=== PATIENT | female | born 1945 | race Caucasian/White ===

== ENCOUNTER 2018-09-16 08:00 | Outpatient (CLI) | payer MEDICARE, OTHER ==
--- NOTE | 2018-09-16 10:56 | MRI ---
BRAIN MRI WITHOUT CONTRAST: Date: 09-16-18 Comparison: None. History: Altered mental status, confusion, and memory loss. Technique: Multiplanar, multisequence MR imaging of the brain is obtained without contrast. FINDINGS: The diffusion weighted imaging demonstrates no evidence for acute infarction and the gradient echo im aging demonstrates no evidence for intracranial hemorrhage. There is a complex intraaxial mass lesion on the right. This lesion is markedly heterogeneous. It dem onstrates a complex lobulated T2 hyperintense component which measures 3.9 x 3.2 cm with internal poly ear septations. There is vasogenic edema adjacent to this posterior component involving the temporal/ occipital region abutting the lateral aspect of the atrium of the right lateral ventricle. There is a lobulated isointense component anteriorly measuring at least 3.8 x 3.9 cm. Thus, this complex lesion centered in the frontotemporal region on the right measures at least 7.3 cm in AP dimension and 4.6 cm in transverse dimension. There is resultant prominent mass effect. There is midline shift from rig ht to left measuring approximately 8-9 mm at the level of the third ventricle. There is associated waddell bfalcine herniation with mild dilation of the left lateral ventricle and mass effect on the right francis tricle. There is also mass effect on the midbrain with flattening of the cerebral peduncle on the rig ht. The imaged paranasal sinuses/mastoid air cells are well aerated. Arterial flow voids at the axial lev el of the skull base appear grossly unremarkable on the T2 weighted imaging. IMPRESSION: 1. Large complex intraaxial lesion with associated mass effect in the frontotemporal region on the ri ght. Findings are hardly concerning for primary brain neoplasm, such as GBM. Recommend further assess ment with contrast enhanced MRI. Recommend neural surgical consultation as well. Results were called to Dr. Parada at 9:15 a.m. 09-16-18. Code CR. POS: [facility]
== END 2018-09-16 08:01 | disposition home or self-care (01) ==
LOC: BICMRI 08:00
PROVIDERS: ATTEND Family Medicine
DX: R41.82 Altered mental status, unspecified (principal); G93.89 Other specified disorders of brain; R22.0 Localized swelling, mass and lump, head
CPT/HCPCS: 70551

== ENCOUNTER 2018-09-20 11:53 | Outpatient (CLI) | payer MEDICARE, OTHER ==
[~2018-09-20 11:53] MED LIST: Gadobenate Dimeglumine 529 MG/1 ML (20ML VIAL) ONE
--- NOTE | 2018-09-20 14:30 | MRI ---
CONTRAST ENHANCED MRI BRAIN: 09/20/2018 COMPARISON: 09/16/2018 FINDINGS: Contrast enhanced MR images of the brain demonstrate a complex right middle cranial fossa mass. The lesion appears to have a large enhancing component anteriorly. The enhancing component measures 3.9 x 3.4 x 4.2 cm. The lesion appears to be dural-based and appears to originate in the right middle cr anial fossa dura, extending posteriorly, into the right middle cranial fossa, with a cystic component posteriorly, extending into the right temporal lobe. The adjacent areas of T2 signal abnormality ex tend into the right temporal lobe white matter. The mass extends anteriorly through the squamosal po rtion of the right temporal bone, abutting but not extending into the right automotive painter helper space. The differential diagnosis for this lesion includes dural mass, such as a meningioma, versus possibly dural metastases. IMPRESSION: Findings concerning for a dural-based intracranial enhancing mass. POS: VANDANA
== END 2018-09-20 11:54 | disposition home or self-care (01) ==
LOC: BICMRI 11:53 → EDSTATUS 12:45
PROVIDERS: ATTEND Neurological Surgery
DX: D49.6 Neoplasm of unspecified behavior of brain (principal)
CPT/HCPCS: 70552; A9577

== ENCOUNTER 2018-09-26 08:16 | Inpatient (IN) | payer MEDICARE ==
[2018-09-26] MEDS ORDERED: Bacitracin Zinc Ointment 30 gm TUBE ONE (10:44)
[2018-09-26 11:09] LABS: #Eosinphils 0.2 thou/uL (0.0-0.7); #Lymphocytes 1.3 thou/uL (1.20-3.40); #Monocytes 0.6 thou/uL (0.11-0.59); %Basophils 0.4 % (0.0-1.0); %Eosinophils 2.8 % (0.0-10.0); %Lymphocytes 17.8 % (21.0-51.0); %Monocytes 8.1 % (0.0-10.0); %Neutrophils 70.9 % (42.0-75.0); Hemoglobin 14.5 g/dL (12.0-16.0); Mean Corpuscular HGB CONC 33.2 g/dL (32.0-36.0); Mean Corpuscular Hemoglobin 32.7 pg (27.0-31.0); Mean Corpuscular Volume 98.5 fL (78.0-98.0); Mean Platelet Volume 7.6 fL (7.4-10.4); Platelet Count 174 thou/uL (130-400); RBC Distribution Width 12.1 % (11.5-14.5); Red Blood Cell (RBC) Count 4.42 mill/uL (4.20-5.40); White Blood Cell (WBC) Count 7.1 thou/uL (4.8-10.8)
[2018-09-26] MEDS ORDERED: Fentanyl 250 MCG/5 ML VIAL ONE (11:16)
[2018-09-26 11:23] LABS: Anion Gap 13 mmol/L (10-20); BUN (Urea Nitrogen) 18 mg/dL (9.8-20.1); Calc. Creatinine Clearance 61 mL/min (70-130); Calcium 10.9 mg/dL (7.8-10.44); Carbon Dioxide 28 mmol/L (23-31); Chloride 106 mmol/L (98-107); Estimated GFR-MDRD 66; Glucose 94 mg/dL (83-110); Potassium 4.4 mmol/L (3.5-5.1); Sodium 143 mmol/L (136-145)
[2018-09-26] MEDS ORDERED: Mannitol 12.5 GM/50 ML ONE (12:01)
[2018-09-26] MEDS ORDERED: Fentanyl 100 MCG/2 ML VIAL ONE ×2 (13:36→15:50)
[2018-09-26] MEDS ORDERED: hydrALAZINE 20 MG/ML VIAL ONE (14:24)
[2018-09-26] MEDS ORDERED: Nitroglycerin 50 MG/250 ML BOT 250 ML ONE (14:28)
[2018-09-26] MEDS ORDERED: Promethazine HCl 25 MG/ML VIAL SLOW IVP PRN (14:53)
[2018-09-26] MEDS ORDERED: Ondansetron HCl/PF 4 MG/2 ML Vial IVP PRN (14:53)
[2018-09-26] MEDS ORDERED: Promethazine HCl 25 MG/ML VIAL IM PRN ×2 (14:53→15:00)
[2018-09-26] MEDS ORDERED: Docusate 100 MG CAP PO PRN (15:00)
[2018-09-26] MEDS ORDERED: HYDROcodone/Acetaminophen 10/325 mg Tablet PO PRN ×2 (15:00)
[2018-09-26] MEDS ORDERED: Ondansetron PF 4 MG/2 ML Vial SLOW IVP PRN (15:00)
[2018-09-26] MEDS ORDERED: Morphine 4 MG/ML VIAL SLOW IVP PRN (15:00)
[2018-09-26] MEDS ORDERED: diphenhydrAMINE 50 MG CAP PO PRN (15:00)
[2018-09-26] MEDS ORDERED: Promethazine 25 MG TAB PO PRN (15:00)
[2018-09-26] MEDS ORDERED: Acetaminophen 650 MG Suppository PR PRN (15:00)
[2018-09-26] MEDS ORDERED: diphenhydrAMINE 50 MG/ML VIAL IVP PRN (15:00)
[2018-09-26] MEDS ORDERED: Mag-Al 1200 mg/1200 mg/30 ML UDCUP PO PRN (15:00)
[2018-09-26] MEDS ORDERED: Promethazine HCl 25 MG SUPP PR PRN (15:00)
[2018-09-26] MEDS ORDERED: ePHEDrine 50 MG/ML VIAL ONE (15:02)
[2018-09-26] MEDS ORDERED: Dexamethasone 20 MG/5 ML VIAL ONE (15:02)
[2018-09-26] MEDS ORDERED: PROPOFOL 200 MG/20 ML VIAL ONE (15:02)
[2018-09-26] MEDS ORDERED: Ondansetron PF 4 MG/2 ML Vial ONE (15:02)
[2018-09-26] MEDS ORDERED: Rocuronium Bromide 10 MG/ML (10ML VIAL) ONE (15:02)
[2018-09-26] MEDS ORDERED: Lidocaine 1% PF 5 ML VIAL ONE (15:02)
[2018-09-26] MEDS ORDERED: Dexamethasone 4 mg/ml Vial ONE (17:08)
--- NOTE | 2018-09-26 17:13 | CT ---
NONCONTRAST CT HEAD: Date: 09-26-18 History: Post craniotomy. No left sided movement. Comparison: MRI brain 09-20-18, 09-16-18. FINDINGS: Findings related to right sided craniotomy are noted with skin clips seen in the scalp soft tissues w ith scalp soft tissue swelling and subcutaneous emphysema related to post-surgical changes. There is evidence of pneumocephalus and gas and small amount of fluid seen within a subdural collection beneat h the craniotomy defect in the right anterior frontal region and in the middle cranial fossa. There i s a small amount of increased density seen in the right frontotemporal lobe likely related to interva l post-surgical change. Areas of vasogenic edema involving the right temporal lobe and extending to t he right parietal lobe are again present. However, there is a low density area seen within the right anterior frontal lobe which is beneath the craniotomy defect which was not seen on prior exam. Area o f infarction is a possibility. There is mass effect in the right cerebral hemisphere with sulcal effacement present. There is shift of the midline structures to the left measuring approximately 9-10 mm. There is mild effacement of th e right lateral ventricle compared to the left. Mercado-white differentiation on the left is maintained with evidence of chronic small vessel ischemic c hanges also seen on prior MRI exam. IMPRESSION: 1. Acute infarction involving the right anterior frontal lobe. 2. Post-surgical changes related to excision of the enhancing solid and cystic mass within the right frontotemporal region with overlying craniotomy defect. 3. Pneumocephalus with fluid beneath the craniotomy defect in a subdural location related to the post -operative change. 4. Stable vasogenic edema involving the right temporal and parietal occipital region similar to prior MRI exam. 5. Residual tumor is difficult to evaluate on this nonenhanced CT scan exam; although, there is a low density area seen within the posterior right temporal lobe which may be related to a small residual component of the cystic portion of the mass. 6. Mass effect right cerebral hemisphere with evidence of sulcal effacement and mass effect on the ri ght lateral ventricle. There is shift of the midline structures to the left measuring 9-10 mm. 7. Small amount of increased density in the subdural location in the post-operative bed likely attrib utable to a tiny amount of hemorrhage related to recent post-surgical change. 8. Finding of acute infarction discussed with Govind, nurse in ICU on 09/26/18 at 1750 hours. POS: VANDANA
[2018-09-26] MEDS: hydrALAZINE 20 MG/ML VIAL SLOW IVP PRN (19:08)
[2018-09-26] MEDS: Dexamethasone 4 mg/ml Vial SLOW IVP SCH ×2 (19:15→23:45)
[2018-09-26] MEDS: Sodium Chloride 0.9% 1,000 ML IV SCH (19:16)
--- NOTE | 2018-09-26 20:13 | OP ---
DATE OF PROCEDURE: 09/26/2018 ORACLE ADF DEVELOPER: Rey. PROCEDURES PERFORMED: Right frontotemporal craniotomy, resection of meningioma. DESCRIPTION OF PROCEDURE: The patient was brought to the operating room and intubated. She was positioned supine. The head was turned to left exposing the right frontotemporal region. The head was fixed in the Deonte medical director/head team physician. A standard curvilinear right frontotemporal incision was made in question-wilfrid fashion and the scalp reflected anteriorly. A standard craniotomy was performed and the dura reflected anteriorly. It was obvious that the dura was quite infiltrated by tumor, hypervascular and thickened in the temporal region. We immediately identified the tumor, sent for frozen section, which was felt to be benign meningioma. The tumor had a good plane from the surrounding brain, and we sequentially dissected the tumor from the brain. In one region next to middle cerebral artery, there was some close approximation of the tumor with some modest adherence. Therefore, we left a very small piece of tumor attached to the middle cerebral artery and removed the remainder of tumor. There was likely also tumor infiltrating the dura of the lateral sphenoid wing, although gross tumor in this region was removed. After complete resection with those exceptions was achieved, the brain was extensively irrigated and hemostasis was secured. The brain was lined with Surgicel. The dura was reapproximated with DuraGen artificial dura. The skull was replaced with titanium micro plates and screws, and the scalp was closed in anatomic layers. Job ID: [id number]
[2018-09-26] MEDS: CEFAZOLIN 2 GM in Premix Bag 1 BAG IVPB SCH (21:28)
[2018-09-26] MEDS: Famotidine/PF 20 mg/2ml Vial SLOW IVP SCH (21:28)
[2018-09-26] MEDS: Morphine 4 MG/ML VIAL SLOW IVP PRN (21:45)
[2018-09-26] MEDS: niCARdipine HCl 25 MG in Sodium Chloride 0.9% 250 ML 240 ML IVPB SCH (23:45)
[2018-09-27] MEDS: niCARdipine HCl 25 MG in Sodium Chloride 0.9% 250 ML 240 ML IVPB SCH (04:07)
[2018-09-27] MEDS: CEFAZOLIN 2 GM in Premix Bag 1 BAG IVPB SCH (05:27)
[2018-09-27] MEDS: Dexamethasone 4 mg/ml Vial SLOW IVP SCH ×3 (05:27→17:25)
[2018-09-27] MEDS: Sodium Chloride 0.9% 1,000 ML IV SCH ×2 (05:28→17:26)
--- NOTE | 2018-09-27 06:10 | CT ---
CT BRAIN WITHOUT CONTRAST: INDICATIONS: History of craniotomy. COMPARISON: Prior exam dated 09/26/2018 and MRI brain dated 09/20/2018. FINDINGS: There are evolutionary changes involving the infarct of the anterior-inferior right frontal lobe. Mu ch more prominent vasogenic edema is seen within the region of infarct. There is a similar appearing evolutionary change involving the infarct in the anterior right temporal lobe. There is some increasing hyperdensity seen within the tumor resection bed of the anterior right tempo ral lobe and right sylvian fissure, some of which may reflect increasing layered subarachnoid hemorrh age within the resection cavity. Some of it may reflect accentuation of hyperdense soft tissue withi n this resection cavity, possibly related to residual tumor. The amount of pneumocephalus overlying the right frontal lobe has diminished. There is slightly more gas seen overlying the anterior left frontal lobe. A small amount of layered subdural hemorrhage ov erlying the right frontal lobe is similar appearing. The midline shift has improved, from right to left, at 7.6 mm, where previously it measured 9.5 mm. Basilar cisterns remain pain. The craniectomy of the right frontal lobe is stable. The mastoid air cells and paranasal sinuses are clear. IMPRESSION: 1. Evolutionary CT changes of acute infarction involving the anterior right frontal lobe, as well as the anterior aspect of the right temporal lobe, surrounding the resection cavity. 2. Slightly increased layered hemorrhage seen within the resection cavity of the right sylvian fissu re. 3. Slight decrease in size and increase in distribution of the pneumocephalus overlying the anterior cranial fossa. 4. Improvement in the right to left midline shift to 7.6 mm, where previously it measured 9.5 mm. 5. The basilar cisterns remain patent. No hydrocephalus is present. 6. Slight increased hyperdense material outlining the resection cavity may reflect evolutionary adrain ges of the resection bed, related to increased density of the underlying soft tissues of the resected tumor, possibly related to residual tumor. 7. Subdural hemorrhage overlying the right frontal convexity is likely stable, when accounting for t he decrease in the extent of the pneumocephalus. POS: FABIANA
[2018-09-27] MEDS ORDERED: Dexamethasone 4 mg/ml Vial SLOW IVP SCH (08:00)
--- NOTE | 2018-09-27 08:47 | PRG ---
DATE OF SERVICE: 09/27/2018 SUBJECTIVE: The patient is a 73-year-old female, status post right-sided craniotomy with tumor resection. Following the surgery, she was transitioned to the ICU, where she has been monitored closely with q.1 neuro checks and systolic blood pressure has been kept below 150. Following the surgery, she did develop left-sided weakness. This was evaluated with repeat noncontrast head CT postoperatively as well as today, which show a right-sided MCA infarct. This morning visiting, she is having some improvement in her left-sided strength per family and nursing. The patient awakens easily to voice. She opens her eyes. Her pupils are equal and reactive. She is noted to have a left-sided facial droop. She is able to move all 4s, but is slightly weak in the left upper and left lower extremity. We will plan to wean her steroids over the next few days, screen her for inpatient rehabilitation. We will go ahead and discontinue her Austin today. We will allow her blood pressure to systolic goal to be less than 160 and continue to advance her diet. Dr. Abad has also met with the family and updated them on recent CT findings. Job ID: [id number]
[2018-09-27] MEDS: Fish Oil 1,000 MG CAP PO SCH (08:58)
[2018-09-27] MEDS: Potassium Chloride 8 MEQ TAB PO SCH (08:58)
[2018-09-27] MEDS: Anastrozole 1 MG TAB PO SCH (08:58)
[2018-09-27] MEDS: Ascorbic Acid 500 mg Chewable Tablet PO SCH (08:58)
[2018-09-27] MEDS: Multivit, Therapeutic 1 TAB PO SCH (08:59)
[2018-09-27] MEDS: Magnesium Oxide 250 MG TAB PO SCH (08:59)
[2018-09-27] MEDS ORDERED: SELENIUM 200 MCG PO SCH (09:00)
[2018-09-27] MEDS: Famotidine/PF 20 mg/2ml Vial SLOW IVP SCH ×2 (09:50→20:18)
[2018-09-27] MEDS: Morphine 4 MG/ML VIAL SLOW IVP PRN (15:49)
--- NOTE | 2018-09-27 15:54 | EKG ---
Test Reason : PREOP Blood Pressure : / mmHG Vent. Rate : 071 BPM Atrial Rate : 071 BPM P-R Int : 112 ms QRS Dur : 120 ms QT Int : 406 ms P-R-T Axes : 053 020 129 degrees QTc Int : 441 ms Normal sinus rhythm Left bundle branch block Abnormal ECG Confirmed by SUSU BRAXTON ([id number]) on 09/27/2018 3:54:22 PM Referred By: JOE Confirmed By:SUSU BRAXTON
--- NOTE | 2018-09-27 18:11 | PDOC.PN ---
- Subjective Encounter Start Date: 09/27/18 Encounter Start Time: 11:40 Pt seen for management of medical comorbidities including hypercalcemia. Denies chest pain, shortness of berath, fevers or chills. - Objective MAR Reviewed: Yes Vital Signs & Weight: Vital Signs (12 hours) Temp Pulse Pulse BP BP Pulse Ox Pulse Ox 09/27/18 15:00 98.6 F 09/27/18 11:00 98.6 F 09/27/18 09:26 74 75 127/61 134/56 L 96 09/27/18 08:00 93 L 09/27/18 07:00 98.4 F Pulse Ox 09/27/18 15:00 09/27/18 11:00 09/27/18 09:26 95 09/27/18 08:00 09/27/18 07:00 Weight Weight 144 lb Most Recent Monitor Data Heart Rate from ECG 76 NIBP 129/59 NIBP BP-Mean 82 Respiration from ECG 19 SpO2 96 I&O: 09/26/18 09/27/18 09/28/18 06:59 06:59 06:59 Intake Total 1108.75 350 Output Total 1405 830 Balance -296.25 -480 Result Diagrams: 09/26/18 10:35 09/26/18 10:35 EKG Reviewed by me: Yes (Tele: NSR) Phys Exam - Physical Examination Constitutional: NAD HEENT: moist MMs Neck: supple Respiratory: clear to auscultation bilateral Cardiovascular: RRR Gastrointestinal: soft Neurological: moves all 4 limbs Psychiatric: normal affect Dx/Plan (1) Hypercalcemia Code(s): E83.52 - HYPERCALCEMIA Status: Chronic Comment: continue Zometa after clarifying when pt takes Zometa (2) H/O malignant neoplasm of breast Code(s): Z85.3 - PERSONAL HISTORY OF MALIGNANT NEOPLASM OF BREAST Status: Chronic Comment: continue anostrazole - Plan PT/OT, speech therapy, out of bed/ambulate * . s/p surgery for meningioma. DVT prphylaxis and pain management per neurosurgery service. Review of Systems - Review of Systems Cardiovascular: negative: chest pain, palpitations, orthopnea, paroxysmal nocturnal dyspnea, edema, light headedness Gastrointestinal: negative: Nausea, Vomiting, Abdominal Pain, Diarrhea, Constipation, Melena, Hematochezia - Medications/Allergies Allergies/Adverse Reactions: Allergies Allergy/AdvReac Type Severity Reaction Status Date / Time No Known Allergies Allergy Verified 09/23/18 14:50 Medications: Current Medications Acetaminophen (Tylenol) 650 mg PO Q4H PRN PRN Reason: Headache/Fever or Mild Pain Acetaminophen (Tylenol) 650 mg CO Q4H PRN PRN Reason: Headache/Fever or Pain1-3 Hydrocodone Bitart/Acetaminophen (Calvert 10/325) 1 tab PO Q4H PRN PRN Reason: Pain 4-6 Hydrocodone Bitart/Acetaminophen (Calvert 10/325) 2 tab PO Q4H PRN PRN Reason: Pain 7-10 Al Hydroxide/Mg Hydroxide (Maalox) 30 ml PO Q6H PRN PRN Reason: Heartburn or Indigestion Anastrozole (Arimidex) [address] [facility] Last Admin: 09/27/18 08:58 Dose: Not Given Ascorbic Acid (Vitamin C) 1,[address] [facility] Last Admin: 09/27/18 08:58 Dose: Not Given Dexamethasone (Decadron) [address] [facility] Last Admin: 09/27/18 17:25 Dose: 4 mg Diphenhydramine HCl (Benadryl) 50 mg PO Q6H PRN PRN Reason: Itching & Insomnia Diphenhydramine HCl (Benadryl) 50 mg IVP Q6H PRN PRN Reason: Itching & Insomnia Docusate Sodium (Colace) 100 mg PO BIDPRN PRN PRN Reason: Constipation Famotidine (Pepcid) 20 [address]OW IVP Q12[address] [facility] Last Admin: 09/27/18 09:50 Dose: 20 mg Fish Oil (Fish Oil) 1,[address] [facility] Last Admin: 09/27/18 08:58 Dose: Not Given Hydralazine HCl (Apresoline) 5 mg SLOW IVP Q15MIN PRN PRN Reason: SBP > 140 Last Admin: 09/26/18 19:08 Dose: 5 mg Sodium Chloride (Normal Saline 0.9%) 1,000 mls @ 75 mls/hr IV .[id number] [facility] Last Admin: 09/27/18 17:26 Dose: 1,000 mls Nicardipine HCl 25 mg/ Sodium (Chloride) 250 mls @ 0 mls/hr IVPB INF CAIO; Protocol Last Admin: 09/27/18 04:07 Dose: 250 mls Labetalol HCl (Labetalol Hcl) 10 mg SLOW IVP Q15MIN PRN PRN Reason: SBP > 140 Last Admin: 09/26/18 22:44 Dose: 10 mg Magnesium Oxide (Magnesium Oxide) [address] [facility] Last Admin: 09/27/18 08:59 Dose: Not Given Morphine Sulfate (Morphine) 4 mg SLOW IVP Q1H PRN PRN Reason: SEVERE BREAKTHROUGH PAIN Last Admin: 09/27/18 17:31 Dose: 4 mg Morphine Sulfate (Morphine) 2 mg SLOW IVP Q1H PRN PRN Reason: FOR MOD BREAKTHROUGH PAIN Last Admin: 09/27/18 15:49 Dose: 2 mg Multivitamins (Theragran) [address] [facility] Last Admin: 09/27/18 08:59 Dose: Not Given Ondansetron HCl (Zofran) 4 mg SLOW IVP Q8H PRN PRN Reason: Nausea/Vomiting Last Admin: 09/26/18 21:28 Dose: 4 mg Potassium Chloride (Slow-K 8 Meq) 8 meq PO QAM-WM [facility] Last Admin: 09/27/18 08:58 Dose: Not Given Promethazine HCl (Phenergan) 12.5 mg IM Q4H PRN PRN Reason: Nausea Promethazine HCl (Phenergan) 12.5 mg PO Q4H PRN PRN Reason: Nausea Promethazine HCl (Phenergan Suppository) 12.5 mg CO Q4H PRN PRN Reason: Nausea
--- NOTE | 2018-09-27 23:44 | CON ---
DATE OF CONSULTATION: 09/27/2018 HISTORY OF PRESENT ILLNESS: Ms. Banks is a 73-year-old female, who underwent a craniotomy for a brain tumor. Pathology is pending, but the family has been told the tumor was benign. I was consulted because of the patient's presence in the Critical Care Unit. PAST MEDICAL HISTORY: Remarkable for 1. Breast implant in the past according to old records. 2. History of breast biopsy, 98. 3. History of tonsillectomy. 4. History of asthma that resolved after 1982. 5. History of chronic intermittent sinus problems and bronchitis. 6. History of a laparoscopic cholecystectomy in the past. FAMILY HISTORY: Positive for father with complications of broken hip. He had heart disease and COPD. Mother at 65 with COPD and heart failure. She lost a sister at 56 with breast cancer. Grandmother had gallbladder problems. 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 Does not smoke. Does not drink. REVIEW OF SYSTEMS: 10 point review of systems completed, not accurately obtainable. PHYSICAL EXAMINATION: VITAL SIGNS: Heart rates in the 70s, blood pressure 136/60, respiratory rates in the 20s, oximetry is 96% on room air. HEENT: Head is bandaged. She is dysarthric. She is not moving her left side. HEENT: Pupils are equal. NECK: Without lymphadenopathy. LUNGS: Clear. HEART: Regular rhythm. S1 and S2 are normal. I do not hear murmur. ABDOMEN: Soft and nontender. EXTREMITIES: Without clubbing, cyanosis, or edema. She is not moving her left side as much as the right when I was in the room. IMPRESSION: 1. Status post resection of a brain tumor. 2. Perioperative cerebrovascular accident. 3. History of breast cancer. 4. Majority of her infarction appears to be in her anterior right frontal lobe in the anterior aspect of the right temporal lobe surrounding the area of resection with hemorrhage in the resection cavity. Midline shift on today's CT had improved. Status post craniotomy with a perioperative stroke, clinically stable at this time. I met with family and answered their questions. She is protecting her airway and has no hemodynamic issues at this time. This is a 70 minute consult, with greater than 50% of time spent on unit coordinating care. Job ID: [id number] [facility]
[2018-09-28] MEDS: Dexamethasone 4 mg/ml Vial SLOW IVP SCH ×3 (02:15→21:43)
--- NOTE | 2018-09-28 07:56 | CT ---
PRELIMINARY REPORT/[facility]/EMERGENTY AFTER-HOURS PROCEDURE CT Head Without Contrast EXAM DATE/TIME: 09/28/2018 1:35 AM CLINICAL HISTORY: 73 years old, female; Signs and symptoms; Other: Neuro change; Prior surgery; Surgery date: Postopera tive (0-2 days); Surgery type: Crainiotomy; Patient HX: Patient is more confused and harder to [place] TECHNIQUE: Axial computed tomography images of the head/brain without contrast. COMPARISON: CT Brain WO Con 09/27/2018 4:23 AM FINDINGS: Brain: As before, large area of low attenuation in the right middle cerebral artery distribution. Aga in, there are scattered areas of hemorrhage in this region, not significantly changed. Continued prom inent mass effect, with about 8-9 mm of [id number] midline shift. No definite new hemorrhage in the interval. No other definite acute infarct by CT. MRI could be more sensitive/specific for detection, as clinica lly directed. Ventricles: Ventricle size is not significantly changed. Bones/joints: No definite acute skull fracture. Postsurgical changes of recent right craniotomy again noted. Sinuses: Included paranasal sinuses are essentially clear. Mastoid air cells: No significant acute finding. IMPRESSION: 1. Essentially stable areas of low attenuation and scattered hemorrhage in the right middle cerebral artery distribution. 2. Continued prominent mass effect, with about 8-9 mm of [id number] midline shift. 3. Overall, no significant interval change in the above appearance. 4. No definite new hemorrhage in the interval. 5. No other definite acute infarct by CT, see above. Thank you for allowing us to participate in the care of your patient. Dictated and Authenticated by: Sukhi Villeda MD 09/28/2018 2:42 AM Central Time ([place] & [place]) FINAL REPORT EMERGENCY AFTER HOURS CT OF THE BRAIN WITHOUT CONTRAST: Date: 09/28/18 COMPARISON: 09/27/18. FINDINGS/IMPRESSION: I agree with the findings and impression given in the preliminary report per [facility] physician. Stable s cattered areas of edema and hemorrhage in the right MCA distribution.
--- NOTE | 2018-09-28 08:39 | PRG ---
DATE OF SERVICE: 09/28/2018 SUBJECTIVE: The patient is postoperative day #2, status post right-sided craniotomy for right-sided temporal tumor resection. Following the surgery, she was transitioned to the ICU. She was noted to have left-sided weakness and repeat CT was found to have right-sided MCA infarct. Her Austin catheter was removed yesterday and she has been transitioned off the Cardene drip. Her blood pressure has been well controlled with systolic blood pressure goal of less than 160. She was evaluated by Speech Therapy who recommended a feeder and adjusted texture of her diet. She was also evaluated by PT and OT and will require inpatient rehabilitation at discharge. Case Management is assisting with this process. Overnight, the patient developed some increased confusion, which appeared to wax and wane. New CT was ordered, which showed evolving right MCA infarct, but no significant change. The patient awakens easily to voice. She has slurred speech and left sided facial droop. Facial twitching noted intermittently. She follows commands and has good strength onthe right side. She has seen spontaneously moving left, but has significant left-sided neglect. Will check am CBC and BMP. 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 Will start on Keppra and consult neurology. We will transition the patient to the floor. She will continue to need PT, OT, and Speech Therapy recommendations. She require inpatient rehabilitation and Case Management to continue to assist in discharge planning. Job ID: [id number] MTDD
[2018-09-28 09:17] LABS: Hemoglobin 12.5 g/dL (12.0-16.0); Mean Corpuscular HGB CONC 32.6 g/dL (32.0-36.0); Mean Corpuscular Hemoglobin 32.3 pg (27.0-31.0); Mean Corpuscular Volume 99.3 fL (78.0-98.0); Mean Platelet Volume 7.7 fL (7.4-10.4); Platelet Count 173 thou/uL (130-400); RBC Distribution Width 12.3 % (11.5-14.5); Red Blood Cell (RBC) Count 3.85 mill/uL (4.20-5.40); White Blood Cell (WBC) Count 23.1 thou/uL (4.8-10.8)
[2018-09-28] MEDS: Sodium Chloride 0.9% 1,000 ML IV SCH (09:19)
[2018-09-28] MEDS: Magnesium Oxide 250 MG TAB PO SCH (09:20)
[2018-09-28] MEDS: Famotidine/PF 20 mg/2ml Vial SLOW IVP SCH ×2 (09:20→20:10)
[2018-09-28] MEDS: Potassium Chloride 8 MEQ TAB PO SCH (09:20)
[2018-09-28] MEDS: Fish Oil 1,000 MG CAP PO SCH (09:20)
[2018-09-28] MEDS: Ascorbic Acid 500 mg Chewable Tablet PO SCH (09:21)
[2018-09-28] MEDS: Multivit, Therapeutic 1 TAB PO SCH (09:21)
[2018-09-28 09:28] LABS: Anion Gap 12 mmol/L (10-20); BUN (Urea Nitrogen) 20 mg/dL (9.8-20.1); Calc. Creatinine Clearance 72 mL/min (70-130); Carbon Dioxide 25 mmol/L (23-31); Chloride 113 mmol/L (98-107); Estimated GFR-MDRD 79; Glucose 165 mg/dL (83-110); Potassium 3.6 mmol/L (3.5-5.1); Sodium 146 mmol/L (136-145)
[2018-09-28] MEDS: Anastrozole 1 MG TAB PO SCH (09:28)
[2018-09-28 09:55] LABS: Band 7 % (5-11); Lymphocytes 5 % (21-51); MDiff Complete? YES; Monocytes 4 % (0-10); Neutrophil 83 % (42-75); RBC Morphology Normal; Reactive Lymphocytes 1 % (0-10)
[2018-09-28] MEDS ORDERED: Sodium Chloride 0.45% 500 ML IV SCH (10:15)
[2018-09-28] MEDS: hydrALAZINE 20 MG/ML VIAL SLOW IVP PRN (10:27)
--- NOTE | 2018-09-28 15:15 | PQF ---
ALESHIA ZUNIGA JONATHAN A MD [id number] CLINICAL DOCUMENTATION IMPROVEMENT CLARIFICATION FORM: ICD-10 Updated PLEASE DO AN ADDENDUM TO THE PROGRESS NOTE WITH ANY DOCUMENTATION UPDATES OR ADDITIONS AND CARRY THROUGH TO DC SUMMARY. THANK YOU. DATE: 09/28/2018 ATTN: DR. DIAZ Please exercise your independent, professional judgment in responding to the clarification form. Clinical indicators are provided on the bottom of this form for your review Please check appropriate box(s): [ ] Cerebral edema / Vasogenic edema [ ] Compression of brain Due to: [ ] Intracranial tumor [ ] Intracranial hematoma [ ] Acute cerebral infarction [ ] Traumatic brain injury [ ] Obstructive hydrocephalus [ ] Other diagnosis [ ] Unable to determine In addition, please specify: Present on Admission (POA): [ ] Yes [ ] No [ ] Unable to determine For continuity of documentation, please document condition throughout progress notes and discharge summary. Thank You. CLINICAL INDICATORS - SIGNS / SYMPTOMS / LABS 3/4 CT findings: Stable vasogenic edema involving the right temporal and parietal occipital region similar to prior MRI exam. Mass effect right cerebral hemisphere with evidence of sulcal effacement and mass effect on the right lateral ventricle. there is shift of the midline structures to the left measuring 9-10 mm. RISK FACTORS Diagnosis of Meningioma Craniotomy TREATMENTS Systolic BP kept below 150 [facility] / MRIs Thank you, Sanjuanita (This form is maintained as a part of the permanent medical record) 2014 [employer] All Rights Reserved Sanjuanita Underwood RN, CDIS [email or web address] [phone] [facility]
[2018-09-28] MEDS ORDERED: Lorazepam 2 MG/ML VIAL SLOW IVP PRN (17:10)
[2018-09-28] MEDS ORDERED: levETIRAcetam In NaCl (Iso-Os) 1,500 MG in Premix Bag 1 BAG IVPB SCH (17:15)
--- NOTE | 2018-09-28 17:48 | PDOC.PN ---
- Subjective Encounter Start Date: 09/28/18 Encounter Start Time: 10:40 Pt seen for followup re; hypercalcemia. c/o thirst. No chest pain. - Objective Vital Signs & Weight: Vital Signs (12 hours) Temp Pulse Pulse BP BP Pulse Ox Pulse Ox 09/28/18 16:00 98.6 F 09/28/18 12:00 98.5 F 09/28/18 11:00 98.2 F 09/28/18 09:10 88 99 155/72 H 157/72 H 93 L 09/28/18 08:00 98.7 F 93 L Pulse Ox 09/28/18 16:00 09/28/18 12:00 09/28/18 11:00 09/28/18 09:10 93 L 09/28/18 08:00 Weight Weight 144 lb Most Recent Monitor Data Heart Rate from ECG 94 NIBP 163/76 NIBP BP-Mean 105 Respiration from ECG 20 SpO2 94 I&O: 09/27/18 09/28/18 09/29/18 06:59 06:59 06:59 Intake Total 1108.75 2036 500 Output Total 1405 1320 425 Balance -296.25 716 75 Result Diagrams: 09/28/18 08:57 09/28/18 08:57 Phys Exam - Physical Examination Constitutional: NAD HEENT: moist MMs Neck: supple Respiratory: clear to auscultation bilateral Cardiovascular: RRR Gastrointestinal: soft Neurological: moves all 4 limbs LUE weakness Psychiatric: normal affect Dx/Plan (1) Hypercalcemia Code(s): E83.52 - HYPERCALCEMIA Status: Chronic Comment: calcium level normal today (2) H/O malignant neoplasm of breast Code(s): Z85.3 - PERSONAL HISTORY OF MALIGNANT NEOPLASM OF BREAST Status: Chronic Comment: on anostrazole - Plan plan discussed w/ family, PT/OT, speech therapy, out of bed/ambulate * . Review of Systems - Review of Systems Cardiovascular: negative: chest pain, palpitations, orthopnea, paroxysmal nocturnal dyspnea, edema, light headedness - Medications/Allergies Allergies/Adverse Reactions: Allergies Allergy/AdvReac Type Severity Reaction Status Date / Time No Known Allergies Allergy Verified 09/23/18 14:50 Medications: Current Medications Acetaminophen (Tylenol) 650 mg PO Q4H PRN PRN Reason: Headache/Fever or Mild Pain Acetaminophen (Tylenol) 650 mg DC Q4H PRN PRN Reason: Headache/Fever or Pain1-3 Last Admin: 09/28/18 14:04 Dose: 650 mg Hydrocodone Bitart/Acetaminophen ([place] 10/325) 1 tab PO Q4H PRN PRN Reason: Pain 4-6 Hydrocodone Bitart/Acetaminophen ([place] 10/325) 2 tab PO Q4H PRN PRN Reason: Pain 7-10 Al Hydroxide/Mg Hydroxide (Maalox) 30 ml PO Q6H PRN PRN Reason: Heartburn or Indigestion Anastrozole (Arimidex) 1 mg PO QAM [facility] Last Admin: 09/28/18 09:28 Dose: 1 mg Ascorbic Acid (Vitamin C) 1,000 mg PO DAILY [facility] Last Admin: 09/28/18 09:21 Dose: 1,000 mg Dexamethasone (Decadron) 2 mg SLOW IVP Q8HR [facility] Stop: 09/29/18 14:01 Last Admin: 09/28/18 15:59 Dose: 2 mg Diphenhydramine HCl (Benadryl) 50 mg PO Q6H PRN PRN Reason: Itching & Insomnia Diphenhydramine HCl (Benadryl) 50 mg IVP Q6H PRN PRN Reason: Itching & Insomnia Docusate Sodium (Colace) 100 mg PO BIDPRN PRN PRN Reason: Constipation Famotidine (Pepcid) 20 mg SLOW IVP Q12HR [facility] Last Admin: 09/28/18 09:20 Dose: 20 mg Fish Oil (Fish Oil) 1,000 mg PO DAILY [facility] Last Admin: 09/28/18 09:20 Dose: Not Given Hydralazine HCl (Apresoline) 5 mg SLOW IVP Q15MIN PRN PRN Reason: SBP > 140 Last Admin: 09/28/18 10:27 Dose: 5 mg Sodium Chloride (Normal Saline 0.9%) 1,000 mls @ 75 mls/hr IV .[id number] [facility] Last Admin: 09/28/18 09:19 Dose: 1,000 mls Levetiracetam 500 mg/ Device 100 mls @ 200 mls/hr IVPB BID [facility] Last Admin: 09/28/18 09:19 Dose: 100 mls Levetiracetam 1,500 mg/ Device 100 mls @ 200 mls/hr IVPB 1715 [facility] Stop: 09/28/18 18:15 Labetalol HCl (Labetalol Hcl) 10 mg SLOW IVP Q15MIN PRN PRN Reason: SBP > 140 Last Admin: 09/26/18 22:44 Dose: 10 mg Lorazepam (Ativan) 1 mg SLOW IVP Q4H PRN PRN Reason: BREAKTHROUGH SEIZURE Magnesium Oxide (Magnesium Oxide) 250 mg PO DAILY [facility] Last Admin: 09/28/18 09:20 Dose: 250 mg Morphine Sulfate (Morphine) 4 mg SLOW IVP Q1H PRN PRN Reason: SEVERE BREAKTHROUGH PAIN Last Admin: 09/27/18 17:31 Dose: 4 mg Morphine Sulfate (Morphine) 2 mg SLOW IVP Q1H PRN PRN Reason: FOR MOD BREAKTHROUGH PAIN Last Admin: 09/27/18 15:49 Dose: 2 mg Multivitamins (Theragran) 1 tab PO DAILY [facility] Last Admin: 09/28/18 09:21 Dose: 1 tab Ondansetron HCl (Zofran) 4 mg SLOW IVP Q8H PRN PRN Reason: Nausea/Vomiting Last Admin: 09/26/18 21:28 Dose: 4 mg Potassium Chloride (Slow-K 8 Meq) 8 meq PO QAM[facility] Last Admin: 09/28/18 09:20 Dose: 8 meq Promethazine HCl (Phenergan) 12.5 mg IM Q4H PRN PRN Reason: Nausea Promethazine HCl (Phenergan) 12.5 mg PO Q4H PRN PRN Reason: Nausea Promethazine HCl (Phenergan Suppository) 12.5 mg DC Q4H PRN PRN Reason: Nausea Sodium Chloride (Flush - Normal Saline) 10 ml IVF Q12HR [facility] Sodium Chloride (Flush - Normal Saline) 10 ml IVF PRN PRN PRN Reason: Saline Flush
--- NOTE | 2018-09-28 18:29 | CON ---
DATE OF CONSULTATION: Ms. 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 She had a right inferior division MCA infarct postoperatively. She is currently arousable, says her name and is intermittently oriented to place. She has dysarthria and significant left facial droop. 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 Her head CT yesterday repeated this morning is stable. We will continue to work on advancing her diet, although, her level of alertness has impaired her oral intake. We will check labs to ensure no hyponatremia and wean her gradually off Decadron. She has had some witnessed facial twitching that I believe represents focal motor seizures. We will start Keppra. If we cannot control her facial twitching with Keppra, we may need a Neurology consult for further antiepileptics. Discussed the situation at length with her sons. Her was recently hospitalized for his cardiac condition and has a catheterization plan for later today and I went down to his room to visit with him as well. Job ID: [id number]
--- NOTE | 2018-09-28 20:51 | PRG ---
DATE OF SERVICE: 09/28/2018 SUBJECTIVE: Christiana Banks has been having focal motor seizures basically continuously since early this morning. I saw her on the lunch hour. She still had facial twitching. Lungs are clear. Heart, regular rhythm. Abdomen is soft. Vital signs are stable. She was started on Decadron and Keppra today. She is tentatively scheduled, transfer out of the Critical Care Unit, but I am not sure if this is in her best interest given the ongoing focal motor seizure activity. I met with family and answered all their questions. LABORATORY DATA: White count 23.1, hemoglobin 12.5, platelets 173. Sodium 146, potassium 3.6, chloride 113, bicarb 25, BUN 20, creatinine 0.7. 1. Pathology is still pending, status post resection of brain mass in her right frontal region. 2. Frontotemporal thrombotic event on the right with ongoing focal motor seizure activity. PLAN: Continue supportive care. She will probably need a Dobhoff tube as she is not swallowing today as well as she was yesterday. I will defer this to the neurosurgeons. Job ID: [id number] MTDD
[2018-09-29] MEDS: hydrALAZINE 20 MG/ML VIAL SLOW IVP PRN ×3 (00:08→07:21)
[2018-09-29] MEDS: Sodium Chloride 0.9% 1,000 ML IV SCH ×2 (00:11→15:23)
[2018-09-29] MEDS: Dexamethasone 4 mg/ml Vial SLOW IVP SCH ×2 (05:23→09:05)
[2018-09-29] MEDS: Morphine 4 MG/ML VIAL SLOW IVP PRN (05:50)
[2018-09-29] MEDS: Famotidine/PF 20 mg/2ml Vial SLOW IVP SCH ×2 (07:22→20:16)
[2018-09-29] MEDS: Fish Oil 1,000 MG CAP PO SCH (07:29)
[2018-09-29] MEDS: Potassium Chloride 8 MEQ TAB PO SCH (07:29)
[2018-09-29] MEDS: Anastrozole 1 MG TAB PO SCH (07:29)
[2018-09-29] MEDS: Ascorbic Acid 500 mg Chewable Tablet PO SCH (07:29)
[2018-09-29] MEDS: Multivit, Therapeutic 1 TAB PO SCH (07:30)
[2018-09-29] MEDS: Magnesium Oxide 250 MG TAB PO SCH (07:30)
--- NOTE | 2018-09-29 08:57 | PRG ---
DATE OF SERVICE: 09/29/2018 CHART NOTE The patient is a 73-year-old female, status post right-sided craniotomy with right sphenoid wing tumor resection, postoperative day #3. Unfortunately, the patient suffered inferior branch right MCA infarct following the surgery. She overnight has continued to have focal facial seizures, which are persistent. Neurology Team was consulted, which have increased her Keppra dose as well as ordered p.r.n. Ativan. The patient appears more drowsy this morning and has had less over all p.o. intake. The pressure continues to be well controlled and she has not required Cardene drip. Yesterday, her lab work did reveal hypernatremia at 146 and the patient was treated with 500 mL half-normal saline bolus. Her a.m. labs are still pending. This morning on my exam, the patient will tell me her name. She is not oriented to place or time. She will open her eyes just slightly. She is following commands on the right and seen moving the left side spontaneously. She has good right-sided strength. Her speech is very slurred and she has persistent left-sided facial droop with facial twitching throughout that is noted as well. With regard to the persistent focal facial seizures, we will continue to defer to Neurology for management of these. At this time, the patient should remain in the ICU until better control of these seizures. The patient has had decreased p.o. intake and will require replacement of her Dobhoff tube. If this does not improve, she may ultimately require a PEG, but we will continue to monitor at this time. Case Management is also assisting with ultimate need for inpatient rehabilitation. Job ID: [id number]
--- NOTE | 2018-09-29 09:12 | PRG ---
DATE OF SERVICE: 09/29/2018 SUBJECTIVE: Christiana Banks still having focal motor seizures. She is less alert today. She is protecting her airway adequately at this time. OBJECTIVE: VITAL SIGNS: She is afebrile. Blood pressure 164/80, heart rate 96, respiratory rates in the 20s. INTAKE AND OUTPUT: Positive 1600. She took nothing orally yesterday. LUNGS: Clear. HEART: Regular rhythm. ABDOMEN: Soft without guarding. EXTREMITIES: Without asymmetry or significant edema. She has no new labs. Since she remains in the critical care unit, we will continue doing daily lab, and I will probably do daily chest x-rays at least for a few days. We will continue to follow. I met with the son and answered all of his questions. Perhaps, a second seizure drug should be added. Critical care time, 30 minutes. Job ID: [id number]
[2018-09-29 09:17] LABS: Hemoglobin 13.5 g/dL (12.0-16.0); Mean Corpuscular HGB CONC 32.8 g/dL (32.0-36.0); Mean Corpuscular Volume 97.7 fL (78.0-98.0); Mean Platelet Volume 7.8 fL (7.4-10.4); Platelet Count 194 thou/uL (130-400); RBC Distribution Width 12.5 % (11.5-14.5)
[2018-09-29 09:26] LABS: Anion Gap 13 mmol/L (10-20); BUN (Urea Nitrogen) 19 mg/dL (9.8-20.1); Calc. Creatinine Clearance 82 mL/min (70-130); Calcium 8.8 mg/dL (7.8-10.44); Carbon Dioxide 19 mmol/L (23-31); Chloride 115 mmol/L (98-107); Estimated GFR-MDRD Greater than 90; Glucose 134 mg/dL (83-110); Sodium 143 mmol/L (136-145)
[2018-09-29 09:38] LABS: Band 5 % (5-11); Lymphocytes 5 % (21-51); MDiff Complete? YES; Monocytes 8 % (0-10); Neutrophil 82 % (42-75)
--- NOTE | 2018-09-29 10:31 | EEG ---
Referring Physician: Rod LOUISE EEG # [id number] TEST TYPE: ROUTINE PORTABLE INPATIENT REPORT: AN EEG USING THE INTERNATIONAL TEN-TWENTY SYSTEM OF ELECTRODE PLACEMENT WAS PERFORMED. The best waking background is a low amplitude 8 hertz Alpha frequency. There is frequent runs of right hemispheric slowing. There are also episodic phase- reversing transients which occur in clusters and then abruptly discontinue. These occur in the same region. Photic stimulation was unremarkable. IMPRESSION: THERE IS FOCAL SLOWING AND EPILEPTIFORM ACTIVITY SEEN IN THE RIGHT CENTRAL HEMISPHERE. THIS WOULD APPEAR CONSISTENT WITH HER FOCAL SEIZURE ACTIVITY. Pharmacy Operations Specialist: VILLA Contact Worker Lithography: EEG.MSDominique [place]
--- NOTE | 2018-09-29 14:05 | RAD ---
KUB: Indication: Dobbhoff tube placement. FINDINGS: Dobbhoff feeding tube tip is seen within the region of the gastric fundus. Bowel bas pattern is nonob structed. There are surgical clips in the right upper quadrant. Lung bases are clear. IMPRESSION: Dobbhoff tube feeding tip as above. POS: [facility]
--- NOTE | 2018-09-29 14:48 | CT ---
CT BRAIN WITHOUT CONTRAST: HISTORY: Neurologic changes. COMPARISON: CT brain 09/28/2018. FINDINGS: Craniectomy changes are similar. The intraparenchymal hemorrhage is similar. Right frontoparietal a nd temporal hypodensity has become more hypodense. There is a midline shift, binny-[id number], approxim ately 1 cm, similar. No new left-sided abnormality is appreciated. IMPRESSION: Similar examination of the brain. Findings concerning for a superimposed right middle cerebral arter y territory infarction. POS: [facility]
--- NOTE | 2018-09-29 15:34 | PDOC.PN ---
- Subjective Encounter Start Date: 09/29/18 Encounter Start Time: 10:20 Pt seen for followup re: facial twitching. Sleepy, not answering questions, unable to complete ROS. - Objective MAR Reviewed: Yes Vital Signs & Weight: Vital Signs (12 hours) Temp Pulse Pulse Pulse BP BP BP 09/29/18 12:00 97.7 F 09/29/18 09:25 90 74 157/82 H 149/71 H 09/29/18 08:00 98.4 F 09/29/18 07:21 106 H 183/96 H 09/29/18 04:06 92 166/84 H 09/29/18 04:00 97.7 F Pulse Ox Pulse Ox Pulse Ox 09/29/18 12:00 09/29/18 09:25 93 L 95 09/29/18 08:00 93 L 09/29/18 07:21 09/29/18 04:06 09/29/18 04:00 Weight Weight 144 lb Most Recent Monitor Data Heart Rate from ECG 74 NIBP 121/69 NIBP BP-Mean 86 Respiration from ECG 18 SpO2 96 I&O: 09/28/18 09/29/18 09/30/18 06:59 06:59 06:59 Intake Total 2036 2425 0 Output Total 1320 825 450 Balance 716 1600 -450 Result Diagrams: 09/29/18 08:45 09/29/18 08:45 EKG Reviewed by me: Yes (Tele: NSR) Phys Exam - Physical Examination HEENT: moist MMs twitching of left corner of mouth Neck: supple Respiratory: clear to auscultation bilateral Cardiovascular: RRR Gastrointestinal: soft LUE weakness Deviation from normal: Unable to assess Dx/Plan (1) Facial twitching Code(s): G51.4 - FACIAL MYOKYMIA Status: Acute Comment: continue fosphenytoin and keppra (2) H/O malignant neoplasm of breast Code(s): Z85.3 - PERSONAL HISTORY OF MALIGNANT NEOPLASM OF BREAST Status: Chronic Comment: continue anostrazole (3) Hypercalcemia Code(s): E83.52 - HYPERCALCEMIA Status: Resolved - Plan * . Review of Systems - Medications/Allergies Allergies/Adverse Reactions: Allergies Allergy/AdvReac Type Severity Reaction Status Date / Time No Known Allergies Allergy Verified 09/23/18 14:50 Medications: Current Medications Acetaminophen (Tylenol) 650 mg PO Q4H PRN PRN Reason: Headache/Fever or Mild Pain Acetaminophen (Tylenol) 650 mg TN Q4H PRN PRN Reason: Headache/Fever or Pain1-3 Last Admin: 09/28/18 14:04 Dose: 650 mg Hydrocodone Bitart/Acetaminophen ([place] 10/325) 1 tab PO Q4H PRN PRN Reason: Pain 4-6 Hydrocodone Bitart/Acetaminophen ([place] 10/325) 2 tab PO Q4H PRN PRN Reason: Pain 7-10 Al Hydroxide/Mg Hydroxide (Maalox) 30 ml PO Q6H PRN PRN Reason: Heartburn or Indigestion Anastrozole (Arimidex) 1 mg PO QAM [facility] Last Admin: 09/29/18 07:29 Dose: Not Given Ascorbic Acid (Vitamin C) 1,000 mg PO DAILY [facility] Last Admin: 09/29/18 07:29 Dose: Not Given Dexamethasone (Decadron) 2 mg SLOW IVP DAILY [facility] Stop: 09/30/18 09:01 Last Admin: 09/29/18 09:05 Dose: 2 mg Diphenhydramine HCl (Benadryl) 50 mg PO Q6H PRN PRN Reason: Itching & Insomnia Diphenhydramine HCl (Benadryl) 50 mg IVP Q6H PRN PRN Reason: Itching & Insomnia Docusate Sodium (Colace) 100 mg PO BIDPRN PRN PRN Reason: Constipation Famotidine (Pepcid) 20 mg SLOW IVP Q12HR [facility] Last Admin: 09/29/18 07:22 Dose: 20 mg Fish Oil (Fish Oil) 1,000 mg PO DAILY [facility] Last Admin: 09/29/18 07:29 Dose: Not Given Hydralazine HCl (Apresoline) 5 mg SLOW IVP Q15MIN PRN PRN Reason: SBP > 140 Last Admin: 09/29/18 07:21 Dose: 5 mg Sodium Chloride (Normal Saline 0.9%) 1,000 mls @ 75 mls/hr IV .[id number] [facility] Last Admin: 09/29/18 15:23 Dose: 1,000 mls Levetiracetam 500 mg/ Device 100 mls @ 200 mls/hr IVPB BID [facility] Last Admin: 09/29/18 07:22 Dose: 100 mls Fosphenytoin Sodium 300 mg/Miscellaneous Medication 1 each/ Sodium Chloride 106 mls @ 212 mls/hr IVPB Q24HR [facility] Labetalol HCl (Labetalol Hcl) 10 mg SLOW IVP Q15MIN PRN PRN Reason: SBP > 140 Last Admin: 09/26/18 22:44 Dose: 10 mg Lorazepam (Ativan) 1 mg SLOW IVP Q4H PRN PRN Reason: BREAKTHROUGH SEIZURE Last Admin: 09/28/18 21:46 Dose: 1 mg Magnesium Oxide (Magnesium Oxide) 250 mg PO DAILY [facility] Last Admin: 09/29/18 07:30 Dose: Not Given Morphine Sulfate (Morphine) 4 mg SLOW IVP Q1H PRN PRN Reason: SEVERE BREAKTHROUGH PAIN Last Admin: 09/27/18 17:31 Dose: 4 mg Morphine Sulfate (Morphine) 2 mg SLOW IVP Q1H PRN PRN Reason: FOR MOD BREAKTHROUGH PAIN Last Admin: 09/29/18 05:50 Dose: 2 mg Multivitamins (Theragran) 1 tab PO DAILY [facility] Last Admin: 09/29/18 07:30 Dose: Not Given Ondansetron HCl (Zofran) 4 mg SLOW IVP Q8H PRN PRN Reason: Nausea/Vomiting Last Admin: 09/26/18 21:28 Dose: 4 mg Potassium Chloride (Slow-K 8 Meq) 8 meq PO QAM-[facility] Last Admin: 09/29/18 07:29 Dose: Not Given Promethazine HCl (Phenergan) 12.5 mg IM Q4H PRN PRN Reason: Nausea Promethazine HCl (Phenergan) 12.5 mg PO Q4H PRN PRN Reason: Nausea Promethazine HCl (Phenergan Suppository) 12.5 mg TN Q4H PRN PRN Reason: Nausea Sodium Chloride (Flush - Normal Saline) 10 ml IVF Q12HR [facility] Last Admin: 09/29/18 07:30 Dose: Not Given Sodium Chloride (Flush - Normal Saline) 10 ml IVF PRN PRN PRN Reason: Saline Flush
--- NOTE | 2018-09-29 18:06 | CON ---
DATE OF CONSULTATION: 09/29/2018 CONSULTING PHYSICIAN: Dr. Abad. IMPRESSION: 1. Focal status epilepticus. 2. Recent meningioma resection from the right hemisphere resulting in some secondary cerebral edema. PLAN: 1. Continue Dilantin and Keppra at this point. 2. Blood levels. 3. Versed 2 mg IV now. HISTORY OF PRESENT ILLNESS: Ms. Banks is a 73-year-old woman, who was brought in for surgical management of a large right hemispheric meningioma that was resected a few days ago. Intraoperatively, it was noted that the meningioma had some impact on the internal carotid artery, which necessitated leaving some of the tissue behind. Postoperatively, her scan showed continued evidence of cerebral edema and midline shift. She is on Decadron protocol, which is being weaned. She developed focal twitching in the left side of the face. EEG revealed focal periodic discharges in the right central head region. The remaining cerebral activity was relatively good. She has become a bit more lethargic compared to initial postoperative time. Nurses noted some limited mobility of the left arm, which they thought was a bit worse today. She continued to have the facial twitching throughout the day, albeit the family thought that it was a little bit less intense. PAST MEDICAL HISTORY: Otherwise negative. ALLERGIES: NONE REPORTED. SOCIAL HISTORY: No tobacco or drug use. FAMILY HISTORY: Noncontributory. REVIEW OF SYSTEMS: Not obtainable due to the patient's current state. PHYSICAL EXAMINATION: VITAL SIGNS: Blood pressure 144/65, pulse 70, respirations 21, saturations 96% on nasal cannula. HEENT: Pupils are equal and reactive. Conjunctivae are clear. She has right gaze preference. NECK: Supple. EXTREMITIES: No cyanosis or edema. NEUROLOGIC: She keeps her eyes closed, but was responsive to commands. She would open her eyes to command, but did so briefly. There was fairly constant, irregular left facial twitching involving the corner of the mouth. 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 Gait is not testable. No lower extremity movement abnormalities were noted. LABORATORY DATA: EKG shows sinus rhythm. 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 Hopefully, the edema will subside with a bit of time. We will see if there is any leeway to make adjustments in her current doses of medication. Dr. Stevenson will be covering for me this weekend to manage her care. Job ID: [id number]
[2018-09-30] MEDS: hydrALAZINE 20 MG/ML VIAL SLOW IVP PRN ×4 (05:31→23:16)
[2018-09-30] MEDS: Sodium Chloride 0.9% 1,000 ML IV SCH ×3 (05:37→21:11)
[2018-09-30 05:48] LABS: Band 4 % (5-11); Lymphocytes 13 % (21-51); MDiff Complete? YES; Mean Corpuscular HGB CONC 31.2 g/dL (32.0-36.0); Mean Corpuscular Hemoglobin 31.4 pg (27.0-31.0); Mean Platelet Volume 8.2 fL (7.4-10.4); Monocytes 5 % (0-10); Neutrophil 78 % (42-75); Platelet Count 203 thou/uL (130-400); Platelet Morphology Comment Appears Adequate; RBC Distribution Width 12.6 % (11.5-14.5); Red Blood Cell (RBC) Count 4.15 mill/uL (4.20-5.40); White Blood Cell (WBC) Count 16.3 thou/uL (4.8-10.8)
[2018-09-30 06:09] LABS: Anion Gap 12 mmol/L (10-20); BUN (Urea Nitrogen) 25 mg/dL (9.8-20.1); Calc. Creatinine Clearance 82 mL/min (70-130); Calcium 8.8 mg/dL (7.8-10.44); Carbon Dioxide 21 mmol/L (23-31); Chloride 116 mmol/L (98-107); Estimated GFR-MDRD Greater than 90; Glucose 119 mg/dL (83-110); Potassium 3.7 mmol/L (3.5-5.1); Sodium 145 mmol/L (136-145)
[2018-09-30] MEDS: Multivit, Therapeutic 1 TAB PO SCH (08:19)
[2018-09-30] MEDS: Fish Oil 1,000 MG CAP PO SCH (08:19)
[2018-09-30] MEDS: Dexamethasone 4 mg/ml Vial SLOW IVP SCH (08:19)
[2018-09-30] MEDS: Famotidine/PF 20 mg/2ml Vial SLOW IVP SCH ×2 (08:19→21:13)
[2018-09-30] MEDS: Ascorbic Acid 500 mg Chewable Tablet PO SCH (08:19)
[2018-09-30] MEDS: Potassium Chloride 8 MEQ TAB PO SCH (08:20)
--- NOTE | 2018-09-30 08:20 | RAD ---
AP VIEW CHEST: HISTORY: Dobbhoff tube placement. FINDINGS: AP view chest was obtained on 09/30/2018. A view chest demonstrates a Dobbhoff tube in place, distal tip not visualized. Moderate pulmonary va scular congestion is seen. No evidence of effusion seen. No other acute intrathoracic abnormality i s seen. IMPRESSION: Pulmonary vascular congestion. POS: [facility]
[2018-09-30] MEDS: Anastrozole 1 MG TAB PO SCH (08:21)
[2018-09-30] MEDS: Magnesium Oxide 250 MG TAB PO SCH (08:22)
[2018-09-30 08:30] LABS: Actual Bicarbonate (HCO3a) 24.5 mEq/L (22-28); Base Excess (BEa) 2.6 mEq/L (-2.0 to +3.0); Calcium, Ionized 1.19 mmol/L (1.12-1.30); Carboxyhemoglobin (COHb) 1.3 gm% (0.0-3.0); Hemoglobin (Hb) 13.6 g/dL (12.0-16.0); O2 Tension (PaO2) 69.1 mmHg (> 70.0); Potassium - ABG Lab 3.43 mmol/L (3.70-5.30); Puncture Site RRA; pH, Arterial 7.53 (7.35-7.45)
[2018-09-30] MEDS: levETIRAcetam In NaCl (Iso-Os) 1,500 MG in Premix Bag 1 BAG IVPB SCH ×2 (09:08→21:13)
[2018-09-30] MEDS: ADMIXTURE FEE IVPB SCH (09:12)
[2018-09-30] MEDS: SODIUM CHLORIDE IVPB SCH (09:12)
[2018-09-30] MEDS: FOSPHENYTOIN SODIUM IVPB SCH (09:12)
--- NOTE | 2018-09-30 10:14 | PRG ---
DATE OF SERVICE: 09/30/2018 SUBJECTIVE: Christiana Banks each day is little less arousable. She is mildly hypertensive 175/78, heart rate in the 90s, respiratory rates in the 20s. She is adequately protecting her airway at this time. OBJECTIVE: LUNGS: Clear. HEART: Regular rhythm. ABDOMEN: Soft. No guarding. EXTREMITIES: Without asymmetry. LABORATORY DATA: White count 16.3, hemoglobin 13, platelets 203. Sodium 145, potassium 3.7, chloride 116, bicarb 21, BUN 25, creatinine 0.6. IMPRESSION: 1. Status post resection of a meningioma. 2. Swallowing dysfunction with a Dobbhoff in place. 3. Perioperative right middle cerebral artery thrombotic cerebrovascular accident. 4. Focal motor status epilepticus. Her declining mental status has been blamed on her anti seizure medications, but also could be related to that combined with her thrombotic CVA and her recent brain surgery. She may end up with needing intubation and airway protection. At this point in time, blood gas shows 7.53 pH, CO2 of 30, and PO2 of 69 on room air. We will continue to follow in the Critical Care Unit. CRITICAL CARE TIME: 30 minutes. Job ID: [id number]
--- NOTE | 2018-09-30 19:06 | PDOC.PN ---
- Subjective Encounter Start Date: 09/30/18 Encounter Start Time: 19:04 (late entry) Subjective: seen and examined.sitting up in neuro chair -: minimally responsive.doesnot follow commands or opens eyes - Objective MAR Reviewed: Yes Vital Signs & Weight: Vital Signs (12 hours) Temp Pulse BP Pulse Ox 09/30/18 17:00 98.3 F 09/30/18 16:11 93 175/78 H 09/30/18 12:00 98.1 F 09/30/18 08:05 93 175/78 H 09/30/18 08:00 98.3 F 95 Weight Admit Weight 144 lb Weight 144 lb Most Recent Monitor Data Heart Rate from ECG 84 NIBP 150/86 NIBP BP-Mean 107 Respiration from ECG 19 SpO2 96 I&O: 09/29/18 09/30/18 10/01/18 06:59 06:59 06:59 Intake Total 2425 1446 1431 Output Total 825 1345 1050 Balance 1600 101 381 Result Diagrams: 09/30/18 04:32 09/30/18 04:32 Phys Exam - Physical Examination Constitutional: NAD (up,delirious looking) post -op left cranium.eyelids swollon Neck: no JVD Respiratory: no wheezing, no rales coarse Cardiovascular: RRR, no significant murmur Gastrointestinal: soft, no distention Musculoskeletal: no edema difficult to assess d/t delirium Dx/Plan (1) focal status epilepticus Status: Acute (2) Acute CVA (cerebrovascular accident) Code(s): I63.9 - CEREBRAL INFARCTION, UNSPECIFIED Status: Acute (3) S/P resection of meningioma Code(s): Z98.890 - OTHER SPECIFIED POSTPROCEDURAL STATES; Z86.018 - PERSONAL HISTORY OF OTHER BENIGN NEOPLASM Status: Acute (4) H/O malignant neoplasm of breast Code(s): Z85.3 - PERSONAL HISTORY OF MALIGNANT NEOPLASM OF BREAST Status: Chronic Comment: continue anostrazole - Plan DVT proph w/SCDs cont antiepileptics.high risk for aspiration & complication d/t CVA -: post op care per Primary team -: Neuro on board. -: am labs. meds as below.reviewed * . Review of Systems - Review of Systems Constitutional: fever Other: can not be obtained due to encephalopathy - Medications/Allergies Allergies/Adverse Reactions: Allergies Allergy/AdvReac Type Severity Reaction Status Date / Time No Known Allergies Allergy Verified 09/23/18 14:50 Medications: Current Medications Acetaminophen (Tylenol) 650 mg PO Q4H PRN PRN Reason: Headache/Fever or Mild Pain Acetaminophen (Tylenol) 650 mg ND Q4H PRN PRN Reason: Headache/Fever or Pain1-3 Last Admin: 09/28/18 14:04 Dose: 650 mg Hydrocodone Bitart/Acetaminophen ([place] 10/325) 1 tab PO Q4H PRN PRN Reason: Pain 4-6 Hydrocodone Bitart/Acetaminophen ([place] 10/325) 2 tab PO Q4H PRN PRN Reason: Pain 7-10 Al Hydroxide/Mg Hydroxide (Maalox) 30 ml PO Q6H PRN PRN Reason: Heartburn or Indigestion Anastrozole (Arimidex) 1 mg PO QAM [facility] Last Admin: 09/30/18 08:21 Dose: 1 mg Ascorbic Acid (Vitamin C) 1,000 mg PO DAILY [facility] Last Admin: 09/30/18 08:19 Dose: 1,000 mg Diphenhydramine HCl (Benadryl) 50 mg PO Q6H PRN PRN Reason: Itching & Insomnia Diphenhydramine HCl (Benadryl) 50 mg IVP Q6H PRN PRN Reason: Itching & Insomnia Docusate Sodium (Colace) 100 mg PO BIDPRN PRN PRN Reason: Constipation Famotidine (Pepcid) 20 mg SLOW IVP Q12HR [facility] Last Admin: 09/30/18 08:19 Dose: 20 mg Fish Oil (Fish Oil) 1,000 mg PO DAILY [facility] Last Admin: 09/30/18 08:19 Dose: 1,000 mg Hydralazine HCl (Apresoline) 5 mg SLOW IVP Q15MIN PRN PRN Reason: SBP > 140 Last Admin: 09/30/18 16:11 Dose: 5 mg Sodium Chloride (Normal Saline 0.9%) 1,000 mls @ 75 mls/hr IV .[id number] [facility] Last Admin: 09/30/18 08:22 Dose: 1,000 mls Fosphenytoin Sodium 300 mg/Miscellaneous Medication 1 each/ Sodium Chloride 106 mls @ 212 mls/hr IVPB Q24HR [facility] Last Admin: 09/30/18 09:12 Dose: 106 mls Levetiracetam 1,500 mg/ Device 100 mls @ 200 mls/hr IVPB BID [facility] Last Admin: 09/30/18 09:08 Dose: 100 mls Labetalol HCl (Labetalol Hcl) 10 mg SLOW IVP Q15MIN PRN PRN Reason: SBP > 140 Last Admin: 09/26/18 22:44 Dose: 10 mg Lorazepam (Ativan) 1 mg SLOW IVP Q4H PRN PRN Reason: BREAKTHROUGH SEIZURE Last Admin: 09/28/18 21:46 Dose: 1 mg Magnesium Oxide (Magnesium Oxide) 250 mg PO DAILY [facility] Last Admin: 09/30/18 08:22 Dose: 250 mg Morphine Sulfate (Morphine) 4 mg SLOW IVP Q1H PRN PRN Reason: SEVERE BREAKTHROUGH PAIN Last Admin: 09/27/18 17:31 Dose: 4 mg Morphine Sulfate (Morphine) 2 mg SLOW IVP Q1H PRN PRN Reason: FOR MOD BREAKTHROUGH PAIN Last Admin: 09/29/18 05:50 Dose: 2 mg Multivitamins (Theragran) 1 tab PO DAILY [facility] Last Admin: 09/30/18 08:19 Dose: 1 tab Ondansetron HCl (Zofran) 4 mg SLOW IVP Q8H PRN PRN Reason: Nausea/Vomiting Last Admin: 09/26/18 21:28 Dose: 4 mg Potassium Chloride (Slow-K 8 Meq) 8 meq PO QAM-WM [facility] Last Admin: 09/30/18 08:20 Dose: 8 meq Promethazine HCl (Phenergan) 12.5 mg IM Q4H PRN PRN Reason: Nausea Promethazine HCl (Phenergan) 12.5 mg PO Q4H PRN PRN Reason: Nausea Promethazine HCl (Phenergan Suppository) 12.5 mg ND Q4H PRN PRN Reason: Nausea Sodium Chloride (Flush - Normal Saline) 10 ml IVF Q12HR [facility] Last Admin: 09/30/18 08:21 Dose: 10 ml Sodium Chloride (Flush - Normal Saline) 10 ml IVF PRN PRN PRN Reason: Saline Flush
[2018-10-01] MEDS: hydrALAZINE 20 MG/ML VIAL SLOW IVP PRN ×6 (02:40→16:15)
[2018-10-01 06:12] LABS: Anion Gap 12 mmol/L (10-20); BUN (Urea Nitrogen) 15 mg/dL (9.8-20.1); Calc. Creatinine Clearance 92 mL/min (70-130); Calcium 9.1 mg/dL (7.8-10.44); Carbon Dioxide 21 mmol/L (23-31); Chloride 111 mmol/L (98-107); Estimated GFR-MDRD Greater than 90; Glucose 141 mg/dL (83-110); Potassium 3.5 mmol/L (3.5-5.1); Sodium 140 mmol/L (136-145)
[2018-10-01 06:19] LABS: Band 1 % (5-11); Lymphocytes 10 % (21-51); MDiff Complete? YES; Mean Corpuscular HGB CONC 32.1 g/dL (32.0-36.0); Mean Corpuscular Volume 99.8 fL (78.0-98.0); Mean Platelet Volume 7.8 fL (7.4-10.4); Monocytes 7 % (0-10); Neutrophil 82 % (42-75); Platelet Count 192 thou/uL (130-400); Platelet Morphology Comment Appears Adequate; RBC Distribution Width 12.5 % (11.5-14.5); RBC Morphology Normal; Red Blood Cell (RBC) Count 4.04 mill/uL (4.20-5.40); White Blood Cell (WBC) Count 12.6 thou/uL (4.8-10.8)
[2018-10-01] MEDS ORDERED: HumaLOG 300 UNITS/3 ML VIAL SC PRN (06:47)
[2018-10-01] MEDS: Ascorbic Acid 500 mg Chewable Tablet PO SCH (07:55)
[2018-10-01] MEDS: Multivit, Therapeutic 1 TAB PO SCH (07:55)
[2018-10-01] MEDS: Fish Oil 1,000 MG CAP PO SCH (07:56)
[2018-10-01] MEDS: Anastrozole 1 MG TAB PO SCH (07:56)
[2018-10-01] MEDS: Potassium Chloride 8 MEQ TAB PO SCH (07:56)
[2018-10-01] MEDS: Magnesium Oxide 250 MG TAB PO SCH (07:56)
[2018-10-01] MEDS: Famotidine/PF 20 mg/2ml Vial SLOW IVP SCH ×2 (07:57→21:55)
[2018-10-01] MEDS: levETIRAcetam In NaCl (Iso-Os) 1,500 MG in Premix Bag 1 BAG IVPB SCH ×2 (08:05→21:54)
--- NOTE | 2018-10-01 08:36 | PRG ---
DATE OF SERVICE: 10/01/2018 Ms. 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 She also suffered postoperative MCA branch infarct, which has left her somewhat less responsive at this time with left-sided weakness. I am seeing her this morning at bedside. She does arouse, attempts to open her eyes, is unable to do so. She still has the nasogastric tube in to wall suction. She has been receiving nutrition via this tube. She does follow command very well in all 4 extremities and has great strength in the right upper and right lower extremities. She gives me full range of motion when I asked to do so on the left upper and left lower extremity. She is able to sleep and she is able to plantar flex the ankle and slightly bend the knee, but there is considerable weakness when compared to the right side. Grading these, I would say 5/5 in the right upper and right lower extremity and then 4-/5 in the left upper and left lower extremity. Scalp wound scalp is well approximated. There is no drainage or areas of dehiscence. There is no erythema. She denies any additional complaints at this time. She is communicative with her son at bedside as well. Plan will be to continue to follow along to see how she is improving. seems to have subsided since yesterday afternoon ever since the Keppra was adjusted by Dr. Paez. Neurosurgery will continue to evaluate her progress and anticipate disposition to inpatient rehab when appropriate. Job ID: [id number]
[2018-10-01] MEDS: SODIUM CHLORIDE IVPB SCH (08:42)
[2018-10-01] MEDS: ADMIXTURE FEE IVPB SCH (08:42)
[2018-10-01] MEDS: FOSPHENYTOIN SODIUM IVPB SCH (08:42)
--- NOTE | 2018-10-01 10:07 | PRG ---
DATE OF SERVICE: 10/01/2018 SUBJECTIVE: This morning, the patient opens her eyes, slight verbal communication. OBJECTIVE: VITAL SIGNS: Pulse is 91, blood pressure 140/84, saturations 98% on room air, respiratory rate 20. CHEST: Bilateral rhonchi anteriorly. CARDIAC: Normal S1 and S2. No gallops. ABDOMEN: Soft without any masses. LABORATORY DATA: White count 13,000, hemoglobin and hematocrit of 13 and 40, platelet count is normal. Lytes are normal. DIAGNOSTIC DATA: X-ray shows a right-sided infiltrate. IMPRESSION: 1. Status post craniotomy. 2. Difficulty handling secretions. 3. Right lower lobe pneumonia. 4. Start the EzPAP. Otherwise, continue supportive care, nutrition, PT. We will follow. Job ID: [id number]
--- NOTE | 2018-10-01 10:14 | RAD ---
RADIOGRAPH CHEST 1 VIEW: Date: 10/01/2018. Time: 4:01 a.m. HISTORY: A 73-year-old female with respiratory distress. COMPARISON: 09/30/2018, 4:54 a.m. FINDINGS: Dobbhoff feeding tube is again noted. No cardiomegaly. The left lung was diffusely mildly hazy on t he prior study. Perhaps that was due to patient rotation to the right. Now, with the patient positi oning more optimal, the left lung appears to be clear. No cardiomegaly. Mild, ill-defined pulmonary densities at the right lower lung zone remain. No pneumothorax. IMPRESSION: 1. Mild infiltrate-like density at the right lower lung zone. 2. No congestive heart failure. 3. Dobbhoff feeding tube. YANET [] POS: [facility]
--- NOTE | 2018-10-01 11:05 | PRG ---
DATE OF SERVICE: 10/01/2018 Ms. Banks is 5 days status post craniotomy with tumor resection. She did sustain an MCA level stroke on the right side. Today, she is in the ICU, somnolent. She does awaken to voice and does answer my questions. She did have agitation last night. She does move the left arm. She moves the right arm to me to command. She has not had any focal seizures for approximately [address] Benoit believes she may be developing pneumonia, and we will consider restarting the antibiotics as warranted. For now, we will keep her in the ICU. Job ID: [id number]
[2018-10-01] MEDS: Sodium Chloride 0.9% 1,000 ML IV SCH (14:05)
--- NOTE | 2018-10-01 14:37 | PDOC.PN ---
- Subjective Encounter Start Date: 10/01/18 Encounter Start Time: 10:00 Pt seen for followup re: seizure. Pt keeping eyes closed but nodding or shaking head to answer questions. Denies pain. Denies nausea or vomiting. Denies fevers or chills. - Objective MAR Reviewed: Yes Vital Signs & Weight: Vital Signs (12 hours) Temp Pulse Resp BP Pulse Ox 10/01/18 12:27 91 10/01/18 12:17 91 19 10/01/18 12:00 98.9 F 10/01/18 08:03 99 178/80 H 10/01/18 08:00 98.7 F 92 L 10/01/18 02:40 99 178/80 H Weight Admit Weight 144 lb Weight 144 lb Most Recent Monitor Data Heart Rate from ECG 82 NIBP 154/73 NIBP BP-Mean 100 Respiration from ECG 18 SpO2 96 I&O: 09/30/18 10/01/18 10/02/18 06:59 06:59 07:59 Intake Total 1446 2768 120 Output Total 1345 1900 300 Balance 101 868 -180 Result Diagrams: 10/01/18 05:01 10/01/18 05:01 Additional Labs: Accuchecks 10/01/18 12:04 POC Glucose 156 H EKG Reviewed by me: Yes (Tele: NSR) Phys Exam - Physical Examination Constitutional: NAD HEENT: moist MMs Neck: supple Respiratory: clear to auscultation bilateral Cardiovascular: RRR Gastrointestinal: soft Neurological: moves all 4 limbs Deviation from normal: Unable to assess Dx/Plan (1) Seizures Code(s): R56.9 - UNSPECIFIED CONVULSIONS Status: Acute Comment: on fosphenytoin and keppra (2) H/O malignant neoplasm of breast Code(s): Z85.3 - PERSONAL HISTORY OF MALIGNANT NEOPLASM OF BREAST Status: Chronic Comment: on anostrazole - Plan * . Review of Systems - Medications/Allergies Allergies/Adverse Reactions: Allergies Allergy/AdvReac Type Severity Reaction Status Date / Time No Known Allergies Allergy Verified 09/23/18 14:50 Medications: Current Medications Acetaminophen (Tylenol) 650 mg PO Q4H PRN PRN Reason: Headache/Fever or Mild Pain Acetaminophen (Tylenol) 650 mg [place] Q4H PRN PRN Reason: Headache/Fever or Pain1-3 Last Admin: 09/28/18 14:04 Dose: 650 mg Hydrocodone Bitart/Acetaminophen ([place] 10/325) 1 tab PO Q4H PRN PRN Reason: Pain 4-6 Hydrocodone Bitart/Acetaminophen ([place] 10/325) 2 tab PO Q4H PRN PRN Reason: Pain 7-10 Al Hydroxide/Mg Hydroxide (Maalox) 30 ml PO Q6H PRN PRN Reason: Heartburn or Indigestion Albuterol/Ipratropium (Duoneb) 3 ml EZPAP BID-RT [facility] Last Admin: 10/01/18 12:17 Dose: 3 ml Anastrozole (Arimidex) 1 mg PO QAM [facility] Last Admin: 10/01/18 07:56 Dose: 1 mg Ascorbic Acid (Vitamin C) 1,000 mg PO DAILY [facility] Last Admin: 10/01/18 07:55 Dose: 1,000 mg Diphenhydramine HCl (Benadryl) 50 mg PO Q6H PRN PRN Reason: Itching & Insomnia Diphenhydramine HCl (Benadryl) 50 mg IVP Q6H PRN PRN Reason: Itching & Insomnia Docusate Sodium (Colace) 100 mg PO BIDPRN PRN PRN Reason: Constipation Famotidine (Pepcid) 20 mg SLOW IVP Q12HR [facility] Last Admin: 10/01/18 07:57 Dose: 20 mg Fish Oil (Fish Oil) 1,000 mg PO DAILY [facility] Last Admin: 10/01/18 07:56 Dose: 1,000 mg Hydralazine HCl (Apresoline) 5 mg SLOW IVP Q15MIN PRN PRN Reason: SBP > 140 Last Admin: 10/01/18 12:27 Dose: 5 mg Sodium Chloride (Normal Saline 0.9%) 1,000 mls @ 75 mls/hr IV .[id number] [facility] Last Admin: 10/01/18 14:05 Dose: 1,000 mls Fosphenytoin Sodium 300 mg/Miscellaneous Medication 1 each/ Sodium Chloride 106 mls @ 212 mls/hr IVPB Q24HR [facility] Last Admin: 10/01/18 08:42 Dose: 106 mls Levetiracetam 1,500 mg/ Device 100 mls @ 200 mls/hr IVPB BID [facility] Last Admin: 10/01/18 08:05 Dose: 100 mls Insulin Human Lispro (Humalog) 0 units SC .MILD SLIDING SCALE PRN PRN Reason: Mild Correctional Scale Labetalol HCl (Labetalol Hcl) 10 mg SLOW IVP Q15MIN PRN PRN Reason: SBP > 140 Last Admin: 09/26/18 22:44 Dose: 10 mg Lorazepam (Ativan) 1 mg SLOW IVP Q4H PRN PRN Reason: BREAKTHROUGH SEIZURE Last Admin: 09/28/18 21:46 Dose: 1 mg Magnesium Oxide (Magnesium Oxide) 250 mg PO DAILY [facility] Last Admin: 10/01/18 07:56 Dose: 250 mg Morphine Sulfate (Morphine) 4 mg SLOW IVP Q1H PRN PRN Reason: SEVERE BREAKTHROUGH PAIN Last Admin: 09/27/18 17:31 Dose: 4 mg Morphine Sulfate (Morphine) 2 mg SLOW IVP Q1H PRN PRN Reason: FOR MOD BREAKTHROUGH PAIN Last Admin: 09/29/18 05:50 Dose: 2 mg Multivitamins (Theragran) 1 tab PO DAILY [facility] Last Admin: 10/01/18 07:55 Dose: 1 tab Ondansetron HCl (Zofran) 4 mg SLOW IVP Q8H PRN PRN Reason: Nausea/Vomiting Last Admin: 09/26/18 21:28 Dose: 4 mg Potassium Chloride (Slow-K 8 Meq) 8 meq PO QAM-WM [facility] Last Admin: 10/01/18 07:56 Dose: 8 meq Promethazine HCl (Phenergan) 12.5 mg IM Q4H PRN PRN Reason: Nausea Promethazine HCl (Phenergan) 12.5 mg PO Q4H PRN PRN Reason: Nausea Promethazine HCl (Phenergan Suppository) 12.5 mg DE Q4H PRN PRN Reason: Nausea Sodium Chloride (Flush - Normal Saline) 10 ml IVF Q12HR [facility] Last Admin: 10/01/18 07:57 Dose: 10 ml Sodium Chloride (Flush - Normal Saline) 10 ml IVF PRN PRN PRN Reason: Saline Flush
[2018-10-02] MEDS: Sodium Chloride 0.9% 1,000 ML IV SCH ×2 (04:34→20:14)
[2018-10-02 05:35] LABS: Band 5 % (5-11); Eosinophils 4 % (0-10); Hemoglobin 12.4 g/dL (12.0-16.0); Lymphocytes 21 % (21-51); MDiff Complete? YES; Mean Corpuscular HGB CONC 30.2 g/dL (32.0-36.0); Mean Corpuscular Hemoglobin 29.8 pg (27.0-31.0); Mean Platelet Volume 7.7 fL (7.4-10.4); Metamyelocyte 1 % (0-0); Monocytes 6 % (0-10); Neutrophil 62 % (42-75); Platelet Count 198 thou/uL (130-400); Platelet Morphology Comment Appears Adequate; RBC Distribution Width 12.5 % (11.5-14.5); RBC Morphology Normal; Reactive Lymphocytes 1 % (0-10); Red Blood Cell (RBC) Count 4.14 mill/uL (4.20-5.40); White Blood Cell (WBC) Count 7.9 thou/uL (4.8-10.8)
[2018-10-02 05:52] LABS: Anion Gap 12 mmol/L (10-20); BUN (Urea Nitrogen) 15 mg/dL (9.8-20.1); Calc. Creatinine Clearance 88 mL/min (70-130); Calcium 8.9 mg/dL (7.8-10.44); Carbon Dioxide 24 mmol/L (23-31); Chloride 110 mmol/L (98-107); Estimated GFR-MDRD Greater than 90; Glucose 130 mg/dL (83-110); Potassium 3.8 mmol/L (3.5-5.1); Sodium 142 mmol/L (136-145)
--- NOTE | 2018-10-02 07:44 | PRG ---
DATE OF SERVICE: Ms. Banks this morning is a little more interactive. She moves quite a bit and adjusted herself in the bed. Apparently yesterday, she was very talkative and she still does not open her eyes for me this morning, but did open her eyes for the nursing staff a couple times yesterday afternoon. She spent roughly 4 hours in the yesterday which again signals continued progress. I will discuss with Dr. Garcia the possibility of moving the patient to floor. We will also check and see if the son's request via speech therapy will be by to perform a 2nd swallow study to see if they might be able to remove the Dobbhoff tube this is the source of discomfort for the patient. Otherwise, we will continue to follow. Job ID: [id number]
[2018-10-02] MEDS: Famotidine/PF 20 mg/2ml Vial SLOW IVP SCH ×2 (08:44→20:13)
[2018-10-02] MEDS: Fish Oil 1,000 MG CAP PO SCH (08:44)
[2018-10-02] MEDS: Ascorbic Acid 500 mg Chewable Tablet PO SCH (08:44)
[2018-10-02] MEDS: Multivit, Therapeutic 1 TAB PO SCH (08:44)
[2018-10-02] MEDS: Potassium Chloride 8 MEQ TAB PO SCH (08:44)
[2018-10-02] MEDS: levETIRAcetam In NaCl (Iso-Os) 1,500 MG in Premix Bag 1 BAG IVPB SCH ×2 (08:45→20:14)
[2018-10-02] MEDS: Magnesium Oxide 250 MG TAB PO SCH (08:45)
[2018-10-02] MEDS: Anastrozole 1 MG TAB PO SCH (08:52)
[2018-10-02] MEDS: ADMIXTURE FEE IVPB SCH (08:53)
[2018-10-02] MEDS: FOSPHENYTOIN SODIUM IVPB SCH (08:53)
[2018-10-02] MEDS: SODIUM CHLORIDE IVPB SCH (08:53)
--- NOTE | 2018-10-02 09:37 | RAD ---
SINGLE VIEW OF THE CHEST: COMPARISON: 10/01/2018. HISTORY: Ventilated patient with respiratory failure. FINDINGS: A single view of the chest shows a normal-size cardiomediastinal silhouette. A Dobbhoff tube is visu alized. There is no evidence of consolidation, mass, or pleural effusion. Increased interstitial ma rkings are present. IMPRESSION: No evidence of acute cardiopulmonary disease. POS: [facility]
--- NOTE | 2018-10-02 10:34 | PRG ---
DATE OF SERVICE: 10/02/2018 SUBJECTIVE: This morning, she looks better, less short of breath, less cough. OBJECTIVE: VITAL SIGNS: Blood pressure 152/76, pulse 79, respiratory rate 18, temperature 98. CHEST: Minimal rhonchi. CARDIAC: Normal S1, S2. No gallops or masses. LABORATORY DATA: Lytes are normal. White count 7000. IMPRESSION: Status post craniotomy, cerebrovascular accident, pneumonia, weakness. PLAN: Continue EzPAP, neb treatment, supportive care, PT. Avoid antibiotics until she notes any fever. We will follow. Job ID: [id number]
--- NOTE | 2018-10-02 14:11 | PDOC.PN ---
- Subjective Encounter Start Date: 10/02/18 Encounter Start Time: 11:00 Pt seen for followup re: seizure. No recurrence. feels better. - Objective Vital Signs & Weight: Vital Signs (12 hours) Temp Pulse Resp Pulse Ox 10/02/18 12:00 98 F 10/02/18 08:15 68 16 10/02/18 07:18 93 L 10/02/18 04:00 98.5 F Weight Admit Weight 144 lb Weight 143 lb 15.39 oz Most Recent Monitor Data Heart Rate from ECG 78 NIBP 174/70 NIBP BP-Mean 104 Respiration from ECG 17 SpO2 96 I&O: 10/01/18 10/02/18 10/03/18 05:59 06:59 06:59 Intake Total 60 Output Total 600 Balance -540 Result Diagrams: 10/02/18 04:47 10/02/18 04:47 Additional Labs: Accuchecks 10/02/18 10/01/18 10/01/18 04:37 22:28 18:14 POC Glucose 120 H 121 H 122 H Phys Exam - Physical Examination Constitutional: NAD HEENT: moist MMs Neck: supple Respiratory: clear to auscultation bilateral Cardiovascular: RRR Gastrointestinal: soft LUE weakness Psychiatric: normal affect Dx/Plan (1) Seizures Code(s): R56.9 - UNSPECIFIED CONVULSIONS Status: Acute Comment: on fosphenytoin and keppra, no recurrence (2) H/O malignant neoplasm of breast Code(s): Z85.3 - PERSONAL HISTORY OF MALIGNANT NEOPLASM OF BREAST Status: Chronic Comment: continue anostrazole - Plan * . Review of Systems - Review of Systems Cardiovascular: negative: chest pain, palpitations, orthopnea, paroxysmal nocturnal dyspnea, edema, light headedness Gastrointestinal: negative: Nausea, Vomiting, Abdominal Pain, Diarrhea, Constipation, Melena, Hematochezia Neurological: negative: Seizures - Medications/Allergies Allergies/Adverse Reactions: Allergies Allergy/AdvReac Type Severity Reaction Status Date / Time No Known Allergies Allergy Verified 09/23/18 14:50 Medications: Current Medications Acetaminophen (Tylenol) 650 mg PO Q4H PRN PRN Reason: Headache/Fever or Mild Pain Acetaminophen (Tylenol) 650 mg [place] Q4H PRN PRN Reason: Headache/Fever or Pain1-3 Last Admin: 09/28/18 14:04 Dose: 650 mg Hydrocodone Bitart/Acetaminophen ([place] 10/325) 1 tab PO Q4H PRN PRN Reason: Pain 4-6 Hydrocodone Bitart/Acetaminophen ([place] 10/325) 2 tab PO Q4H PRN PRN Reason: Pain 7-10 Al Hydroxide/Mg Hydroxide (Maalox) 30 ml PO Q6H PRN PRN Reason: Heartburn or Indigestion Albuterol/Ipratropium (Duoneb) 3 ml EZPAP BID-RT [facility] Last Admin: 10/02/18 08:15 Dose: 3 ml Anastrozole (Arimidex) 1 mg PO QAM [facility] Last Admin: 10/02/18 08:52 Dose: 1 mg Ascorbic Acid (Vitamin C) 1,000 mg PO DAILY [facility] Last Admin: 10/02/18 08:44 Dose: 1,000 mg Diphenhydramine HCl (Benadryl) 50 mg PO Q6H PRN PRN Reason: Itching & Insomnia Diphenhydramine HCl (Benadryl) 50 mg IVP Q6H PRN PRN Reason: Itching & Insomnia Docusate Sodium (Colace) 100 mg PO BIDPRN PRN PRN Reason: Constipation Famotidine (Pepcid) 20 mg SLOW IVP Q12HR [facility] Last Admin: 10/02/18 08:44 Dose: 20 mg Fish Oil (Fish Oil) 1,000 mg PO DAILY [facility] Last Admin: 10/02/18 08:44 Dose: 1,000 mg Hydralazine HCl (Apresoline) 5 mg SLOW IVP Q15MIN PRN PRN Reason: SBP > 140 Last Admin: 10/01/18 16:15 Dose: 5 mg Sodium Chloride (Normal Saline 0.9%) 1,000 mls @ 75 mls/hr IV .[id number] [facility] Last Admin: 10/02/18 04:34 Dose: 1,000 mls Fosphenytoin Sodium 300 mg/Miscellaneous Medication 1 each/ Sodium Chloride 106 mls @ 212 mls/hr IVPB Q24HR [facility] Last Admin: 10/02/18 08:53 Dose: 106 mls Levetiracetam 1,500 mg/ Device 100 mls @ 200 mls/hr IVPB BID [facility] Last Admin: 10/02/18 08:45 Dose: 100 mls Insulin Human Lispro (Humalog) 0 units SC .MILD SLIDING SCALE PRN PRN Reason: Mild Correctional Scale Labetalol HCl (Labetalol Hcl) 10 mg SLOW IVP Q15MIN PRN PRN Reason: SBP > 140 Last Admin: 10/01/18 22:19 Dose: 10 mg Lorazepam (Ativan) 1 mg SLOW IVP Q4H PRN PRN Reason: BREAKTHROUGH SEIZURE Last Admin: 09/28/18 21:46 Dose: 1 mg Magnesium Oxide (Magnesium Oxide) 250 mg PO DAILY [facility] Last Admin: 10/02/18 08:45 Dose: 250 mg Morphine Sulfate (Morphine) 4 mg SLOW IVP Q1H PRN PRN Reason: SEVERE BREAKTHROUGH PAIN Last Admin: 09/27/18 17:31 Dose: 4 mg Morphine Sulfate (Morphine) 2 mg SLOW IVP Q1H PRN PRN Reason: FOR MOD BREAKTHROUGH PAIN Last Admin: 09/29/18 05:50 Dose: 2 mg Multivitamins (Theragran) 1 tab PO DAILY [facility] Last Admin: 10/02/18 08:44 Dose: 1 tab Ondansetron HCl (Zofran) 4 mg SLOW IVP Q8H PRN PRN Reason: Nausea/Vomiting Last Admin: 09/26/18 21:28 Dose: 4 mg Potassium Chloride (Slow-K 8 Meq) 8 meq PO QAM[facility] Last Admin: 10/02/18 08:44 Dose: 8 meq Promethazine HCl (Phenergan) 12.5 mg IM Q4H PRN PRN Reason: Nausea Promethazine HCl (Phenergan) 12.5 mg PO Q4H PRN PRN Reason: Nausea Promethazine HCl (Phenergan Suppository) 12.5 mg [place] Q4H PRN PRN Reason: Nausea Sodium Chloride (Flush - Normal Saline) 10 ml IVF Q12HR [facility] Last Admin: 10/02/18 08:48 Dose: 10 ml Sodium Chloride (Flush - Normal Saline) 10 ml IVF PRN PRN PRN Reason: Saline Flush
[2018-10-02] MEDS: hydrALAZINE 20 MG/ML VIAL SLOW IVP PRN (21:32)
[2018-10-03] MEDS: hydrALAZINE 20 MG/ML VIAL SLOW IVP PRN ×3 (04:02→19:13)
[2018-10-03 06:19] LABS: Anion Gap 12 mmol/L (10-20); BUN (Urea Nitrogen) 12 mg/dL (9.8-20.1); Calc. Creatinine Clearance 88 mL/min (70-130); Calcium 9.6 mg/dL (7.8-10.44); Carbon Dioxide 24 mmol/L (23-31); Chloride 108 mmol/L (98-107); Estimated GFR-MDRD Greater than 90; Glucose 126 mg/dL (83-110); Potassium 3.8 mmol/L (3.5-5.1); Sodium 140 mmol/L (136-145)
[2018-10-03 07:35] LABS: Hemoglobin 13.6 g/dL (12.0-16.0); Mean Corpuscular HGB CONC 32.8 g/dL (32.0-36.0); Mean Corpuscular Hemoglobin 31.5 pg (27.0-31.0); Mean Platelet Volume 7.3 fL (7.4-10.4); Platelet Count 221 thou/uL (130-400); RBC Distribution Width 12.5 % (11.5-14.5); Red Blood Cell (RBC) Count 4.33 mill/uL (4.20-5.40); White Blood Cell (WBC) Count 8.8 thou/uL (4.8-10.8)
[2018-10-03 08:28] LABS: Eosinophils 3 % (0-10); Lymphocytes 16 % (21-51); MDiff Complete? YES; Monocytes 3 % (0-10); Neutrophil 77 % (42-75); RBC Morphology Normal; Reactive Lymphocytes 1 % (0-10)
[2018-10-03] MEDS: SODIUM CHLORIDE IVPB SCH (08:47)
[2018-10-03] MEDS: FOSPHENYTOIN SODIUM IVPB SCH (08:47)
[2018-10-03] MEDS: Potassium Chloride 8 MEQ TAB PO SCH (08:47)
[2018-10-03] MEDS: ADMIXTURE FEE IVPB SCH (08:47)
[2018-10-03] MEDS: levETIRAcetam In NaCl (Iso-Os) 1,500 MG in Premix Bag 1 BAG IVPB SCH ×2 (08:47→20:37)
[2018-10-03] MEDS: Magnesium Oxide 250 MG TAB PO SCH (08:48)
--- NOTE | 2018-10-03 08:48 | PRG ---
DATE OF SERVICE: 10/03/2018 Ms. Banks this morning is awake, eyes are opened and interactive. She is somewhat confused ; however, she is able to appropriately answer me about where she is and who she is. Pupils are equal, round, and reactive to light. The cranial incision is still well approximated. Plan, hopefully today is for Speech Therapy to come back and perform a swallow study again to see if we can potentially remove the Dobbhoff tube and we will proceed from there. Otherwise, the patient is doing well. Job ID: [id number]
[2018-10-03] MEDS: Fish Oil 1,000 MG CAP PO SCH (08:53)
[2018-10-03] MEDS: Anastrozole 1 MG TAB PO SCH (08:53)
[2018-10-03] MEDS: Ascorbic Acid 500 mg Chewable Tablet PO SCH (08:54)
[2018-10-03] MEDS: Multivit, Therapeutic 1 TAB PO SCH (08:57)
[2018-10-03] MEDS: Famotidine/PF 20 mg/2ml Vial SLOW IVP SCH ×2 (08:57→20:24)
--- NOTE | 2018-10-03 10:52 | PDOC.PN ---
- Subjective Encounter Start Date: 10/03/18 Encounter Start Time: 12:00 Subjective: Patient denies pain. Very sleepy. Was only able to swallow intermittently -: with Speech therapy earlier so not able to get off tube feeds yet. - Objective MAR Reviewed: Yes Vital Signs & Weight: Vital Signs (12 hours) Temp Pulse Resp BP Pulse Ox 10/03/18 07:35 97 10/03/18 07:00 97.9 F 10/03/18 06:53 92 20 99 10/03/18 05:31 84 173/70 H 10/03/18 04:02 84 183/73 H 10/03/18 03:00 97.6 F 10/02/18 23:00 98 F Weight Admit Weight 144 lb Weight 144 lb 9.972 oz Most Recent Monitor Data Heart Rate from ECG 75 NIBP 158/71 NIBP BP-Mean 100 Respiration from ECG 25 SpO2 93 I&O: 10/02/18 10/03/18 10/04/18 06:59 06:59 06:59 Intake Total 2403 60 Output Total 1100 Balance 1303 60 Result Diagrams: 10/03/18 07:15 10/03/18 04:43 Additional Labs: Accuchecks 10/03/18 10/02/18 00:24 18:15 POC Glucose 120 H 125 H Phys Exam - Physical Examination Constitutional: NAD HEENT: moist MMs Respiratory: no wheezing, no rales, no rhonchi Cardiovascular: RRR Gastrointestinal: soft, positive bowel sounds Musculoskeletal: no edema Deviation from normal: sleepy, arousable Deviation from normal: incision to scalp healing well Dx/Plan (1) S/P resection of meningioma Code(s): Z98.890 - OTHER SPECIFIED POSTPROCEDURAL STATES; Z86.018 - PERSONAL HISTORY OF OTHER BENIGN NEOPLASM Status: Acute (2) Seizures Code(s): R56.9 - UNSPECIFIED CONVULSIONS Status: Acute Comment: on fosphenytoin and keppra, no recurrence (3) H/O malignant neoplasm of breast Code(s): Z85.3 - PERSONAL HISTORY OF MALIGNANT NEOPLASM OF BREAST Status: Chronic Comment: continue anostrazole (4) Hypercalcemia Code(s): E83.52 - HYPERCALCEMIA Status: Resolved - Plan cont current plan of care, PT/OT can go to the floor if ok with neurosurgery and pulmonology * . - Discharge Day Encounter end time: 12:10
[2018-10-03] MEDS: Sodium Chloride 0.9% 1,000 ML IV SCH (14:16)
--- NOTE | 2018-10-03 16:51 | PRG ---
DATE OF SERVICE: 10/03/2018 SUBJECTIVE: Ms. Banks answers questions quickly. She moves her left side quickly to command both upper and lower extremities, although she is a little weaker on the left in my opinion. OBJECTIVE: VITAL SIGNS: Heart rate 80, blood pressure 141/69, respiratory rate 17. Her incision is without erythema. LUNGS: Clear. HEART: Regular rhythm. ABDOMEN: Soft. LABORATORY DATA: White count 8.8, hemoglobin 13.6, platelets 221. Sodium 140, potassium 3.8, chloride 108, bicarb 24, BUN 12, creatinine 0.59. I think it would be appropriate to re-evaluate her swallowing. IMPRESSION: 1. Status post craniotomy for meningioma followed by thrombotic cerebrovascular accident. She has improved significantly. 2. Status epilepticus, now has resolved with two drugs. These are all focal motor seizures. 3. Encephalopathy associated with her status that has dramatically improved. We will continue to follow the other physicians caring for. She is probably stable to move out of the Critical Care Unit. Job ID: [id number]
--- NOTE | 2018-10-03 22:57 | RAD ---
AP PORTABLE ABDOMINAL RADIOGRAPH: Date: 10-03-18 History: Dobbhoff feeding tube placement. Comparison: 09-29-18 FINDINGS: Dobbhoff feeding tube has been advanced with the tip overlying the expected location of the gastric a ntrum or pylorus of the stomach. Surgical clips overlie the right upper quadrant. Bowel gas pattern i s nonspecific. No other interval change. IMPRESSION: Dobbhoff feeding tube noted in place with the tip overlying the expected location of the distal porti on of the stomach. POS: VANDANA
[2018-10-04 05:56] LABS: Eosinophils 2 % (0-10); Hemoglobin 13.8 g/dL (12.0-16.0); Lymphocytes 18 % (21-51); MDiff Complete? YES; Mean Corpuscular HGB CONC 33.3 g/dL (32.0-36.0); Mean Corpuscular Hemoglobin 32.1 pg (27.0-31.0); Mean Corpuscular Volume 96.5 fL (78.0-98.0); Mean Platelet Volume 7.3 fL (7.4-10.4); Monocytes 3 % (0-10); Neutrophil 77 % (42-75); Platelet Count 241 thou/uL (130-400); Platelet Morphology Comment Appears Adequate; RBC Distribution Width 12.4 % (11.5-14.5); Red Blood Cell (RBC) Count 4.29 mill/uL (4.20-5.40); White Blood Cell (WBC) Count 7.8 thou/uL (4.8-10.8)
[2018-10-04 06:06] LABS: Anion Gap 9 mmol/L (10-20); BUN (Urea Nitrogen) 12 mg/dL (9.8-20.1); Calc. Creatinine Clearance 80 mL/min (70-130); Calcium 9.6 mg/dL (7.8-10.44); Carbon Dioxide 27 mmol/L (23-31); Chloride 107 mmol/L (98-107); Estimated GFR-MDRD 89; Glucose 150 mg/dL (83-110); Potassium 3.9 mmol/L (3.5-5.1); Sodium 139 mmol/L (136-145)
[2018-10-04] MEDS: Anastrozole 1 MG TAB PO SCH (09:07)
[2018-10-04] MEDS: Multivit, Therapeutic 1 TAB PO SCH (09:08)
[2018-10-04] MEDS: Ascorbic Acid 500 mg Chewable Tablet PO SCH (09:08)
[2018-10-04] MEDS: Famotidine/PF 20 mg/2ml Vial SLOW IVP SCH ×2 (09:09→20:12)
[2018-10-04] MEDS: Potassium Chloride 8 MEQ TAB PO SCH (09:09)
[2018-10-04] MEDS: Fish Oil 1,000 MG CAP PO SCH (09:09)
[2018-10-04] MEDS: levETIRAcetam In NaCl (Iso-Os) 1,500 MG in Premix Bag 1 BAG IVPB SCH ×2 (09:10→20:12)
[2018-10-04] MEDS: Magnesium Oxide 250 MG TAB PO SCH (09:10)
--- NOTE | 2018-10-04 09:32 | PDOC.PN ---
- Subjective Encounter Start Date: 10/04/18 Encounter Start Time: 12:40 Subjective: Patient more awake today. ST has cleared to eat lunch. - Objective MAR Reviewed: Yes Vital Signs & Weight: Vital Signs (12 hours) Temp Pulse Resp Pulse Ox 10/04/18 07:52 83 19 97 10/04/18 07:13 98.6 F 10/04/18 03:50 98.9 F 10/04/18 00:00 98.9 F Weight Admit Weight 144 lb Weight 144 lb 6.444 oz Most Recent Monitor Data Heart Rate from ECG 80 NIBP 142/73 NIBP BP-Mean 96 Respiration from ECG 17 SpO2 97 I&O: 10/03/18 10/04/18 10/05/18 06:59 06:59 06:59 Intake Total 2403 2319 30 Output Total 1100 1800 Balance 1303 519 30 Result Diagrams: 10/04/18 05:16 10/04/18 05:16 Additional Labs: Accuchecks 10/03/18 12:35 POC Glucose 137 H Phys Exam - Physical Examination Constitutional: NAD HEENT: moist MMs dobhoff tube in place, patient's right hand restrained as constantly trying to pull out Respiratory: no wheezing, no rales, no rhonchi Cardiovascular: RRR, no significant murmur Musculoskeletal: no edema weak on the left but able to move some Psychiatric: normal affect Dx/Plan (1) S/P resection of meningioma Code(s): Z98.890 - OTHER SPECIFIED POSTPROCEDURAL STATES; Z86.018 - PERSONAL HISTORY OF OTHER BENIGN NEOPLASM Status: Acute (2) Seizures Code(s): R56.9 - UNSPECIFIED CONVULSIONS Status: Acute Comment: on fosphenytoin and keppra, no recurrence (3) H/O malignant neoplasm of breast Code(s): Z85.3 - PERSONAL HISTORY OF MALIGNANT NEOPLASM OF BREAST Status: Chronic Comment: continue anostrazole (4) Hypercalcemia Code(s): E83.52 - HYPERCALCEMIA Status: Resolved - Plan cont current plan of care, PT/OT, speech therapy can pull dobhoff tube if able to eat lunch well -: placement when ok with Neurosurg * . - Discharge Day Encounter end time: 12:50
[2018-10-04] MEDS: ADMIXTURE FEE IVPB SCH (09:50)
[2018-10-04] MEDS: FOSPHENYTOIN SODIUM IVPB SCH (09:50)
[2018-10-04] MEDS: SODIUM CHLORIDE IVPB SCH (09:50)
--- NOTE | 2018-10-04 17:15 | PRG ---
DATE OF SERVICE: 10/04/2018 SUBJECTIVE: Ms. Banks is sitting up in a neuro chair. She is leaning to the left. She is still weak on her left side. OBJECTIVE: VITAL SIGNS: She is afebrile. She is on room air. Blood pressure is 134/69, heart rate 88, oximetry is 94% on room air. LUNGS: Clear. HEART: Regular rhythm. ABDOMEN: Soft. LABORATORY DATA: White count 7.8, hemoglobin 13.8, and platelets 241. Electrolytes were unremarkable. 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 Placement is the next step for her. She still has a Dobbhoff tube in place. She is probably someone that really needs a PEG as I doubt she will get adequate nutrition by mouth and none of the skilled unit or long-term acute care facilities will take a patient with a Dobbhoff tube. Job ID: [id number] MTDD
[2018-10-05 04:24] LABS: Anion Gap 11 mmol/L (10-20); BUN (Urea Nitrogen) 12 mg/dL (9.8-20.1); Calc. Creatinine Clearance 81 mL/min (70-130); Calcium 9.5 mg/dL (7.8-10.44); Carbon Dioxide 26 mmol/L (23-31); Chloride 107 mmol/L (98-107); Estimated GFR-MDRD Greater than 90; Glucose 102 mg/dL (83-110); Potassium 3.9 mmol/L (3.5-5.1); Sodium 140 mmol/L (136-145)
[2018-10-05 04:39] LABS: Hemoglobin 13.8 g/dL (12.0-16.0); Lymphocytes 16 % (21-51); MDiff Complete? YES; Mean Corpuscular Hemoglobin 31.7 pg (27.0-31.0); Mean Corpuscular Volume 95.8 fL (78.0-98.0); Mean Platelet Volume 7.4 fL (7.4-10.4); Monocytes 9 % (0-10); Neutrophil 75 % (42-75); Platelet Count 200 thou/uL (130-400); Platelet Morphology Comment Appears Adequate; RBC Distribution Width 12.3 % (11.5-14.5); RBC Morphology Normal; Red Blood Cell (RBC) Count 4.37 mill/uL (4.20-5.40); White Blood Cell (WBC) Count 6.9 thou/uL (4.8-10.8)
[2018-10-05] MEDS: Acetaminophen 325 MG TAB PO PRN (09:46)
[2018-10-05] MEDS: Potassium Chloride 8 MEQ TAB PO SCH (09:46)
[2018-10-05] MEDS: Magnesium Oxide 250 MG TAB PO SCH (09:47)
[2018-10-05] MEDS: Multivit, Therapeutic 1 TAB PO SCH (09:47)
[2018-10-05] MEDS: Anastrozole 1 MG TAB PO SCH (09:47)
[2018-10-05] MEDS: Famotidine/PF 20 mg/2ml Vial SLOW IVP SCH ×2 (09:47→21:35)
[2018-10-05] MEDS: Fish Oil 1,000 MG CAP PO SCH (09:47)
[2018-10-05] MEDS: SODIUM CHLORIDE IVPB SCH (09:48)
[2018-10-05] MEDS: ADMIXTURE FEE IVPB SCH (09:48)
[2018-10-05] MEDS: levETIRAcetam In NaCl (Iso-Os) 1,500 MG in Premix Bag 1 BAG IVPB SCH (09:48)
[2018-10-05] MEDS: FOSPHENYTOIN SODIUM IVPB SCH (09:48)
--- NOTE | 2018-10-05 09:52 | PDOC.PN ---
- Subjective Encounter Start Date: 10/05/18 Encounter Start Time: 12:10 Subjective: Patient was able to eat some lunch. Switching to puree due to pocketing -: of food in left mouth. Dobhoff tube out. - Objective MAR Reviewed: Yes Vital Signs & Weight: Vital Signs (12 hours) Temp Pulse Resp BP Pulse Ox 10/05/18 08:00 98 10/05/18 07:18 98.4 F 10/05/18 06:35 73 16 100 10/05/18 04:48 74 167/72 H 10/05/18 04:06 97.9 F 10/05/18 04:03 74 167/72 H Weight Admit Weight 144 lb Weight 142 lb 10.225 oz Most Recent Monitor Data Heart Rate from ECG 71 NIBP 162/86 NIBP BP-Mean 111 Respiration from ECG 12 SpO2 97 I&O: 10/04/18 10/05/18 10/06/18 06:59 06:59 06:59 Intake Total 2319 960 Output Total 1800 550 Balance 519 410 Result Diagrams: 10/05/18 03:58 10/05/18 03:58 Phys Exam - Physical Examination Constitutional: NAD HEENT: moist MMs Respiratory: no wheezing, no rales, no rhonchi Cardiovascular: RRR Gastrointestinal: soft, non-tender, positive bowel sounds weak on left side of body Psychiatric: normal affect Dx/Plan (1) S/P resection of meningioma Code(s): Z98.890 - OTHER SPECIFIED POSTPROCEDURAL STATES; Z86.018 - PERSONAL HISTORY OF OTHER BENIGN NEOPLASM Status: Acute (2) Seizures Code(s): R56.9 - UNSPECIFIED CONVULSIONS Status: Acute Comment: on fosphenytoin and keppra, no recurrence (3) H/O malignant neoplasm of breast Code(s): Z85.3 - PERSONAL HISTORY OF MALIGNANT NEOPLASM OF BREAST Status: Chronic Comment: continue anostrazole (4) Hypercalcemia Code(s): E83.52 - HYPERCALCEMIA Status: Resolved - Plan cont current plan of care arrange rehab/snf * . - Discharge Day Encounter end time: 12:20
[2018-10-05 13:54] VITALS: BMI 23.0
--- NOTE | 2018-10-05 17:50 | PRG ---
DATE OF SERVICE: 10/05/2018 SUBJECTIVE: Christiana Banks remains stable. She is very quick to interact. She still favors her right side. OBJECTIVE: VITAL SIGNS: Blood pressure 126/60, heart rate 72, respiratory rate 14, and oximetry is 95 on room air. LUNGS: Clear. HEART: Regular rhythm. ABDOMEN: Soft. IMPRESSION AND PLAN: Status post thrombotic cerebrovascular accident after resection of a meningioma, clinically stable. Her Dobbhoff tube is out and seems to be tolerating her nutrition reasonably well. We will continue to follow with family, answered all their questions. Job ID: [id number]
[2018-10-05] MEDS: levETIRAcetam 500 MG TAB PO SCH (21:34)
[2018-10-06 06:36] LABS: Hemoglobin 13.2 g/dL (12.0-16.0); Mean Corpuscular HGB CONC 33.8 g/dL (32.0-36.0); Mean Corpuscular Hemoglobin 32.7 pg (27.0-31.0); Mean Corpuscular Volume 96.7 fL (78.0-98.0); Mean Platelet Volume 6.9 fL (7.4-10.4); Platelet Count 236 thou/uL (130-400); RBC Distribution Width 12.4 % (11.5-14.5); Red Blood Cell (RBC) Count 4.06 mill/uL (4.20-5.40); White Blood Cell (WBC) Count 7.5 thou/uL (4.8-10.8)
[2018-10-06 06:37] LABS: Band 3 % (5-11); Eosinophils 3 % (0-10); Lymphocytes 12 % (21-51); MDiff Complete? YES; Monocytes 9 % (0-10); Neutrophil 73 % (42-75); Platelet Morphology Comment Appears Adequate
[2018-10-06 06:41] LABS: Anion Gap 13 mmol/L (10-20); BUN (Urea Nitrogen) 13 mg/dL (9.8-20.1); Calc. Creatinine Clearance 82 mL/min (70-130); Calcium 9.5 mg/dL (7.8-10.44); Carbon Dioxide 26 mmol/L (23-31); Chloride 105 mmol/L (98-107); Estimated GFR-MDRD Greater than 90; Glucose 116 mg/dL (83-110); Potassium 3.7 mmol/L (3.5-5.1); Sodium 140 mmol/L (136-145)
[2018-10-06] MEDS: Multivit, Therapeutic 1 TAB PO SCH (09:26)
[2018-10-06] MEDS: Magnesium Oxide 250 MG TAB PO SCH (09:26)
[2018-10-06] MEDS: levETIRAcetam 500 MG TAB PO SCH ×2 (09:26→20:36)
[2018-10-06] MEDS: Anastrozole 1 MG TAB PO SCH (09:27)
[2018-10-06] MEDS: Fish Oil 1,000 MG CAP PO SCH (09:27)
[2018-10-06] MEDS: Ascorbic Acid 500 mg Chewable Tablet PO SCH (09:28)
[2018-10-06] MEDS: Potassium Chloride 8 MEQ TAB PO SCH (09:28)
[2018-10-06] MEDS: Famotidine/PF 20 mg/2ml Vial SLOW IVP SCH ×2 (09:28→20:36)
--- NOTE | 2018-10-06 09:49 | PDOC.PN ---
- Subjective Encounter Start Date: 10/06/18 Encounter Start Time: 11:30 Subjective: Patient eating well. Taking oral meds. No complaints. - Objective MAR Reviewed: Yes Vital Signs & Weight: Vital Signs (12 hours) Temp 10/06/18 07:16 98.6 F 10/06/18 04:00 99.7 F H 10/05/18 23:50 98.9 F Weight Admit Weight 144 lb Weight 145 lb 8.081 oz Most Recent Monitor Data Heart Rate from ECG 83 NIBP 167/77 NIBP BP-Mean 107 Respiration from ECG 18 SpO2 95 I&O: 10/05/18 10/06/18 10/07/18 06:59 06:59 06:59 Intake Total 960 440 Output Total 550 900 Balance 410 -460 Result Diagrams: 10/06/18 05:43 10/06/18 05:43 Phys Exam - Physical Examination Constitutional: NAD HEENT: moist MMs Respiratory: no wheezing, no rales, no rhonchi Cardiovascular: RRR Gastrointestinal: soft, non-tender, positive bowel sounds Musculoskeletal: no edema left side weakness Psychiatric: normal affect Dx/Plan (1) S/P resection of meningioma Code(s): Z98.890 - OTHER SPECIFIED POSTPROCEDURAL STATES; Z86.018 - PERSONAL HISTORY OF OTHER BENIGN NEOPLASM Status: Acute (2) Seizures Code(s): R56.9 - UNSPECIFIED CONVULSIONS Status: Acute Comment: on fosphenytoin and keppra, no recurrence, transitioned to oral meds (3) H/O malignant neoplasm of breast Code(s): Z85.3 - PERSONAL HISTORY OF MALIGNANT NEOPLASM OF BREAST Status: Chronic Comment: continue anostrazole (4) Hypercalcemia Code(s): E83.52 - HYPERCALCEMIA Status: Resolved - Plan cont current plan of care, PT/OT stable on oral intake, can go to rehab from our standpoint at any time * . - Discharge Day Encounter end time: 11:40
--- NOTE | 2018-10-06 13:20 | PRG ---
DATE OF SERVICE: 10/06/2018 Ms. Banks is on the 10th day of her hospital stay. She is in the IMCU this morning and actually looks really overall well least as well as I have seen her this whole time and during this admission. She is awake and alert. Answers my questions appropriately. Moves all 4 extremities. Seems to have improved strength in the left upper and left lower extremity. Plan at this point is getting her over to inpatient rehab. We will continue to follow up with Case Management. Job ID: [id number]
--- NOTE | 2018-10-06 13:27 | PRG ---
DATE OF SERVICE: 10/06/2018 SUBJECTIVE: Christiana Banks is feeding herself. She looks good. OBJECTIVE: GENERAL: She is in no distress. VITAL SIGNS: Temperature is 100.4, oximetry is 97, heart rate 77, respiratory rate 17. LUNGS: Clear. HEART: Regular rhythm. ABDOMEN: Soft. IMPRESSION: Low-grade temperature elevation? secondary to atelectasis. I will Doppler her legs today since she has been in bed for prolonged period of time. If her temperature gets higher, may need to culture and repeat a chest radiograph. Job ID: [id number] MTDD
--- NOTE | 2018-10-06 15:35 | ULT ---
ULTRASOUND WITH DOPPLER DUPLEX VENOUS LOWER EXTREMITY BILATERAL 10/06/18 CPT: 78081 ICD-10-PCS: B54D HISTORY: Pain, edema, fever. TECHNIQUE: Color flow Doppler, spectral waveform analysis of pulsed Doppler, and pat-scale imaging with kevon jian and augmentation, were used to evaluate the bilateral common femoral, femoral, popliteal, firearms model maker ior tibial, and superficial femoral, veins; and the proximal portions of the profunda femoral and gre ater saphenous, veins. FINDINGS: There is appropriate compressibility and flow within the imaged deep vein system of the right lower e xtremity. Within the imaged left lower extremity, there is abnormal increased intraluminal echogenicity, dimin ished flow, and reduced compressibility involving the left popliteal and peroneal veins with some pre servation of flow noted. Remaining deep vein structures of the left lower extremity are patent. IMPRESSION: Evidence of DVT within the left popliteal and peroneal veins. Notification of these findings to the patient's nurse, Andrew, was placed at the time of the exam, 14 52 hours, 10/06/18. Code CR POS: VANDANA
[2018-10-07] MEDS: Sodium Chloride 0.9% 1,000 ML IV SCH (04:46)
[2018-10-07 04:59] LABS: Anion Gap 12 mmol/L (10-20); BUN (Urea Nitrogen) 12 mg/dL (9.8-20.1); Calc. Creatinine Clearance 86 mL/min (70-130); Calcium 9.3 mg/dL (7.8-10.44); Carbon Dioxide 24 mmol/L (23-31); Chloride 107 mmol/L (98-107); Estimated GFR-MDRD Greater than 90; Glucose 99 mg/dL (83-110); Potassium 4.1 mmol/L (3.5-5.1); Sodium 139 mmol/L (136-145)
[2018-10-07 05:21] LABS: Band 5 % (5-11); Eosinophils 3 % (0-10); Hemoglobin 12.9 g/dL (12.0-16.0); Lymphocytes 20 % (21-51); MDiff Complete? YES; Mean Corpuscular HGB CONC 32.9 g/dL (32.0-36.0); Mean Corpuscular Volume 97.2 fL (78.0-98.0); Mean Platelet Volume 6.7 fL (7.4-10.4); Monocytes 6 % (0-10); Neutrophil 66 % (42-75); Platelet Count 230 thou/uL (130-400); RBC Distribution Width 12.3 % (11.5-14.5); Red Blood Cell (RBC) Count 4.03 mill/uL (4.20-5.40); White Blood Cell (WBC) Count 8.4 thou/uL (4.8-10.8)
--- NOTE | 2018-10-07 08:56 | CT ---
CT BRAIN: DATE: 10/07/2018. PROVIDED CLINICAL HISTORY: Followup intracranial hemorrhage. FINDINGS: Comparison is made with the examination dated 09/29/2018. Postoperative changes involving the right mi ddle cranial fossa redemonstrated. There is hyperdense material present at the anterior aspect of th e middle cranial fossa, similar to the prior examination that may reflect hemorrhage or tumor. There is extensive vasogenic edema involving the right frontal and temporal lobes. There is approximately 9 mm of [id number] shift of the midline structures, slightly increased with respect to the prior examination. The basilar cisterns appear patent. There is a small amount of persistent pneumocephal us. Patchy increased density within the right frontal region is less conspicuous than on prior and l ikely reflects a small amount of residual hemorrhage. The extracranial soft tissues and osseous stru ctures appear similar. IMPRESSION: Slight interval increase in [id number]-[id number] midline shift with persistent extensive vasogenic edema inv olving the right frontal and right temporal lobes. Persistent areas of hyperdensity involving the ri ght frontal lobe and right middle cranial fossa as above. POS: TPC
[2018-10-07] MEDS: Fish Oil 1,000 MG CAP PO SCH (09:25)
[2018-10-07] MEDS: Potassium Chloride 8 MEQ TAB PO SCH (09:25)
[2018-10-07] MEDS: Famotidine/PF 20 mg/2ml Vial SLOW IVP SCH ×2 (09:25→20:42)
[2018-10-07] MEDS: Anastrozole 1 MG TAB PO SCH (09:25)
[2018-10-07] MEDS: Ascorbic Acid 500 mg Chewable Tablet PO SCH (09:25)
[2018-10-07] MEDS: Multivit, Therapeutic 1 TAB PO SCH (09:25)
[2018-10-07] MEDS: levETIRAcetam 500 MG TAB PO SCH ×2 (09:25→20:42)
[2018-10-07] MEDS: Magnesium Oxide 250 MG TAB PO SCH (09:26)
--- NOTE | 2018-10-07 10:11 | PRG ---
DATE OF SERVICE: 10/07/2018 Ms. Banks continues to have a gradual improvement. Our plan is to move her towards inpatient rehab. A lower extremity DVT was identified yesterday on ultrasound. I performed a head CT today, which shows persistent evidence of infarct, but no new areas of hemorrhage. She does have some midline shift. I spoke with Dr. Young this morning and indicated that I believe the benefits of anticoagulation outweigh the risks at this point. Neurologically, she is resting comfortably in the bed and awakens to voice and follows commands. Once all team members are safe with her discharging to rehab, that can take place. I anticipate that could happen as early as this weekend. Job ID: [id number]
[2018-10-07] MEDS: Enoxaparin Sodium 60 MG/0.6 ML SYRINGE SC SCH ×2 (10:46→20:42)
--- NOTE | 2018-10-07 14:36 | PDOC.PN ---
- Subjective Encounter Start Date: 10/07/18 Encounter Start Time: 12:00 Subjective: awake, moves all extremities -: no sob, responds well to verbal questions - Objective MAR Reviewed: Yes Vital Signs & Weight: Vital Signs (12 hours) Temp Pulse Resp Pulse Ox 10/07/18 10:38 98.2 F 10/07/18 07:54 83 18 100 10/07/18 07:31 96 10/07/18 07:13 97.6 F 10/07/18 04:00 98.9 F Weight Admit Weight 144 lb Weight 143 lb 11.862 oz Most Recent Monitor Data Heart Rate from ECG 87 NIBP 131/64 NIBP BP-Mean 86 Respiration from ECG 17 SpO2 97 I&O: 10/06/18 10/07/18 10/08/18 06:59 06:59 06:59 Intake Total 440 840 Output Total 900 Balance -460 840 Result Diagrams: 10/07/18 04:05 10/07/18 04:05 Phys Exam - Physical Examination HEENT: PERRLA, sclera anicteric Neck: no JVD, supple Respiratory: no wheezing, no rales Cardiovascular: RRR, no significant murmur Gastrointestinal: soft, non-tender, positive bowel sounds Musculoskeletal: no edema, pulses present Neurological: non-focal, moves all 4 limbs Psychiatric: A&O x 3 Dx/Plan (1) DVT (deep venous thrombosis) Code(s): I82.409 - ACUTE EMBOLISM AND THOMBOS UNSP DEEP VN UNSP LOWER EXTREMITY Status: Acute Qualifiers: DVT location: lower extremity Affected thrombotic vein of extremity: popliteal Chronicity: acute Laterality: left Qualified Code(s): I82.432 - Acute embolism and thrombosis of left popliteal vein (2) Physical deconditioning Code(s): R53.81 - OTHER MALAISE Status: Acute (3) S/P resection of meningioma Code(s): Z98.890 - OTHER SPECIFIED POSTPROCEDURAL STATES; Z86.018 - PERSONAL HISTORY OF OTHER BENIGN NEOPLASM Status: Acute (4) Seizures Code(s): R56.9 - UNSPECIFIED CONVULSIONS Status: Acute Comment: on fosphenytoin and keppra, no recurrence, transitioned to oral meds (5) H/O malignant neoplasm of breast Code(s): Z85.3 - PERSONAL HISTORY OF MALIGNANT NEOPLASM OF BREAST Status: Chronic Comment: continue anostrazole - Plan is stable on high dose keppra and phenytoin -: on lovenox full dose if not will need removable filter until she amb -: home meds fish oil, arimidex, nebs prn -: PT to mobilize as tolerated -: encourage po intake * . Review of Systems - Medications/Allergies Allergies/Adverse Reactions: Allergies Allergy/AdvReac Type Severity Reaction Status Date / Time No Known Allergies Allergy Verified 09/23/18 14:50 Medications: Current Medications Acetaminophen (Tylenol) 650 mg PO Q4H PRN PRN Reason: Headache/Fever or Mild Pain Last Admin: 10/05/18 09:46 Dose: 650 mg Acetaminophen (Tylenol) 650 mg OK Q4H PRN PRN Reason: Headache/Fever or Pain1-3 Last Admin: 09/28/18 14:04 Dose: 650 mg Al Hydroxide/Mg Hydroxide (Maalox) 30 ml PO Q6H PRN PRN Reason: Heartburn or Indigestion Albuterol/Ipratropium (Duoneb) 3 ml EZPAP BID-RT [facility] Last Admin: 10/07/18 07:54 Dose: 3 ml Anastrozole (Arimidex) 1 mg PO QAM [facility] Last Admin: 10/07/18 09:25 Dose: 1 mg Ascorbic Acid (Vitamin C) 1,000 mg PO DAILY [facility] Last Admin: 10/07/18 09:25 Dose: 1,000 mg Diphenhydramine HCl (Benadryl) 50 mg PO Q6H PRN PRN Reason: Itching & Insomnia Diphenhydramine HCl (Benadryl) 50 mg IVP Q6H PRN PRN Reason: Itching & Insomnia Last Admin: 10/04/18 22:46 Dose: 50 mg Docusate Sodium (Colace) 100 mg PO BIDPRN PRN PRN Reason: Constipation Enoxaparin Sodium (Lovenox) 60 mg SC 0900,2100 [facility] Last Admin: 10/07/18 10:46 Dose: 60 mg Famotidine (Pepcid) 20 mg SLOW IVP Q12HR [facility] Last Admin: 10/07/18 09:25 Dose: 20 mg Fish Oil (Fish Oil) 1,000 mg PO DAILY [facility] Last Admin: 10/07/18 09:25 Dose: 1,000 mg Hydralazine HCl (Apresoline) 5 mg SLOW IVP Q15MIN PRN PRN Reason: SBP > 140 Last Admin: 10/03/18 19:13 Dose: 5 mg Sodium Chloride (Normal Saline 0.9%) 1,000 mls @ 0 mls/hr IV .Q0M [facility] Last Admin: 10/07/18 04:46 Dose: 1,000 mls Labetalol HCl (Labetalol Hcl) 10 mg SLOW IVP Q15MIN PRN PRN Reason: SBP > 140 Last Admin: 10/05/18 04:48 Dose: 10 mg Levetiracetam (Keppra) 1,500 mg PO BID [facility] Last Admin: 10/07/18 09:25 Dose: 1,500 mg Lorazepam (Ativan) 1 mg SLOW IVP Q4H PRN PRN Reason: BREAKTHROUGH SEIZURE Last Admin: 09/28/18 21:46 Dose: 1 mg Magnesium Oxide (Magnesium Oxide) 250 mg PO DAILY [facility] Last Admin: 10/07/18 09:26 Dose: 250 mg Multivitamins (Theragran) 1 tab PO DAILY [facility] Last Admin: 10/07/18 09:25 Dose: 1 tab Ondansetron HCl (Zofran) 4 mg SLOW IVP Q8H PRN PRN Reason: Nausea/Vomiting Last Admin: 09/26/18 21:28 Dose: 4 mg Phenytoin Sodium (Dilantin Er) 300 mg PO DAILY [facility] Last Admin: 10/07/18 09:25 Dose: 300 mg Potassium Chloride (Slow-K 8 Meq) 8 meq PO QAM[facility] Last Admin: 10/07/18 09:25 Dose: 8 meq Promethazine HCl (Phenergan) 12.5 mg IM Q4H PRN PRN Reason: Nausea Promethazine HCl (Phenergan) 12.5 mg PO Q4H PRN PRN Reason: Nausea Promethazine HCl (Phenergan Suppository) 12.5 mg OK Q4H PRN PRN Reason: Nausea Sodium Chloride (Flush - Normal Saline) 10 ml IVF Q12HR [facility] Last Admin: 10/07/18 09:26 Dose: 10 ml Sodium Chloride (Flush - Normal Saline) 10 ml IVF PRN PRN PRN Reason: Saline Flush Last Admin: 10/05/18 04:03 Dose: 10 ml
[2018-10-07] MEDS: Acetaminophen 325 MG TAB PO PRN (16:38)
--- NOTE | 2018-10-07 18:55 | PRG ---
DATE OF SERVICE: 10/07/2018 Christiana Banks had repeat imaging of her brain today. I talked to Dr. Garcia about her. He felt she was stable for anticoagulation. Lovenox has been started, other than that there is no significant clinical change. She will eventually need to be converted to enteral anticoagulants, but I would start for a few days of Lovenox. The risk of an embolic event is quite low given the distal nature of the clot. Job ID: [id number]
[2018-10-08 05:30] LABS: Anion Gap 11 mmol/L (10-20); BUN (Urea Nitrogen) 12 mg/dL (9.8-20.1); Calc. Creatinine Clearance 87 mL/min (70-130); Calcium 8.9 mg/dL (7.8-10.44); Carbon Dioxide 25 mmol/L (23-31); Chloride 107 mmol/L (98-107); Estimated GFR-MDRD Greater than 90; Glucose 97 mg/dL (83-110); Potassium 3.7 mmol/L (3.5-5.1); Sodium 139 mmol/L (136-145)
[2018-10-08 05:43] LABS: Band 4 % (5-11); Eosinophils 3 % (0-10); Hemoglobin 12.5 g/dL (12.0-16.0); Lymphocytes 9 % (21-51); MDiff Complete? YES; Mean Corpuscular HGB CONC 34.3 g/dL (32.0-36.0); Mean Corpuscular Hemoglobin 32.5 pg (27.0-31.0); Mean Corpuscular Volume 94.9 fL (78.0-98.0); Mean Platelet Volume 6.6 fL (7.4-10.4); Monocytes 8 % (0-10); Neutrophil 75 % (42-75); Platelet Count 184 thou/uL (130-400); Platelet Morphology Comment Appears Adequate; RBC Distribution Width 12.3 % (11.5-14.5); Reactive Lymphocytes 1 % (0-10); Red Blood Cell (RBC) Count 3.84 mill/uL (4.20-5.40); White Blood Cell (WBC) Count 7.6 thou/uL (4.8-10.8)
[2018-10-08] MEDS: Multivit, Therapeutic 1 TAB PO SCH (09:17)
[2018-10-08] MEDS: levETIRAcetam 500 MG TAB PO SCH ×2 (09:18→21:12)
[2018-10-08] MEDS: Ascorbic Acid 500 mg Chewable Tablet PO SCH (09:18)
[2018-10-08] MEDS: Potassium Chloride 8 MEQ TAB PO SCH (09:18)
[2018-10-08] MEDS: Fish Oil 1,000 MG CAP PO SCH (09:18)
[2018-10-08] MEDS: Magnesium Oxide 250 MG TAB PO SCH (09:18)
[2018-10-08] MEDS: Anastrozole 1 MG TAB PO SCH (09:19)
[2018-10-08] MEDS: Famotidine/PF 20 mg/2ml Vial SLOW IVP SCH ×2 (09:19→21:12)
[2018-10-08] MEDS: Enoxaparin Sodium 60 MG/0.6 ML SYRINGE SC SCH ×2 (09:19→21:12)
--- NOTE | 2018-10-08 09:53 | PRG ---
DATE OF SERVICE: 10/08/2018 HOSPITAL COURSE: Ms. Banks is on the 12th day of her hospital stay. She was ready for discharge to a rehab medically as of , but then was discovered to have a DVT and Lovenox was started yesterday. [facility] if this is now an acceptable timeframe to transfer her. If not, we will continue to follow her in the IMCU. From neurologic standpoint, she seems to be doing very well. She is feeding herself breakfast and is interactive, although at times confused. Job ID: [id number]
[2018-10-08] MEDS: Acetaminophen 325 MG TAB PO PRN (11:22)
[2018-10-08 15:49] VITALS: BP 143/59
--- NOTE | 2018-10-08 16:16 | PDOC.PN ---
- Subjective Encounter Start Date: 10/08/18 Encounter Start Time: 13:00 Subjective: is eating better, feeding herself -: moving all extremities - Objective MAR Reviewed: Yes Vital Signs & Weight: Vital Signs (12 hours) Temp Pulse Pulse Pulse Resp BP BP 10/08/18 15:13 99.2 F 10/08/18 14:59 75 80 143/59 H 122/70 10/08/18 11:29 99.6 F 10/08/18 07:46 86 20 10/08/18 07:42 10/08/18 07:14 99.5 F 10/08/18 04:23 98.4 F Pulse Ox Pulse Ox Pulse Ox 10/08/18 15:13 10/08/18 14:59 100 98 10/08/18 11:29 10/08/18 07:46 10/08/18 07:42 98 10/08/18 07:14 10/08/18 04:23 Weight Admit Weight 144 lb Weight 143 lb 8.335 oz Most Recent Monitor Data Heart Rate from ECG 72 NIBP 124/70 NIBP BP-Mean 88 Respiration from ECG 21 SpO2 99 I&O: 10/07/18 10/08/18 10/09/18 06:59 06:59 06:59 Intake Total 840 600 Balance 840 600 Result Diagrams: 10/08/18 05:00 10/08/18 05:00 Phys Exam - Physical Examination HEENT: PERRLA, sclera anicteric Neck: no JVD, supple Respiratory: no wheezing, no rales Cardiovascular: RRR, no significant murmur Gastrointestinal: soft, non-tender, positive bowel sounds Musculoskeletal: no edema, pulses present Neurological: non-focal, moves all 4 limbs Dx/Plan (1) DVT (deep venous thrombosis) Code(s): I82.409 - ACUTE EMBOLISM AND THOMBOS UNSP DEEP VN UNSP LOWER EXTREMITY Status: Acute Qualifiers: DVT location: lower extremity Affected thrombotic vein of extremity: popliteal Chronicity: acute Laterality: left Qualified Code(s): I82.432 - Acute embolism and thrombosis of left popliteal vein (2) Physical deconditioning Code(s): R53.81 - OTHER MALAISE Status: Acute (3) S/P resection of meningioma Code(s): Z98.890 - OTHER SPECIFIED POSTPROCEDURAL STATES; Z86.018 - PERSONAL HISTORY OF OTHER BENIGN NEOPLASM Status: Acute (4) Seizures Code(s): R56.9 - UNSPECIFIED CONVULSIONS Status: Acute Comment: on fosphenytoin and keppra, no recurrence, transitioned to oral meds (5) H/O malignant neoplasm of breast Code(s): Z85.3 - PERSONAL HISTORY OF MALIGNANT NEOPLASM OF BREAST Status: Chronic Comment: continue anostrazole - Plan neuro/hemostable, labs are stable -: on full dose lovenox -: continue keppra, phenytoin, fish oil and arimidex -: PT to mobilize as tolerated, oob to chair -: awaiting rehab placement * . Review of Systems - Medications/Allergies Allergies/Adverse Reactions: Allergies Allergy/AdvReac Type Severity Reaction Status Date / Time No Known Allergies Allergy Verified 09/23/18 14:50 Medications: Current Medications Acetaminophen (Tylenol) 650 mg PO Q4H PRN PRN Reason: Headache/Fever or Mild Pain Last Admin: 10/08/18 11:22 Dose: 650 mg Acetaminophen (Tylenol) 650 mg SD Q4H PRN PRN Reason: Headache/Fever or Pain1-3 Last Admin: 09/28/18 14:04 Dose: 650 mg Al Hydroxide/Mg Hydroxide (Maalox) 30 ml PO Q6H PRN PRN Reason: Heartburn or Indigestion Albuterol/Ipratropium (Duoneb) 3 ml EZPAP BID-RT [facility] Last Admin: 10/08/18 07:46 Dose: 3 ml Anastrozole (Arimidex) 1 mg PO QAM [facility] Last Admin: 10/08/18 09:19 Dose: 1 mg Ascorbic Acid (Vitamin C) 1,000 mg PO DAILY [facility] Last Admin: 10/08/18 09:18 Dose: 1,000 mg Diphenhydramine HCl (Benadryl) 50 mg PO Q6H PRN PRN Reason: Itching & Insomnia Diphenhydramine HCl (Benadryl) 50 mg IVP Q6H PRN PRN Reason: Itching & Insomnia Last Admin: 10/04/18 22:46 Dose: 50 mg Docusate Sodium (Colace) 100 mg PO BIDPRN PRN PRN Reason: Constipation Enoxaparin Sodium (Lovenox) 60 mg SC 0900,2100 [facility] Last Admin: 10/08/18 09:19 Dose: 60 mg Famotidine (Pepcid) 20 mg SLOW IVP Q12HR [facility] Last Admin: 10/08/18 09:19 Dose: 20 mg Fish Oil (Fish Oil) 1,000 mg PO DAILY [facility] Last Admin: 10/08/18 09:18 Dose: 1,000 mg Hydralazine HCl (Apresoline) 5 mg SLOW IVP Q15MIN PRN PRN Reason: SBP > 140 Last Admin: 10/03/18 19:13 Dose: 5 mg Sodium Chloride (Normal Saline 0.9%) 1,000 mls @ 0 mls/hr IV .Q0M [facility] Last Admin: 10/07/18 04:46 Dose: 1,000 mls Labetalol HCl (Labetalol Hcl) 10 mg SLOW IVP Q15MIN PRN PRN Reason: SBP > 140 Last Admin: 10/05/18 04:48 Dose: 10 mg Levetiracetam (Keppra) 1,500 mg PO BID [facility] Last Admin: 10/08/18 09:18 Dose: 1,500 mg Lorazepam (Ativan) 1 mg SLOW IVP Q4H PRN PRN Reason: BREAKTHROUGH SEIZURE Last Admin: 09/28/18 21:46 Dose: 1 mg Magnesium Oxide (Magnesium Oxide) 250 mg PO DAILY [facility] Last Admin: 10/08/18 09:18 Dose: 250 mg Multivitamins (Theragran) 1 tab PO DAILY [facility] Last Admin: 10/08/18 09:17 Dose: 1 tab Ondansetron HCl (Zofran) 4 mg SLOW IVP Q8H PRN PRN Reason: Nausea/Vomiting Last Admin: 09/26/18 21:28 Dose: 4 mg Phenytoin Sodium (Dilantin Er) 300 mg PO DAILY [facility] Last Admin: 10/08/18 09:17 Dose: 300 mg Potassium Chloride (Slow-K 8 Meq) 8 meq PO QAM-[facility] Last Admin: 10/08/18 09:18 Dose: 8 meq Promethazine HCl (Phenergan) 12.5 mg IM Q4H PRN PRN Reason: Nausea Promethazine HCl (Phenergan) 12.5 mg PO Q4H PRN PRN Reason: Nausea Promethazine HCl (Phenergan Suppository) 12.5 mg SD Q4H PRN PRN Reason: Nausea Sodium Chloride (Flush - Normal Saline) 10 ml IVF Q12HR [facility] Last Admin: 10/08/18 09:19 Dose: 10 ml Sodium Chloride (Flush - Normal Saline) 10 ml IVF PRN PRN PRN Reason: Saline Flush Last Admin: 10/05/18 04:03 Dose: 10 ml
--- NOTE | 2018-10-09 04:01 | PDOC.EVN ---
Event Note - Event Note Event Note: RN called - Pt fell without significant injuries. No head injury or LOC reported. Will cont to monitor. Add Neurochecks.
[2018-10-09 06:24] LABS: Anion Gap 11 mmol/L (10-20); BUN (Urea Nitrogen) 11 mg/dL (9.8-20.1); Calc. Creatinine Clearance 83 mL/min (70-130); Calcium 9.3 mg/dL (7.8-10.44); Carbon Dioxide 26 mmol/L (23-31); Chloride 105 mmol/L (98-107); Estimated GFR-MDRD Greater than 90; Glucose 116 mg/dL (83-110); Potassium 3.9 mmol/L (3.5-5.1); Sodium 138 mmol/L (136-145)
[2018-10-09 06:33] LABS: Hemoglobin 12.6 g/dL (12.0-16.0); Mean Corpuscular HGB CONC 33.6 g/dL (32.0-36.0); Mean Corpuscular Hemoglobin 32.3 pg (27.0-31.0); Mean Corpuscular Volume 96.2 fL (78.0-98.0); Mean Platelet Volume 6.7 fL (7.4-10.4); Platelet Count 173 thou/uL (130-400); RBC Distribution Width 12.3 % (11.5-14.5); Red Blood Cell (RBC) Count 3.89 mill/uL (4.20-5.40); White Blood Cell (WBC) Count 10.4 thou/uL (4.8-10.8)
[2018-10-09 06:34] LABS: Band 5 % (5-11); Eosinophils 1 % (0-10); Lymphocytes 8 % (21-51); MDiff Complete? YES; Monocytes 7 % (0-10); Neutrophil 79 % (42-75); Platelet Morphology Comment Appears Adequate
[2018-10-09] MEDS: Anastrozole 1 MG TAB PO SCH (10:05)
[2018-10-09] MEDS: Potassium Chloride 8 MEQ TAB PO SCH (10:05)
[2018-10-09] MEDS: Fish Oil 1,000 MG CAP PO SCH (10:06)
[2018-10-09] MEDS: Famotidine/PF 20 mg/2ml Vial SLOW IVP SCH (10:06)
[2018-10-09] MEDS: levETIRAcetam 500 MG TAB PO SCH (10:06)
[2018-10-09] MEDS: Enoxaparin Sodium 60 MG/0.6 ML SYRINGE SC SCH (10:06)
[2018-10-09] MEDS: Ascorbic Acid 500 mg Chewable Tablet PO SCH (10:06)
[2018-10-09] MEDS: Multivit, Therapeutic 1 TAB PO SCH (10:07)
[2018-10-09] MEDS: Magnesium Oxide 250 MG TAB PO SCH (10:07)
--- NOTE | 2018-10-09 10:29 | PRG ---
DATE OF SERVICE: 10/08/2018 Ms. Banks is resting comfortably in her bed. She is awake and interactive. She still has a profound hemiparesis. The plan is to move toward disposition. That has been approved, but will require bed availability. She can be transitioned to rehab at any time. Job ID: [id number]
--- NOTE | 2018-10-09 13:19 | PDOC.PN ---
- Subjective Encounter Start Date: 10/09/18 Encounter Start Time: 10:20 Subjective: awake, ate her breakfast -: responds well to verbal stimuli -: says she might have slipped and fallen yesterday - Objective MAR Reviewed: Yes Vital Signs & Weight: Vital Signs (12 hours) Temp Pulse Resp Pulse Ox 10/09/18 11:25 86 21 H 99 10/09/18 07:48 99.3 F 10/09/18 03:41 99.5 F Weight Admit Weight 144 lb Weight 142 lb 10.225 oz Most Recent Monitor Data Heart Rate from ECG 89 NIBP 138/69 NIBP BP-Mean 92 Respiration from ECG 26 SpO2 96 I&O: 10/08/18 10/09/18 10/10/18 06:59 06:59 06:59 Intake Total 600 Balance 600 Result Diagrams: 10/09/18 05:43 10/09/18 05:43 Phys Exam - Physical Examination HEENT: PERRLA, moist MMs surgical site looks clean, mild expectant post op edema Neck: no JVD, supple Respiratory: no wheezing, no rales Cardiovascular: RRR, no significant murmur Gastrointestinal: soft, no distention, positive bowel sounds Musculoskeletal: no edema, pulses present Neurological: moves all 4 limbs Psychiatric: normal affect, A&O x 3 Dx/Plan (1) DVT (deep venous thrombosis) Code(s): I82.409 - ACUTE EMBOLISM AND THOMBOS UNSP DEEP VN UNSP LOWER EXTREMITY Status: Acute Qualifiers: DVT location: lower extremity Affected thrombotic vein of extremity: popliteal Chronicity: acute Laterality: left Qualified Code(s): I82.432 - Acute embolism and thrombosis of left popliteal vein (2) Physical deconditioning Code(s): R53.81 - OTHER MALAISE Status: Acute (3) S/P resection of meningioma Code(s): Z98.890 - OTHER SPECIFIED POSTPROCEDURAL STATES; Z86.018 - PERSONAL HISTORY OF OTHER BENIGN NEOPLASM Status: Acute (4) Seizures Code(s): R56.9 - UNSPECIFIED CONVULSIONS Status: Acute Comment: on fosphenytoin and keppra, no recurrence, transitioned to oral meds (5) H/O malignant neoplasm of breast Code(s): Z85.3 - PERSONAL HISTORY OF MALIGNANT NEOPLASM OF BREAST Status: Chronic Comment: continue anostrazole - Plan hemostable -: continue lovenox full dose, dilantin, keppra -: nebs prn, fish oil, arimidex -: awaiting rehab placement * . Review of Systems - Medications/Allergies Allergies/Adverse Reactions: Allergies Allergy/AdvReac Type Severity Reaction Status Date / Time No Known Allergies Allergy Verified 09/23/18 14:50 Medications: Current Medications Acetaminophen (Tylenol) 650 mg PO Q4H PRN PRN Reason: Headache/Fever or Mild Pain Last Admin: 10/08/18 11:22 Dose: 650 mg Acetaminophen (Tylenol) 650 mg VA Q4H PRN PRN Reason: Headache/Fever or Pain1-3 Last Admin: 09/28/18 14:04 Dose: 650 mg Al Hydroxide/Mg Hydroxide (Maalox) 30 ml PO Q6H PRN PRN Reason: Heartburn or Indigestion Albuterol/Ipratropium (Duoneb) 3 ml EZPAP BID-RT [facility] Last Admin: 10/09/18 11:25 Dose: 3 ml Anastrozole (Arimidex) 1 mg PO QAM [facility] Last Admin: 10/09/18 10:05 Dose: 1 mg Ascorbic Acid (Vitamin C) 1,000 mg PO DAILY [facility] Last Admin: 10/09/18 10:06 Dose: 1,000 mg Diphenhydramine HCl (Benadryl) 50 mg PO Q6H PRN PRN Reason: Itching & Insomnia Diphenhydramine HCl (Benadryl) 50 mg IVP Q6H PRN PRN Reason: Itching & Insomnia Last Admin: 10/04/18 22:46 Dose: 50 mg Docusate Sodium (Colace) 100 mg PO BIDPRN PRN PRN Reason: Constipation Enoxaparin Sodium (Lovenox) 60 mg SC 0900,2100 [facility] Last Admin: 10/09/18 10:06 Dose: 60 mg Famotidine (Pepcid) 20 mg SLOW IVP Q12HR [facility] Last Admin: 10/09/18 10:06 Dose: 20 mg Fish Oil (Fish Oil) 1,000 mg PO DAILY [facility] Last Admin: 10/09/18 10:06 Dose: 1,000 mg Hydralazine HCl (Apresoline) 5 mg SLOW IVP Q15MIN PRN PRN Reason: SBP > 140 Last Admin: 10/03/18 19:13 Dose: 5 mg Sodium Chloride (Normal Saline 0.9%) 1,000 mls @ 0 mls/hr IV .Q0M [facility] Last Admin: 10/07/18 04:46 Dose: 1,000 mls Labetalol HCl (Labetalol Hcl) 10 mg SLOW IVP Q15MIN PRN PRN Reason: SBP > 140 Last Admin: 10/05/18 04:48 Dose: 10 mg Levetiracetam (Keppra) 1,500 mg PO BID [facility] Last Admin: 10/09/18 10:06 Dose: 1,500 mg Magnesium Oxide (Magnesium Oxide) 250 mg PO DAILY [facility] Last Admin: 10/09/18 10:07 Dose: 250 mg Multivitamins (Theragran) 1 tab PO DAILY [facility] Last Admin: 10/09/18 10:07 Dose: 1 tab Ondansetron HCl (Zofran) 4 mg SLOW IVP Q8H PRN PRN Reason: Nausea/Vomiting Last Admin: 09/26/18 21:28 Dose: 4 mg Phenytoin Sodium (Dilantin Er) 300 mg PO DAILY [facility] Last Admin: 10/09/18 10:07 Dose: 300 mg Potassium Chloride (Slow-K 8 Meq) 8 meq PO QAM-WM [facility] Last Admin: 10/09/18 10:05 Dose: 8 meq Promethazine HCl (Phenergan) 12.5 mg IM Q4H PRN PRN Reason: Nausea Promethazine HCl (Phenergan) 12.5 mg PO Q4H PRN PRN Reason: Nausea Promethazine HCl (Phenergan Suppository) 12.5 mg VA Q4H PRN PRN Reason: Nausea Sodium Chloride (Flush - Normal Saline) 10 ml IVF Q12HR [facility] Last Admin: 10/09/18 10:08 Dose: 10 ml Sodium Chloride (Flush - Normal Saline) 10 ml IVF PRN PRN PRN Reason: Saline Flush Last Admin: 10/05/18 04:03 Dose: 10 ml
[2018-10-09 15:01] VITALS: TEMP 99.4
[2018-10-09] MEDS: Acetaminophen 325 MG TAB PO PRN (15:24)
--- NOTE | 2018-10-09 15:44 | PRG ---
DATE OF SERVICE: 10/09/2018 SUBJECTIVE: Ms. Banks is doing well. Apparently, she got out of bed and fell, but did not hit her head. I am told she has no signs of head trauma. OBJECTIVE: HEAD: On exam, no bruising. VITAL SIGNS: She is afebrile. Heart rate 79, blood pressure 134/71, respiratory rate 18. LUNGS: Clear. HEART: Regular rhythm. ABDOMEN: Soft. LABORATORY DATA: White count 10.4, hemoglobin 12.6, platelets 173. Electrolytes are normal. IMPRESSION: 1. Status post resection of a meningioma. 2. 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 3. Distal lower extremity deep venous thrombosis, now anticoagulated. PLAN: I will keep her on Lovenox as long she is in the hospital and then consider switching her to another oral agent at the time of discharge. She appears to be stable at this time. Job ID: [id number]
--- NOTE | 2018-10-10 08:01 | PRG ---
DATE OF SERVICE: 10/08/2018 SUBJECTIVE: Christiana Banks remains stable. She has no new problems. OBJECTIVE: VITAL SIGNS: Her heart rates in the 80s, blood pressure 134/59, respiratory rates in the 20s. LUNGS: Clear. HEART: Regular rhythm. ABDOMEN: Soft. EXTREMITIES: Without asymmetry. IMPRESSION: Deep venous thrombosis that is distal. PLAN: We will anticoagulate her and then switch her to p.o. anticoagulants for probably 3 months since this is related to her stroke and her meningioma resection. We will continue supportive care. Job ID: [id number]
== END 2018-10-09 17:55 | DRG 25 ==
LOC: SURG A 08:16 → CCU 18:03 → IMCU/EMU 10-04 03:21
PROVIDERS: ADMIT Neurological Surgery; ATTEND Neurological Surgery
PROC: 00B10ZZ Excision of Cerebral Meninges, Open Approach (ICD-10-PCS; principal; 2018-09-26)
DX: D32.0 Benign neoplasm of cerebral meninges (principal); I63.311 Cerebral infarction due to thrombosis of right middle cerebral artery; J18.1 Lobar pneumonia, unspecified organism; G93.6 Cerebral edema; I97.821 Postprocedural cerebrovascular infarction following other surgery; G81.94 Hemiplegia, unspecified affecting left nondominant side; G93.40 Encephalopathy, unspecified; I82.432 Acute embolism and thrombosis of left popliteal vein; R29.810 Facial weakness; R47.1 Dysarthria and anarthria; R13.10 Dysphagia, unspecified; E83.52 Hypercalcemia; G51.4 Facial myokymia; R56.9 Unspecified convulsions; Z85.3 Personal history of malignant neoplasm of breast; Y83.8 Other surgical procedures as the cause of abnormal reaction of the patient, or of later complication, without mention of misadventure at the time of the procedure
CPT/HCPCS: 36415; 36416; 70450; 71045; 74018; 80048; 80177; 80185; 82805; 85007; 85025; 85027; 86850; 86900; 86901; 88307; 88331; 88334; 88341; 88342; 88360; 93005; 93010; 93970; 94640; 95816; 95819; C1713; J0360; J1100; J1200; J1650; J1953; J2001; J2060; J2150; J2270; J2405; J2704; J3010; J3490; J7050; J7620; Q2009; S0028

== ENCOUNTER 2018-10-21 16:07 | Day surgery (SDC) | payer MEDICARE ==
[~2018-10-21 16:07] MED LIST changes: -Gadobenate Dimeglumine 529 MG/1 ML (20ML VIAL) ONE; +Iopamidol 370 76% 50 ML VIAL FS ONE
--- NOTE | 2018-10-21 18:40 | OP ---
DATE OF PROCEDURE: 10/21/2018 PROCEDURE PERFORMED: [employer] inferior vena cava filter placement. PREOPERATIVE DIAGNOSIS: Deep venous thrombosis with contraindication to anticoagulation. POSTOPERATIVE DIAGNOSIS: Deep venous thrombosis with contraindication to anticoagulation. ANESTHESIA: 1% lidocaine, local anesthesia. INDICATIONS: The patient is a 73-year-old woman, who fairly recently underwent a craniotomy for resection of meningioma and empiric venous Doppler about a week postop demonstrated a DVT in her left popliteal vein and she was started on anticoagulation. Today, a CT scan of the head suggested subdural hemorrhage and she was referred for vena cava filtration placement as her anticoagulation is to now be stopped. FINDINGS: Right renal vein confluence with the inferior cava about the lower level of L1 in the left renal vein slightly cephalad to that. The cephalad tip of the device was positioned at about the midbody of L2. Contrast used with a total of 5 mL of Isovue. Fluoro time was 1.4 minutes. NARRATIVE REPORT: After informed consent was obtained, the patient was positioned on the company laborer table and her groins were prepped and draped in sterile fashion. 1% lidocaine was used to infiltrate the skin and subcutaneous tissues just medial to the palpable femoral pulse. Ultrasonography was used to identify the common femoral artery and vein and to verify the compressibility of the right femoral vein. The femoral vein was then cannulated and a guidewire placed through it. Fluoroscopy confirmed intravenous positioning. The skin was nicked and then the tract was dilated and a sheath placed over the dilator. The tip of the dilator was positioned at about the bottom of L2 and 5 mL of contrast was used to perform inferior vena cavography. This nicely demonstrated the confluence of both renal veins with the vena cava and the vena cava to be of acceptable size. The dilator was removed and the device was advanced through the sheath as the tip of the device reached the midportion of the body of L2. The sheath was withdrawn to deploy the device. The sheath was then removed and hemostasis achieved with direct pressure. Job ID: [id number]
--- NOTE | 2018-10-22 00:47 | CON ---
DATE OF CONSULTATION: 10/21/2018 ADDITIONAL REQUESTING PHYSICIANS: Neurosurgeon, Dr. Abad and Neurology, Dr. Paez. CHIEF COMPLAINT: Deep venous thrombosis. HISTORY OF PRESENT ILLNESS: The patient is a 73-year-old woman, who about 2 weeks ago underwent resection of a meningioma through a right frontotemporal craniotomy and had problems with perioperative CVA and seizures postoperatively. The patient had an empiric venous ultrasound of her legs at about a week postoperatively because of her lack of activity. She was found to have DVT involving the left popliteal and peroneal veins. She was started on anticoagulation prior to discharge. Today, she underwent CT scanning, which suggested some subdural hematoma and I was contacted about placing a vena cava filter since she is a recent perioperative with DVT. Although, vascular ultrasound done today shows significant improvement in her DVT, there is still residual thrombus in the peroneal system. PAST MEDICAL HISTORY: Significant for asthma and mastectomy. CURRENT MEDICATIONS: 1. Keppra. 2. Hydralazine p.r.n. 3. Zoledronic acid. 4. Selenium. 5. Dilantin. 6. Magnesium. 7. Labetalol p.r.n. 8. 60 mg b.i.d. of Lovenox. 9. Arimidex. 10. Vitamin C. ALLERGIES: SHE DENIES ANY MEDICAL ALLERGIES. SOCIAL HISTORY: She does not smoke. REVIEW OF SYSTEMS: Not obtainable. PHYSICAL EXAMINATION: GENERAL: She is somewhat lethargic, somewhat confused woman. VITAL SIGNS: Heart rate is 81, blood pressure 118/58, room air O2 saturations are 95%. HEENT: She has fairly fresh surgical incision, status post frontotemporal craniotomy. LUNGS: She has clear breath sounds. HEART: Regular rate and rhythm. ABDOMEN: Soft and nontender. EXTREMITIES: She has no obvious edema or any calf tenderness. LABORATORY DATA: From yesterday showed a hemoglobin of 12.9 and platelets 105,000. Potassium is 4.2 and creatinine 0.62. INR was 2.2 today and 1.7 yesterday. IMPRESSION AND RECOMMENDATIONS: I think it is a reasonable consideration for vena cava filtration placement. The patient still has some residual thrombus. She about 2 weeks ago had documented popliteal thrombus. Even though that is since resolved, there is presumably intimal defect associated with that DVT, which would put her at risk for recurrence. I will plan on IVC filter placement as it is apt to be considerable length of time before she can be safely anticoagulated. There is probably little point in attempting of removable filter. Job ID: [id number]
== END 2018-10-21 20:22 | disposition home or self-care (01) ==
LOC: CCL 16:07
PROVIDERS: ATTEND Thoracic Surgery (Cardiothoracic Vascular Surgery)
PROC: 06H03DZ Insertion of Intraluminal Device into Inferior Vena Cava, Percutaneous Approach (ICD-10-PCS; principal; 2018-10-21)
DX: I82.432 Acute embolism and thrombosis of left popliteal vein (principal); I82.492 Acute embolism and thrombosis of other specified deep vein of left lower extremity; Z86.73 Personal history of transient ischemic attack (TIA), and cerebral infarction without residual deficits; Z79.899 Other long term (current) drug therapy; Z98.890 Other specified postprocedural states
CPT/HCPCS: 37191; C1769; Q9967

== ENCOUNTER 2018-11-30 10:26 | Emergency (ER) | payer MEDICARE ==
[2018-11-30 11:42] LABS: #Eosinphils 0.1 thou/uL (0.0-0.7); #Monocytes 0.6 thou/uL (0.11-0.59); #Neutrophils 4.3 thou/uL (1.40-6.50); %Basophils 0.7 % (0.0-1.0); %Eosinophils 1.5 % (0.0-10.0); %Lymphocytes 16.8 % (21.0-51.0); %Monocytes 10.4 % (0.0-10.0); %Neutrophils 70.5 % (42.0-75.0); Hemoglobin 15.2 g/dL (12.0-16.0); Mean Corpuscular HGB CONC 33.4 g/dL (32.0-36.0); Mean Corpuscular Volume 95.6 fL (78.0-98.0); Mean Platelet Volume 7.4 fL (7.4-10.4); Platelet Count 194 thou/uL (130-400); RBC Distribution Width 11.9 % (11.5-14.5); Red Blood Cell (RBC) Count 4.76 mill/uL (4.20-5.40); White Blood Cell (WBC) Count 6.1 thou/uL (4.8-10.8)
[2018-11-30 12:06] LABS: ALT (SGPT) 17 U/L (8-55); AST (SGOT) 26 U/L (5-34); Albumin 4.2 g/dL (3.4-4.8); Alkaline Phosphatase 89 U/L (40-150); Anion Gap 12 mmol/L (10-20); BUN (Urea Nitrogen) 14 mg/dL (9.8-20.1); Bilirubin, Total 0.3 mg/dL (0.2-1.2); Calc. Creatinine Clearance 0 mL/min (70-130); Calcium 10.7 mg/dL (7.8-10.44); Carbon Dioxide 28 mmol/L (23-31); Chloride 99 mmol/L (98-107); Estimated GFR-MDRD 69; Globulin 2.9 g/dL (2.4-3.5); Glucose 156 mg/dL (83-110); Potassium 4.1 mmol/L (3.5-5.1); Protein, Total 7.1 g/dL (6.0-8.3); Sodium 135 mmol/L (136-145)
--- NOTE | 2018-11-30 12:35 | CT ---
CT BRAIN: DATE: 11/30/2018. COMPARISON: Comparison to previous exam from 10/21/2018. HISTORY: Altered mental status. FINDINGS: The patient has had a previous right frontal craniotomy. Some encephalomalacic and gliotic changes s een in the right frontal lobe and anterior aspect of the right temporal lobe. Findings suggest possi ble residual gliotic and encephalomalacic changes. No acute intracranial abnormality is seen. When compared to the previous CT from 10/21/2018, lateral left frontal subdural collection has resolve d. IMPRESSION: No acute intracranial abnormality is seen. Postoperative and gliotic changes seen in the right front al and temporal lobes. POS: [facility]
[2018-11-30] MEDS ORDERED: Acetaminophen 325 MG TAB ONE (13:28)
== END 2018-11-30 13:52 | disposition home or self-care (01) ==
LOC: ERS 10:26
DX: G40.909 Epilepsy, unspecified, not intractable, without status epilepticus (principal)
CPT/HCPCS: 36415; 70450; 80053; 80185; 85025

== ENCOUNTER 2018-12-08 07:56 | Inpatient (IN) | payer MEDICARE ==
--- NOTE | 2018-12-08 09:11 | CT ---
Exam: CT brain without contrast HISTORY: Altered mental status and seizures COMPARISON: 11/30/2018 TECHNIQUE: Multiple contiguous axial images were obtained and a CT of the brain without contrast. FINDINGS: Stable encephalomalacia and gliotic changes are seen in the right frontal lobe. The patient is status post craniotomy. A small amount of pneumocephalus is seen in the right frontal region. There is no evidence of hydrocephalus, intracranial hemorrhage, or extra-axial fluid collection. The calvarium and overlying soft tissues are unremarkable. The visualized paranasal sinuses and masto id air cells are well aerated. IMPRESSION: Stable exam
--- NOTE | 2018-12-08 09:38 | RAD ---
EXAM: Single view of the chest HISTORY: Altered mental status COMPARISON: 10/02/2018 FINDINGS: Single view of the chest shows a normal sized cardiomediastinal silhouette. Atheroscleroti c calcification are seen in the aorta. There is no evidence of consolidation, mass, or pleural effusion. The bones are unremarkable. Surgical clips project over the left chest wall. IMPRESSION: No evidence of acute cardiopulmonary disease
[2018-12-08 09:43] LABS: Acetaminophen Less than 6.0 mcg/mL (10.0-30.0); Alcohol Less than 10 mg/dL (Less than 10); CK (CPK) 144 U/L (29-168); Salicylate Less than 8.0 mg/dL (15.0-30.0)
[2018-12-08 09:53] LABS: #Lymphocytes 0.7 thou/uL (1.20-3.40); #Monocytes 0.9 thou/uL (0.11-0.59); #Neutrophils 8.9 thou/uL (1.40-6.50); %Basophils 0.2 % (0.0-1.0); %Eosinophils 0.1 % (0.0-10.0); %Lymphocytes 6.2 % (21.0-51.0); %Monocytes 8.4 % (0.0-10.0); %Neutrophils 85.1 % (42.0-75.0); Hemoglobin 13.5 g/dL (12.0-16.0); Mean Corpuscular HGB CONC 33.6 g/dL (32.0-36.0); Mean Corpuscular Volume 95.3 fL (78.0-98.0); Platelet Count 152 thou/uL (130-400); RBC Distribution Width 12.1 % (11.5-14.5); Red Blood Cell (RBC) Count 4.21 mill/uL (4.20-5.40); White Blood Cell (WBC) Count 10.4 thou/uL (4.8-10.8)
[2018-12-08 09:58] LABS: INR-International Normal Ratio 1.1; Prothrombin Time 14.6 SEC (12.0-14.7)
[2018-12-08 09:59] LABS: PTT 25.8 SEC (22.9-36.1)
[2018-12-08 10:05] LABS: Bilirubin Negative (Negative); Blood, Urine Negative (Negative); Clarity CLOUDY (Clear); Glucose, Urine (Dipstick) Negative (Negative); Leukocyte Trace (Negative); Nitrite Negative (Negative); Protein, Urine (Dipstick) 100 mg/dL (Neg-Trace); Specific Gravity, Urine 1.026 (1.002-1.036); Urobilinogen 0.2 mg/dL (0.2-1.0); pH, Urine 5.5 (5.0-9.0)
[2018-12-08 10:08] LABS: Bacteria/HPF None Seen HPF (None Seen)
[2018-12-08 10:08] LABS: ALT (SGPT) 19 U/L (8-55); AST (SGOT) 26 U/L (5-34); Albumin 4.2 g/dL (3.4-4.8); Alkaline Phosphatase 114 U/L (40-150); Anion Gap 21 mmol/L (10-20); BUN (Urea Nitrogen) 19 mg/dL (9.8-20.1); Bilirubin, Total 0.8 mg/dL (0.2-1.2); Calc. Creatinine Clearance 0 mL/min (70-130); Calcium 10.5 mg/dL (7.8-10.44); Carbon Dioxide 18 mmol/L (23-31); Chloride 98 mmol/L (98-107); Estimated GFR-MDRD 58; Glucose 212 mg/dL (83-110); Potassium 4.3 mmol/L (3.5-5.1); Protein, Total 7.2 g/dL (6.0-8.3); Sodium 133 mmol/L (136-145)
[2018-12-08 10:17] LABS: Pathc Cast-AUWi Flag 5.98 (0-2.49)
[2018-12-08 10:23] LABS: Amphetamine Not Detected (NotDetected); Barbiturates Screen Detected (NotDetected); Benzodiazepine Screen Not Detected (NotDetected); Cocaine Metabolite Screen Not Detected (NotDetected); Medtox Control Line Valid? VALID (VALID); Medtox Reader # READER 4; Methadone Not Detected (NotDetected); Methamphetamine Not Detected (NotDetected); Opiate Screen Not Detected (NotDetected); Oxycodone Screen Not Detected (NotDetected); Phencyclidine (PCP) Not Detected (NotDetected); THC/Cannabinoid Screen Not Detected (NotDetected); Tricyclic Screen Not Detected (NotDetected)
[2018-12-08 10:32] LABS: Other Casts/LPF 4-6 COARSE GRAN LPF (0-3 Hyaline)
[2018-12-08] MEDS ORDERED: Bisacodyl 5 MG TAB PO PRN (12:19)
[2018-12-08] MEDS ORDERED: cefTRIAXone\\ROCEPHIN 1 GM in Sodium Chloride 0.9% 100 ML IVPB SCH (12:30)
[2018-12-08] MEDS ORDERED: Lorazepam 2 MG/ML VIAL ONE (13:06)
--- NOTE | 2018-12-08 13:31 | HP ---
PRIMARY CARE PROVIDER: Dr. Jett Parada. CHIEF COMPLAINT: Confusion. HISTORY OF PRESENT ILLNESS: Ms. Banks is a pleasant 73-year-old lady, who was seen at [facility] on December 08, 2018. The patient is able to provide only some history. Collateral history was obtained from her by the bedside, discussion with emergency room physician, and review of electronic medical records. Ms. Banks was hospitalized at [facility] from September 26 to of this year for meningioma resection. The surgical course was complicated by postoperative CVA in the region of tumor excision. She was also having seizures. She was started on phenytoin and Keppra. She was discharged to inpatient rehab. From there, she was discharged home. She has a walker at home, but has not needed it for a while. A little over three weeks ago, she started having episodes of confusion and also difficulty ambulating. At that time, her phenytoin was stopped, because it was felt that phenytoin could be causing the symptoms. She did not really improve. Phenytoin was restarted one week ago. Yesterday, she was started on lamotrigine. She took one dose last night. She was brought to the emergency room, because she was not really improving. She reportedly continues to have seizures. These appear to be movements of her extremities, sometimes isolated extremities. She has also been having on and off episodes of confusion. The episodes are usually present even prior to seizure and also seen following the seizure. REVIEW OF SYSTEMS: All other systems reviewed and found to be negative. PAST MEDICAL HISTORY: Seizures, brain tumor, breast cancer. PAST SURGICAL HISTORY: Brain tumor removal, double mastectomy, cholecystectomy, tonsillectomy. SOCIAL HISTORY: The patient denies tobacco use, alcohol use, or recreational drug use. FAMILY HISTORY: No family history of coronary artery disease. ALLERGIES: NO KNOWN DRUG ALLERGIES. CURRENT MEDICATIONS: 1. Lamotrigine 25 mg daily, started yesterday. 2. Phenytoin 100 mg daily. 3. Magnesium oxide 250 mg daily. 4. Keppra 750 mg 2 times a day. 5. Prednisone 50 mg daily. PHYSICAL EXAMINATION: GENERAL: On examination, Ms. Banks is awake and alert, not in acute distress. VITAL SIGNS: Blood pressure is 121/72, pulse 93, respiratory rate 16, and oxygen saturation 98% on room air. She is afebrile. EYES: No scleral icterus, no conjunctival pallor. ENT: Moist mucosal membranes. No oropharyngeal erythema or exudates. NECK: Supple, nontender, trachea is midline. RESPIRATORY: Accessory muscles of breathing are not active. Chest wall movements are symmetric bilaterally. LUNGS: Clear to auscultation without wheeze, rhonchi, or crepitations. CARDIOVASCULAR: S1 and S2 are heard, regular. Peripheral pulses palpable. NEUROLOGIC: Status post craniotomy on the right frontal side. Cranial nerves 2 through 12 are intact. No focal motor or sensory deficits. Deep tendon reflexes 2+. Plantars downgoing bilaterally. She occasionally has shaky movements in her left lower extremity. MUSCULOSKELETAL: Power is 4+/5 in all 4 extremities. SKIN: No rashes or subcutaneous nodules. LYMPHATIC: No cervical lymphadenopathy. PSYCHIATRIC: Normal mood, normal affect, the patient is oriented to person only, not to place or time. LABORATORY DATA: Ms. Banks's labs and investigations were reviewed. I reviewed her electrocardiogram, which shows normal sinus rhythm, no ST changes to suggest an acute coronary syndrome. I also reviewed her chest x-ray, which does not show any pulmonary infiltrates. She also had noncontrast CT scan of the brain, which was a stable exam when compared to the CT from November 30, 2018. She has an unremarkable CBC, INR 1.1, decreased sodium of 133, decreased carbon dioxide of 18, elevated lactic acid level of 3.5, normal creatinine, elevated calcium of 10.5, normal LFTs, normal troponin-I, normal CK and urinalysis that is negative for nitrite, but positive for trace amount of leukocyte esterase. Urine drug screen was positive for barbiturates. ASSESSMENT AND PLAN: Ms. Banks is a pleasant 73-year-old lady, who was seen at [facility] on December 08, 2018. Her problem list includes: 1. Acute metabolic encephalopathy: Ms. Banks is presenting with acute metabolic encephalopathy, etiology unclear at this time. Differential diagnosis is wide and includes infection, medication induced and other causes. She will be admitted to the hospital for further management. 2. Urinary tract infection: Suspected, based on leukocyte esterase seen on urinalysis. We will start her on empiric ceftriaxone and follow urine cultures. Also order blood cultures. 3. Seizures: The patient appears to have ongoing seizures. Currently awaiting phenytoin and Keppra levels. We will consult Neurology for opinion and help with management. 4. History of brain tumor: The patient is status post surgery. CT scan today did not show any acute issues. We will continue to monitor. Many thanks for allowing me to participate in your patient's care. Please feel free to contact me with any questions or concerns. LEVEL OF RISK: High. LEVEL OF COMPLEXITY: High. Job ID: [id number]
[2018-12-08 14:06] LABS: Lactic Acid 1.5 mmol/L (0.5-2.2)
[2018-12-08 14:50] VITALS: BMI 22.2
[2018-12-08] MEDS: cefTRIAXone\\ROCEPHIN 1 GM in Sodium Chloride 0.9% 100 ML IVPB SCH (16:48)
[2018-12-08] MEDS: levETIRAcetam 500 MG TAB PO SCH (20:58)
--- NOTE | 2018-12-08 23:19 | CON ---
DATE OF CONSULTATION: 12/08/2018 CONSULTING SERVICES: Hospitalist. HISTORY OF PRESENT ILLNESS: Ms. Banks has been readmitted due to recurrent seizure activity. Over the recent past, she has been followed in the office by my nurse practitioner. She has been having some continued confusion throughout her day. We were attempting to make anticonvulsant adjustments to try to bring her focal seizures under better control. She was initially treated with some additional Dilantin. She did not seem to have an improvement. Her level was found to be subtherapeutic and she was given a loading dose. Despite this, she continued to have some confusion and some intermittent focal seizures involving the right side of the body. She came into the ER and is now admitted to the floor. At this point, she reports she is feeling a little tired, but otherwise is not in any pain. She is oriented to person and place. She is able to follow commands appropriately. She had no focal deficits on exam. She is a bit tremulous, but otherwise no seizure activity was noted. I have suggested we increase her Keppra to 1000 mg twice a day and continue the Dilantin 300 mg a day for the time being. We will see how she responds to this combination. Job ID: [id number]
[2018-12-09] MEDS ORDERED: Loratadine 10 MG TAB PO PRN (07:06)
[2018-12-09] MEDS ORDERED: Cepastat Lozenges 1 LOZ PO PRN (07:06)
[2018-12-09] MEDS ORDERED: Eucerin (Mineral Oil/Petrolatum,White) 30 gm Jar TOP PRN (07:06)
[2018-12-09] MEDS ORDERED: hydrALAZINE 20 MG/ML VIAL SLOW IVP PRN (07:06)
[2018-12-09] MEDS ORDERED: Diabetic Tussin 200 MG/10 ML UDCUP PO PRN (07:06)
[2018-12-09] MEDS ORDERED: Ondansetron ODT 4 MG TAB SL PRN (07:06)
[2018-12-09] MEDS ORDERED: Loperamide HCl 2 MG CAP PO PRN (07:06)
[2018-12-09] MEDS ORDERED: Artificial Tears 18 DROP/0.9 ML EA EYE PRN (07:06)
[2018-12-09] MEDS ORDERED: Zolpidem Tartrate 5 MG TAB PO PRN (07:06)
[2018-12-09] MEDS ORDERED: Ondansetron PF 4 MG/2 ML Vial IVP PRN (07:06)
[2018-12-09] MEDS ORDERED: Bisacodyl 10 MG SUPP PR PRN (07:06)
[2018-12-09] MEDS ORDERED: Sodium Chloride 0.65% Nasal 44 ML BOT EA NARE PRN (07:06)
[2018-12-09] MEDS ORDERED: Calcium Carbonate 500 MG ChewTAB PO PRN (07:06)
[2018-12-09] MEDS: levETIRAcetam 500 MG TAB PO SCH ×2 (08:16→20:10)
[2018-12-09] MEDS: Magnesium Oxide 250 MG TAB PO SCH (08:16)
[2018-12-09] MEDS: Cyanocobalamin (Vitamin B-12) 1,000 MCG TAB PO SCH (08:16)
[2018-12-09] MEDS: Folic Acid 1 MG TAB PO SCH (08:17)
[2018-12-09 08:26] LABS: #Lymphocytes 0.8 thou/uL (1.20-3.40); #Monocytes 1.2 thou/uL (0.11-0.59); #Neutrophils 7.2 thou/uL (1.40-6.50); %Basophils 0.3 % (0.0-1.0); %Eosinophils 0.5 % (0.0-10.0); %Lymphocytes 8.5 % (21.0-51.0); %Neutrophils 77.8 % (42.0-75.0); Hemoglobin 12.4 g/dL (12.0-16.0); Mean Corpuscular HGB CONC 33.7 g/dL (32.0-36.0); Mean Corpuscular Hemoglobin 32.2 pg (27.0-31.0); Mean Corpuscular Volume 95.6 fL (78.0-98.0); Mean Platelet Volume 7.7 fL (7.4-10.4); Platelet Count 136 thou/uL (130-400); RBC Distribution Width 12.1 % (11.5-14.5); Red Blood Cell (RBC) Count 3.86 mill/uL (4.20-5.40); White Blood Cell (WBC) Count 9.3 thou/uL (4.8-10.8)
[2018-12-09 08:44] LABS: Anion Gap 11 mmol/L (10-20); BUN (Urea Nitrogen) 13 mg/dL (9.8-20.1); Calc. Creatinine Clearance 70 mL/min (70-130); Calcium 9.7 mg/dL (7.8-10.44); Carbon Dioxide 28 mmol/L (23-31); Chloride 99 mmol/L (98-107); Estimated GFR-MDRD 81; Glucose 118 mg/dL (83-110); Sodium 134 mmol/L (136-145)
--- NOTE | 2018-12-09 10:39 | PRG ---
DATE OF SERVICE: 12/09/2018 Ms. Banks had an uneventful night. She feels like she is back to her normal state. She has not had any further seizures. She had no other new complaints today. She has been tolerating the increased dose of Keppra. I would go ahead and discharge her shortly and continue the Keppra at 1000 mg twice a day and Dilantin at 300 mg a day. Follow up with her in the office. Job ID: [id number]
--- NOTE | 2018-12-09 11:09 | PDOC.PN ---
- Subjective Encounter Start Date: 12/09/18 Encounter Start Time: 07:30 -: old records requested/rev Patient seen and examined. No new complaints. No overnight events per pt's she is back to baseline, she is weak, no fever, no seizure - Objective Resuscitation Status - Order Detail: 12/08/18 12:19 Resuscitation Status Routine Resuscitation Status: FULL: Full Resuscitation Discussed with: patient and MAR Reviewed: Yes Vital Signs & Weight: Vital Signs (12 hours) Temp Pulse Resp BP BP Pulse Ox 12/09/18 08:00 95 12/09/18 07:58 98.3 F 86 20 140/71 95 12/09/18 03:50 98.5 F 86 20 129/80 96 12/09/18 00:14 99.4 F 84 20 147/74 H 95 Weight Weight 138 lb I&O: 12/08/18 12/09/18 12/10/18 06:59 06:59 06:59 Intake Total 350 Output Total 500 Balance -150 Result Diagrams: 12/09/18 08:07 12/09/18 08:07 Radiology Reviewed by me: Yes EKG Reviewed by me: Yes (nsr) Phys Exam - Physical Examination Constitutional: NAD HEENT: PERRLA, moist MMs, sclera anicteric Neck: no JVD, supple Respiratory: no wheezing, no rales, no rhonchi Cardiovascular: RRR, no significant murmur, no rub Gastrointestinal: soft, non-tender, no distention, positive bowel sounds Musculoskeletal: no edema, pulses present Neurological: non-focal, normal sensation Lymphatic: no nodes Psychiatric: normal affect, A&O x 3 Skin: no rash, normal turgor Dx/Plan (1) Encephalopathy acute Code(s): G93.40 - ENCEPHALOPATHY, UNSPECIFIED Status: Acute Comment: now improved to baseline (2) UTI (urinary tract infection) Status: Acute Comment: on rocephin (3) H/O malignant neoplasm of breast Code(s): Z85.3 - PERSONAL HISTORY OF MALIGNANT NEOPLASM OF BREAST Status: Chronic Comment: (4) H/O meningioma of the brain Code(s): Z86.011 - PERSONAL HISTORY OF BENIGN NEOPLASM OF THE BRAIN Status: Chronic (5) Seizure disorder Code(s): G40.909 - EPILEPSY, UNSP, NOT INTRACTABLE, WITHOUT STATUS EPILEPTICUS Status: Chronic - Plan cont current plan of care, plan discussed w/ family, continue antibiotics, PT/OT * start PT/OT * continue keppra 1000 mg po bid, dilantin 300 mg po daily as per neurology recommendation * medication reviewed as below * symptomatic treatment * add folic acid and vitamin B12 * discussed with . Review of Systems - Review of Systems ENT: negative: Ear Pain, Ear Discharge, Nose Pain, Nose Discharge, Nose Congestion, Mouth Pain, Mouth Swelling, Throat Pain, Throat Swelling, Other Respiratory: negative: Cough, Dry, Shortness of Breath, Hemoptysis, SOB with Excertion, Pleuritic Pain, Sputum, Wheezing Cardiovascular: negative: chest pain, palpitations, orthopnea, paroxysmal nocturnal dyspnea, edema, light headedness, other Gastrointestinal: negative: Nausea, Vomiting, Abdominal Pain, Diarrhea, Constipation, Melena, Hematochezia, Other Genitourinary: negative: Dysuria, Frequency, Incontinence, Hematuria, Retention , Other Musculoskeletal: negative: Neck Pain, Shoulder Pain, Arm Pain, Back Pain, Hand Pain, Leg Pain, Foot Pain, Other - Medications/Allergies Allergies/Adverse Reactions: Allergies Allergy/AdvReac Type Severity Reaction Status Date / Time No Known Allergies Allergy Verified 12/08/18 14:38 Medications: Current Medications Acetaminophen (Tylenol) 650 mg PO Q4H PRN PRN Reason: Headache/Fever/Mild Pain (1-3) Artificial Tears (Tears Naturale) 2 drop EA EYE PRN PRN PRN Reason: Dry Eyes Bisacodyl (Dulcolax) 10 mg PO DAILYPRN PRN PRN Reason: Constipation Bisacodyl (Dulcolax) 10 mg [place] DAILYPRN PRN PRN Reason: Constipation Cyanocobalamin (Vitamin B-12) 1,000 mcg PO DAILY [facility] Last Admin: 12/09/18 08:16 Dose: 1,000 mcg Folic Acid (Folvite) 1 mg PO DAILY [facility] Last Admin: 12/09/18 08:17 Dose: 1 mg Guaifenesin (Robitussin Sf) 200 mg PO Q4H PRN PRN Reason: Cough Hydralazine HCl (Apresoline) 10 mg SLOW IVP Q4H PRN PRN Reason: SBP > 180 and HR < 70 Ceftriaxone Sodium 1 gm/ (Sodium Chloride) 100 mls @ 200 mls/hr IVPB 1600 [facility] Last Admin: 12/08/18 16:48 Dose: 100 mls Levetiracetam (Keppra) 1,000 mg PO BID [facility] Last Admin: 12/09/18 08:16 Dose: 1,000 mg Loperamide HCl (Imodium) 2 mg PO PRN PRN PRN Reason: Diarrhea/Loose Stools Loratadine (Claritin) 10 mg PO DAILYPRN PRN PRN Reason: Sinus Symptoms Magnesium Oxide (Magnesium Oxide) 250 mg PO DAILY [facility] Last Admin: 12/09/18 08:16 Dose: 250 mg Mineral Oil/White Petrolatum (Eucerin Cream) 0 gm TOP BIDPRN PRN PRN Reason: Dry Skin Ondansetron HCl (Zofran Odt) 4 mg SL Q6H PRN PRN Reason: Nausea/Vomiting Ondansetron HCl (Zofran) 4 mg IVP Q6H PRN PRN Reason: Nausea/Vomiting Phenytoin Sodium (Dilantin Er) 300 mg PO DAILY [facility] Last Admin: 12/09/18 08:16 Dose: 300 mg Sodium Chloride ([place] Nasal [place] 0.65%) 0 ml EA NARE QIDPRN PRN PRN Reason: Nasal Congestion Throat Lozenges (Cepastat Lozenges) 1 adelfo PO Q2H PRN PRN Reason: Sore Throat Zolpidem Tartrate (Ambien) 5 mg PO HSPRN PRN PRN Reason: Insomnia
[2018-12-09] MEDS: Acetaminophen 325 MG TAB PO PRN (13:38)
[2018-12-09] MEDS: cefTRIAXone\\ROCEPHIN 1 GM in Sodium Chloride 0.9% 100 ML IVPB SCH (16:12)
[2018-12-10] MEDS: Magnesium Oxide 250 MG TAB PO SCH (09:33)
[2018-12-10] MEDS: Folic Acid 1 MG TAB PO SCH (09:33)
[2018-12-10] MEDS: levETIRAcetam 500 MG TAB PO SCH ×2 (09:33→20:46)
[2018-12-10] MEDS: Cyanocobalamin (Vitamin B-12) 1,000 MCG TAB PO SCH (09:34)
--- NOTE | 2018-12-10 10:08 | PDOC.PN ---
- Subjective Encounter Start Date: 12/10/18 Encounter Start Time: 07:10 pt is weak, today not feeling well subjectively, her apatite is less, no fever, no seizure - Objective Resuscitation Status - Order Detail: 12/08/18 12:19 Resuscitation Status Routine Resuscitation Status: FULL: Full Resuscitation Discussed with: patient and MAR Reviewed: Yes Vital Signs & Weight: Vital Signs (12 hours) Temp Pulse Resp BP Pulse Ox 12/10/18 07:39 97.6 F 92 18 141/73 H 96 12/10/18 04:00 98.9 F 90 16 148/73 H 94 L 12/10/18 00:00 98.7 F 91 16 140/77 96 Weight Weight 138 lb I&O: 12/09/18 12/10/18 12/11/18 06:59 06:59 06:59 Intake Total 350 636 Output Total 500 Balance -150 636 Result Diagrams: 12/09/18 08:07 12/09/18 08:07 EKG Reviewed by me: Yes Phys Exam - Physical Examination Constitutional: NAD HEENT: PERRLA, moist MMs, sclera anicteric Neck: no JVD, supple Respiratory: no wheezing, no rales, no rhonchi Cardiovascular: RRR, no significant murmur, no rub Gastrointestinal: soft, non-tender, no distention, positive bowel sounds Musculoskeletal: no edema, pulses present Neurological: moves all 4 limbs Lymphatic: no nodes Psychiatric: normal affect Skin: no rash, normal turgor Dx/Plan (1) Encephalopathy acute Code(s): G93.40 - ENCEPHALOPATHY, UNSPECIFIED Status: Acute Comment: now improved to baseline (2) UTI (urinary tract infection) Status: Acute Comment: on rocephin (3) H/O malignant neoplasm of breast Code(s): Z85.3 - PERSONAL HISTORY OF MALIGNANT NEOPLASM OF BREAST Status: Chronic Comment: (4) H/O meningioma of the brain Code(s): Z86.011 - PERSONAL HISTORY OF BENIGN NEOPLASM OF THE BRAIN Status: Chronic (5) Seizure disorder Code(s): G40.909 - EPILEPSY, UNSP, NOT INTRACTABLE, WITHOUT STATUS EPILEPTICUS Status: Chronic - Plan cont current plan of care, plan discussed w/ family, continue antibiotics, PT/OT , case management social worker * continue rocephin * spoke with pt and , they are ok with rehab placement if approved * medication reviewed as below * symptomatic treatment * continue anup mag[place] for now. Review of Systems - Review of Systems Constitutional: weakness. negative: fever, chills, sweats, malaise, other ENT: negative: Ear Pain, Ear Discharge, Nose Pain, Nose Discharge, Nose Congestion, Mouth Pain, Mouth Swelling, Throat Pain, Throat Swelling, Other Respiratory: negative: Cough, Dry, Shortness of Breath, Hemoptysis, SOB with Excertion, Pleuritic Pain, Sputum, Wheezing Cardiovascular: negative: chest pain, palpitations, orthopnea, paroxysmal nocturnal dyspnea, edema, light headedness, other Gastrointestinal: negative: Nausea, Vomiting, Abdominal Pain, Diarrhea, Constipation, Melena, Hematochezia, Other Genitourinary: negative: Dysuria, Frequency, Incontinence, Hematuria, Retention , Other Musculoskeletal: negative: Neck Pain, Shoulder Pain, Arm Pain, Back Pain, Hand Pain, Leg Pain, Foot Pain, Other Skin: negative: Rash, Lesions, Hema, Bruising, Other - Medications/Allergies Allergies/Adverse Reactions: Allergies Allergy/AdvReac Type Severity Reaction Status Date / Time No Known Allergies Allergy Verified 12/08/18 14:38 Medications: Current Medications Acetaminophen (Tylenol) 650 mg PO Q4H PRN PRN Reason: Headache/Fever/Mild Pain (1-3) Last Admin: 12/09/18 13:38 Dose: 650 mg Artificial Tears (Tears Naturale) 2 drop EA EYE PRN PRN PRN Reason: Dry Eyes Bisacodyl (Dulcolax) 10 mg PO DAILYPRN PRN PRN Reason: Constipation Bisacodyl (Dulcolax) 10 mg [place] DAILYPRN PRN PRN Reason: Constipation Cyanocobalamin (Vitamin B-12) 1,000 mcg PO DAILY [facility] Last Admin: 12/10/18 09:34 Dose: 1,000 mcg Folic Acid (Folvite) 1 mg PO DAILY [facility] Last Admin: 12/10/18 09:33 Dose: 1 mg Guaifenesin (Robitussin Sf) 200 mg PO Q4H PRN PRN Reason: Cough Hydralazine HCl (Apresoline) 10 mg SLOW IVP Q4H PRN PRN Reason: SBP > 180 and HR < 70 Ceftriaxone Sodium 1 gm/ (Sodium Chloride) 100 mls @ 200 mls/hr IVPB 1600 [facility] Last Admin: 12/09/18 16:12 Dose: 100 mls Levetiracetam (Keppra) 1,000 mg PO BID [facility] Last Admin: 12/10/18 09:33 Dose: 1,000 mg Loperamide HCl (Imodium) 2 mg PO PRN PRN PRN Reason: Diarrhea/Loose Stools Loratadine (Claritin) 10 mg PO DAILYPRN PRN PRN Reason: Sinus Symptoms Magnesium Oxide (Magnesium Oxide) 250 mg PO DAILY [facility] Last Admin: 12/10/18 09:33 Dose: 250 mg Mineral Oil/White Petrolatum (Eucerin Cream) 0 gm TOP BIDPRN PRN PRN Reason: Dry Skin Ondansetron HCl (Zofran Odt) 4 mg SL Q6H PRN PRN Reason: Nausea/Vomiting Ondansetron HCl (Zofran) 4 mg IVP Q6H PRN PRN Reason: Nausea/Vomiting Phenytoin Sodium (Dilantin Er) 300 mg PO DAILY [facility] Last Admin: 12/10/18 09:33 Dose: 300 mg Sodium Chloride ([place] Nasal [place] 0.65%) 0 ml EA NARE QIDPRN PRN PRN Reason: Nasal Congestion Throat Lozenges (Cepastat Lozenges) 1 adelfo PO Q2H PRN PRN Reason: Sore Throat Zolpidem Tartrate (Ambien) 5 mg PO HSPRN PRN PRN Reason: Insomnia
--- NOTE | 2018-12-10 11:07 | EKG ---
Test Reason : AMS Blood Pressure : / mmHG Vent. Rate : 079 BPM Atrial Rate : 312 BPM P-R Int : 000 ms QRS Dur : 132 ms QT Int : 410 ms P-R-T Axes : 041 029 163 degrees QTc Int : 470 ms Atrial flutter with 4:1 A-V conduction vs NSR longer rhythm strip could be helpful Left bundle branch block Abnormal ECG Confirmed by DR. Rod AMADOR ([id number]) on 12/10/2018 11:06:53 AM Referred By: Confirmed By:DR. Rod AMADOR
[2018-12-10] MEDS: cefTRIAXone\\ROCEPHIN 1 GM in Sodium Chloride 0.9% 100 ML IVPB SCH (15:41)
[2018-12-11] MEDS: levETIRAcetam 500 MG TAB PO SCH ×2 (09:08→20:46)
[2018-12-11] MEDS: Magnesium Oxide 250 MG TAB PO SCH (09:08)
[2018-12-11] MEDS: Folic Acid 1 MG TAB PO SCH (09:09)
[2018-12-11] MEDS: Cyanocobalamin (Vitamin B-12) 1,000 MCG TAB PO SCH (09:09)
--- NOTE | 2018-12-11 10:06 | PDOC.PN ---
- Subjective Encounter Start Date: 12/11/18 Encounter Start Time: 07:10 pt has poor apatite, no fever, no seizure Patient seen and examined. No overnight events - Objective Resuscitation Status - Order Detail: 12/08/18 12:19 Resuscitation Status Routine Resuscitation Status: FULL: Full Resuscitation Discussed with: patient and MAR Reviewed: Yes Vital Signs & Weight: Vital Signs (12 hours) Temp Pulse Resp BP Pulse Ox 12/11/18 07:00 98.8 F 90 16 151/76 H 96 12/11/18 04:00 98.9 F 93 16 155/85 H 94 L 12/10/18 23:55 99 F 91 16 144/77 H 94 L Weight Weight 138 lb I&O: 12/10/18 12/11/18 12/12/18 06:59 06:59 06:59 Intake Total 636 676 Balance 636 676 Result Diagrams: 12/09/18 08:07 12/09/18 08:07 EKG Reviewed by me: Yes Phys Exam - Physical Examination Constitutional: NAD HEENT: PERRLA, moist MMs, sclera anicteric Neck: no JVD, supple Respiratory: no wheezing, no rales, no rhonchi Cardiovascular: RRR, no significant murmur, no rub Gastrointestinal: soft, non-tender, no distention, positive bowel sounds Musculoskeletal: no edema, pulses present Neurological: non-focal, moves all 4 limbs Lymphatic: no nodes Psychiatric: normal affect, A&O x 3 Skin: no rash, normal turgor Dx/Plan (1) Encephalopathy acute Code(s): G93.40 - ENCEPHALOPATHY, UNSPECIFIED Status: Resolved Comment: now improved to baseline (2) UTI (urinary tract infection) Status: Acute Comment: on rocephin (3) H/O malignant neoplasm of breast Code(s): Z85.3 - PERSONAL HISTORY OF MALIGNANT NEOPLASM OF BREAST Status: Chronic Comment: (4) H/O meningioma of the brain Code(s): Z86.011 - PERSONAL HISTORY OF BENIGN NEOPLASM OF THE BRAIN Status: Chronic (5) Seizure disorder Code(s): G40.909 - EPILEPSY, UNSP, NOT INTRACTABLE, WITHOUT STATUS EPILEPTICUS Status: Chronic - Plan cont current plan of care, continue antibiotics, PT/OT, criminal justice social worker * continue rocephin, so far culture negative, on discharge she will not need any more antibiotic * awaiting rehab decision * medication reviewed as below * symptomatic treatment. Review of Systems - Review of Systems ENT: negative: Ear Pain, Ear Discharge, Nose Pain, Nose Discharge, Nose Congestion, Mouth Pain, Mouth Swelling, Throat Pain, Throat Swelling, Other Respiratory: negative: Cough, Dry, Shortness of Breath, Hemoptysis, SOB with Excertion, Pleuritic Pain, Sputum, Wheezing Cardiovascular: negative: chest pain, palpitations, orthopnea, paroxysmal nocturnal dyspnea, edema, light headedness, other Gastrointestinal: negative: Nausea, Vomiting, Abdominal Pain, Diarrhea, Constipation, Melena, Hematochezia, Other Genitourinary: negative: Dysuria, Frequency, Incontinence, Hematuria, Retention , Other Musculoskeletal: negative: Neck Pain, Shoulder Pain, Arm Pain, Back Pain, Hand Pain, Leg Pain, Foot Pain, Other Skin: negative: Rash, Lesions, Hema, Bruising, Other - Medications/Allergies Allergies/Adverse Reactions: Allergies Allergy/AdvReac Type Severity Reaction Status Date / Time No Known Allergies Allergy Verified 12/08/18 14:38 Medications: Current Medications Acetaminophen (Tylenol) 650 mg PO Q4H PRN PRN Reason: Headache/Fever/Mild Pain (1-3) Last Admin: 12/09/18 13:38 Dose: 650 mg Artificial Tears (Tears Naturale) 2 drop EA EYE PRN PRN PRN Reason: Dry Eyes Bisacodyl (Dulcolax) 10 mg PO DAILYPRN PRN PRN Reason: Constipation Bisacodyl (Dulcolax) 10 mg [place] DAILYPRN PRN PRN Reason: Constipation Cyanocobalamin (Vitamin B-12) 1,000 mcg PO DAILY [facility] Last Admin: 12/11/18 09:09 Dose: 1,000 mcg Folic Acid (Folvite) 1 mg PO DAILY [facility] Last Admin: 12/11/18 09:09 Dose: 1 mg Guaifenesin (Robitussin Sf) 200 mg PO Q4H PRN PRN Reason: Cough Hydralazine HCl (Apresoline) 10 mg SLOW IVP Q4H PRN PRN Reason: SBP > 180 and HR < 70 Ceftriaxone Sodium 1 gm/ (Sodium Chloride) 100 mls @ 200 mls/hr IVPB 1600 [facility] Last Admin: 12/10/18 15:41 Dose: 100 mls Levetiracetam (Keppra) 1,000 mg PO BID [facility] Last Admin: 12/11/18 09:08 Dose: 1,000 mg Loperamide HCl (Imodium) 2 mg PO PRN PRN PRN Reason: Diarrhea/Loose Stools Loratadine (Claritin) 10 mg PO DAILYPRN PRN PRN Reason: Sinus Symptoms Magnesium Oxide (Magnesium Oxide) 250 mg PO DAILY [facility] Last Admin: 12/11/18 09:08 Dose: 250 mg Mineral Oil/White Petrolatum (Eucerin Cream) 0 gm TOP BIDPRN PRN PRN Reason: Dry Skin Ondansetron HCl (Zofran Odt) 4 mg SL Q6H PRN PRN Reason: Nausea/Vomiting Ondansetron HCl (Zofran) 4 mg IVP Q6H PRN PRN Reason: Nausea/Vomiting Phenytoin Sodium (Dilantin Er) 300 mg PO DAILY [facility] Last Admin: 12/11/18 09:08 Dose: 300 mg Sodium Chloride ([place] Nasal [place] 0.65%) 0 ml EA NARE QIDPRN PRN PRN Reason: Nasal Congestion Throat Lozenges (Cepastat Lozenges) 1 adelfo PO Q2H PRN PRN Reason: Sore Throat Zolpidem Tartrate (Ambien) 5 mg PO HSPRN PRN PRN Reason: Insomnia
[2018-12-11] MEDS: cefTRIAXone\\ROCEPHIN 1 GM in Sodium Chloride 0.9% 100 ML IVPB SCH (15:46)
[2018-12-11] MEDS: Acetaminophen 325 MG TAB PO PRN (20:46)
[2018-12-12] MEDS: levETIRAcetam 500 MG TAB PO SCH ×2 (08:55→21:18)
[2018-12-12] MEDS: Magnesium Oxide 250 MG TAB PO SCH (08:56)
[2018-12-12] MEDS: Cyanocobalamin (Vitamin B-12) 1,000 MCG TAB PO SCH (08:56)
[2018-12-12] MEDS: Folic Acid 1 MG TAB PO SCH (08:56)
--- NOTE | 2018-12-12 10:33 | PDOC.PN ---
- Subjective Encounter Start Date: 12/12/18 Encounter Start Time: 07:20 Patient seen and examined. No new complaints. No overnight events pt has poor apatite, no seizure today - Objective Resuscitation Status - Order Detail: 12/08/18 12:19 Resuscitation Status Routine Resuscitation Status: FULL: Full Resuscitation Discussed with: patient and MAR Reviewed: Yes Vital Signs & Weight: Vital Signs (12 hours) Temp Pulse Resp BP BP Pulse Ox 12/12/18 10:22 96 117/73 12/12/18 08:00 98.4 F 93 16 99/71 95 12/12/18 03:53 98.5 F 90 16 136/77 96 12/11/18 23:58 97.5 F L 94 16 134/77 95 Weight Weight 138 lb I&O: 12/11/18 12/12/18 12/13/18 06:59 06:59 06:59 Intake Total 676 1718 Output Total 1 Balance 676 1717 Result Diagrams: 12/09/18 08:07 12/09/18 08:07 EKG Reviewed by me: Yes Phys Exam - Physical Examination Constitutional: NAD HEENT: PERRLA, moist MMs, sclera anicteric Neck: no JVD, supple Respiratory: no wheezing, no rales, no rhonchi Cardiovascular: RRR, no significant murmur, no rub Gastrointestinal: soft, non-tender, no distention, positive bowel sounds Musculoskeletal: no edema, pulses present Neurological: non-focal, normal sensation Lymphatic: no nodes Psychiatric: normal affect Skin: no rash, normal turgor Dx/Plan (1) Encephalopathy acute Code(s): G93.40 - ENCEPHALOPATHY, UNSPECIFIED Status: Resolved Comment: now improved to baseline (2) UTI (urinary tract infection) Status: Acute Comment: on rocephin (3) H/O malignant neoplasm of breast Code(s): Z85.3 - PERSONAL HISTORY OF MALIGNANT NEOPLASM OF BREAST Status: Chronic Comment: (4) H/O meningioma of the brain Code(s): Z86.011 - PERSONAL HISTORY OF BENIGN NEOPLASM OF THE BRAIN Status: Chronic (5) Seizure disorder Code(s): G40.909 - EPILEPSY, UNSP, NOT INTRACTABLE, WITHOUT STATUS EPILEPTICUS Status: Chronic - Plan cont current plan of care, plan discussed w/ family, PT/OT, social media intern * pt will finish antibiotic today, culture negative, will not need more antibiotics on discharge * await rehab decision * medication reviewed as below * symptomatic treatment * discussed with family bedside. Review of Systems - Review of Systems ENT: negative: Ear Pain, Ear Discharge, Nose Pain, Nose Discharge, Nose Congestion, Mouth Pain, Mouth Swelling, Throat Pain, Throat Swelling, Other Respiratory: negative: Cough, Dry, Shortness of Breath, Hemoptysis, SOB with Excertion, Pleuritic Pain, Sputum, Wheezing Cardiovascular: negative: chest pain, palpitations, orthopnea, paroxysmal nocturnal dyspnea, edema, light headedness, other Gastrointestinal: negative: Nausea, Vomiting, Abdominal Pain, Diarrhea, Constipation, Melena, Hematochezia, Other Genitourinary: negative: Dysuria, Frequency, Incontinence, Hematuria, Retention , Other Musculoskeletal: negative: Neck Pain, Shoulder Pain, Arm Pain, Back Pain, Hand Pain, Leg Pain, Foot Pain, Other - Medications/Allergies Allergies/Adverse Reactions: Allergies Allergy/AdvReac Type Severity Reaction Status Date / Time No Known Allergies Allergy Verified 12/08/18 14:38 Medications: Current Medications Acetaminophen (Tylenol) 650 mg PO Q4H PRN PRN Reason: Headache/Fever/Mild Pain (1-3) Last Admin: 12/11/18 20:46 Dose: 650 mg Artificial Tears (Tears Naturale) 2 drop EA EYE PRN PRN PRN Reason: Dry Eyes Bisacodyl (Dulcolax) 10 mg PO DAILYPRN PRN PRN Reason: Constipation Last Admin: 12/11/18 18:01 Dose: 10 mg Bisacodyl (Dulcolax) 10 mg [place] DAILYPRN PRN PRN Reason: Constipation Cyanocobalamin (Vitamin B-12) 1,000 mcg PO DAILY [facility] Last Admin: 12/12/18 08:56 Dose: 1,000 mcg Folic Acid (Folvite) 1 mg PO DAILY [facility] Last Admin: 12/12/18 08:56 Dose: 1 mg Guaifenesin (Robitussin Sf) 200 mg PO Q4H PRN PRN Reason: Cough Hydralazine HCl (Apresoline) 10 mg SLOW IVP Q4H PRN PRN Reason: SBP > 180 and HR < 70 Ceftriaxone Sodium 1 gm/ (Sodium Chloride) 100 mls @ 200 mls/hr IVPB 1600 [facility] Last Admin: 12/11/18 15:46 Dose: 100 mls Levetiracetam (Keppra) 1,000 mg PO BID [facility] Last Admin: 12/12/18 08:55 Dose: 1,000 mg Loperamide HCl (Imodium) 2 mg PO PRN PRN PRN Reason: Diarrhea/Loose Stools Loratadine (Claritin) 10 mg PO DAILYPRN PRN PRN Reason: Sinus Symptoms Magnesium Oxide (Magnesium Oxide) 250 mg PO DAILY [facility] Last Admin: 12/12/18 08:56 Dose: 250 mg Mineral Oil/White Petrolatum (Eucerin Cream) 0 gm TOP BIDPRN PRN PRN Reason: Dry Skin Ondansetron HCl (Zofran Odt) 4 mg SL Q6H PRN PRN Reason: Nausea/Vomiting Ondansetron HCl (Zofran) 4 mg IVP Q6H PRN PRN Reason: Nausea/Vomiting Phenytoin Sodium (Dilantin Er) 300 mg PO DAILY [facility] Last Admin: 12/12/18 08:56 Dose: 300 mg Sodium Chloride ([place] Nasal [place] 0.65%) 0 ml EA NARE QIDPRN PRN PRN Reason: Nasal Congestion Throat Lozenges (Cepastat Lozenges) 1 adelfo PO Q2H PRN PRN Reason: Sore Throat Zolpidem Tartrate (Ambien) 5 mg PO HSPRN PRN PRN Reason: Insomnia
--- NOTE | 2018-12-12 11:58 | DIS ---
DATE OF ADMISSION: 12/08/2018 DATE OF DISCHARGE: 12/12/2018 PRIMARY CARE PHYSICIAN: Dr. Jett Parada. DISCHARGE DISPOSITION: Rehab. PRIMARY DISCHARGE DIAGNOSES: 1. Acute encephalopathy, resolved. 2. Urinary tract infection, treated in hospital. SECONDARY DISCHARGE DIAGNOSES: 1. History of malignant neoplasm of breast. 2. History of meningioma of brain. 3. Seizure disorder. PRIMARY PROCEDURE/OPERATION: None. RADIOLOGICAL INVESTIGATION: Chest x-ray normal. CT brain showed old craniotomy changes. Significant labs; hemoglobin 12.4. INR 1.1. Creatinine 0.71. TSH 0.78. Cardiac enzyme negative. Urinalysis, suggestive UTI. Urine drug screen, negative. DISCHARGE MEDICATIONS: 1. Keppra 750 mg p.o. b.i.d. 2. Dilantin 300 mg p.o. daily. 3. Folic acid 1 mg daily. 4. Vitamin B12 1000 mcg daily. 5. Magnesium 250 mg p.o. daily. CONTRAINDICATION: None. CODE STATUS: Full code. INPATIENT VACUUM FORMING MACHINE OPERATOR: Dr. Donell Paez, Neurologist was following while in hospital. TEST RESULTS PENDING ON DISCHARGE: None. ALLERGIES: NO KNOWN DRUG ALLERGIES. DISCHARGE PLAN: Posthospital, the patient is planned for discharge to rehab and subsequently, the patient will follow up with Dr. Donlel Paez, and her primary care physician, Dr. Jett Parada as instructed. HOSPITAL COURSE: A 73-year-old female, who was admitted by Dr. Goff. Please see his H and P for further details. The patient was brought to ER because the patient was having altered mental status. There was concern of seizure activity as well and Dr. Paez was following this patient as an outpatient basis and adjusting medication. We consulted Dr. Paez and he recommended Keppra to 750 mg b.i.d. and resume Dilantin 300 mg p.o. daily. On admission, her urinalysis was consistent with urinary tract infection, which was treated with Rocephin while in hospital. The patient has finished complete course of Rocephin therapy while in hospital. Her cultures remain negative. She remained afebrile while in hospital. She did not have any leukocytosis on admission. The patient did not require any more antibiotic therapy upon discharge. The patient was recently started on lamotrigine, which was discontinued. The patient is seen and examined at bedside today. The patient was evaluated by PT and OT while in hospital and PT recommended rehab placement and that is why with help of heel caser, we are trying to arrange inpatient rehabilitation if she qualifies. The patient is otherwise medically stable for discharge. She does have underlying mild dementia, failure to thrive, and poor p.o. intake that needs to be addressed as an outpatient basis. This patient is continues to be high risk for recurrent admission. This patient may need outpatient palliative care evaluation. Plan of care discussed with the family member today. Job ID: [id number] MTDD
[2018-12-12] MEDS: cefTRIAXone\\ROCEPHIN 1 GM in Sodium Chloride 0.9% 100 ML IVPB SCH (16:18)
[2018-12-13] MEDS: Dextrose 5 % And 0.9 % NaCl 1,000 ML IV SCH ×2 (06:04→18:24)
[2018-12-13] MEDS: Magnesium Oxide 250 MG TAB PO SCH (09:10)
[2018-12-13] MEDS: Cyanocobalamin (Vitamin B-12) 1,000 MCG TAB PO SCH (09:11)
[2018-12-13] MEDS: levETIRAcetam 500 MG TAB PO SCH ×2 (09:11→20:42)
[2018-12-13] MEDS: Folic Acid 1 MG TAB PO SCH (09:11)
[2018-12-13 10:27] LABS: #Lymphocytes 0.8 thou/uL (1.20-3.40); #Monocytes 1.2 thou/uL (0.11-0.59); #Neutrophils 6.7 thou/uL (1.40-6.50); %Basophils 0.4 % (0.0-1.0); %Eosinophils 0.3 % (0.0-10.0); %Lymphocytes 9.1 % (21.0-51.0); %Monocytes 13.3 % (0.0-10.0); Hemoglobin 9.9 g/dL (12.0-16.0); Mean Corpuscular HGB CONC 31.9 g/dL (32.0-36.0); Mean Corpuscular Hemoglobin 31.5 pg (27.0-31.0); Mean Corpuscular Volume 98.7 fL (78.0-98.0); Platelet Count 173 thou/uL (130-400); RBC Distribution Width 12.3 % (11.5-14.5); Red Blood Cell (RBC) Count 3.14 mill/uL (4.20-5.40); White Blood Cell (WBC) Count 8.7 thou/uL (4.8-10.8)
[2018-12-13] MEDS: Megestrol Acetate 40 MG TAB PO SCH ×2 (10:33→20:41)
[2018-12-13 10:51] LABS: ALT (SGPT) 28 U/L (8-55); AST (SGOT) 73 U/L (5-34); Albumin 2.5 g/dL (3.4-4.8); Alkaline Phosphatase 105 U/L (40-150); Anion Gap 11 mmol/L (10-20); BUN (Urea Nitrogen) 14 mg/dL (9.8-20.1); Bilirubin, Total 0.3 mg/dL (0.2-1.2); Calc. Creatinine Clearance 60 mL/min (70-130); Calcium 7.3 mg/dL (7.8-10.44); Carbon Dioxide 21 mmol/L (23-31); Chloride 103 mmol/L (98-107); Estimated GFR-MDRD 68; Globulin 2.1 g/dL (2.4-3.5); Potassium 3.5 mmol/L (3.5-5.1); Protein, Total 4.6 g/dL (6.0-8.3); Sodium 131 mmol/L (136-145)
[2018-12-13 11:05] LABS: Glucose 794 mg/dL (83-110)
[2018-12-13 11:56] LABS: Glucose 149 mg/dL (83-110)
--- NOTE | 2018-12-13 12:02 | PDOC.PN ---
- Subjective Encounter Start Date: 12/13/18 Encounter Start Time: 07:20 Patient seen and examined. No new complaints. No overnight events - Objective Resuscitation Status - Order Detail: 12/08/18 12:19 Resuscitation Status Routine Resuscitation Status: FULL: Full Resuscitation Discussed with: patient and MAR Reviewed: Yes Vital Signs & Weight: Vital Signs (12 hours) Temp Pulse Resp BP BP Pulse Ox 12/13/18 08:15 98.3 F 96 16 139/82 94 L 12/13/18 04:00 99.5 F 101 H 16 151/78 H 93 L 12/13/18 00:00 99.1 F 99 16 144/77 H 95 Weight Weight 138 lb I&O: 12/12/18 12/13/18 12/14/18 06:59 06:59 06:59 Intake Total 1718 Output Total 1 800 Balance 1717 -800 Result Diagrams: 12/13/18 10:12 12/13/18 11:31 Additional Labs: Accuchecks 12/13/18 11:10 POC Glucose 153 H Phys Exam - Physical Examination Constitutional: NAD HEENT: PERRLA, moist MMs, sclera anicteric Neck: no JVD, supple Respiratory: no wheezing, no rales, no rhonchi Cardiovascular: RRR, no significant murmur, no rub Gastrointestinal: soft, non-tender, no distention, positive bowel sounds Musculoskeletal: no edema, pulses present Neurological: non-focal, normal sensation Lymphatic: no nodes Psychiatric: normal affect, A&O x 3 Skin: no rash, normal turgor Dx/Plan (1) Encephalopathy acute Code(s): G93.40 - ENCEPHALOPATHY, UNSPECIFIED Status: Resolved Comment: now improved to baseline (2) UTI (urinary tract infection) Status: Acute Comment: on rocephin (3) H/O malignant neoplasm of breast Code(s): Z85.3 - PERSONAL HISTORY OF MALIGNANT NEOPLASM OF BREAST Status: Chronic Comment: (4) H/O meningioma of the brain Code(s): Z86.011 - PERSONAL HISTORY OF BENIGN NEOPLASM OF THE BRAIN Status: Chronic (5) Seizure disorder Code(s): G40.909 - EPILEPSY, UNSP, NOT INTRACTABLE, WITHOUT STATUS EPILEPTICUS Status: Chronic - Plan cont current plan of care, plan discussed w/ family, social welfare administrator, speech therapy * add megace to stimulate apatite * updated plan to * speech evaluation * medication reviewed as below * symptomatic treatment * today glucose was high on BMP but repeat testing via fingerstick was ok, As pt is on dex NS IVF, that might led to this finding * await placement * given her poor po intake and failure to thrive she is at high risk for readmission. Review of Systems - Review of Systems Constitutional: weakness. negative: fever, chills, sweats, malaise, other ENT: negative: Ear Pain, Ear Discharge, Nose Pain, Nose Discharge, Nose Congestion, Mouth Pain, Mouth Swelling, Throat Pain, Throat Swelling, Other Respiratory: negative: Cough, Dry, Shortness of Breath, Hemoptysis, SOB with Excertion, Pleuritic Pain, Sputum, Wheezing Cardiovascular: negative: chest pain, palpitations, orthopnea, paroxysmal nocturnal dyspnea, edema, light headedness, other Gastrointestinal: negative: Nausea, Vomiting, Abdominal Pain, Diarrhea, Constipation, Melena, Hematochezia, Other Genitourinary: negative: Dysuria, Frequency, Incontinence, Hematuria, Retention , Other Musculoskeletal: negative: Neck Pain, Shoulder Pain, Arm Pain, Back Pain, Hand Pain, Leg Pain, Foot Pain, Other Skin: negative: Rash, Lesions, Hema, Bruising, Other - Medications/Allergies Allergies/Adverse Reactions: Allergies Allergy/AdvReac Type Severity Reaction Status Date / Time No Known Allergies Allergy Verified 12/08/18 14:38 Medications: Current Medications Acetaminophen (Tylenol) 650 mg PO Q4H PRN PRN Reason: Headache/Fever/Mild Pain (1-3) Last Admin: 12/11/18 20:46 Dose: 650 mg Artificial Tears (Tears Naturale) 2 drop EA EYE PRN PRN PRN Reason: Dry Eyes Bisacodyl (Dulcolax) 10 mg PO DAILYPRN PRN PRN Reason: Constipation Last Admin: 12/11/18 18:01 Dose: 10 mg Bisacodyl (Dulcolax) 10 mg [place] DAILYPRN PRN PRN Reason: Constipation Cyanocobalamin (Vitamin B-12) 1,000 mcg PO DAILY [facility] Last Admin: 12/13/18 09:11 Dose: 1,000 mcg Folic Acid (Folvite) 1 mg PO DAILY [facility] Last Admin: 12/13/18 09:11 Dose: 1 mg Guaifenesin (Robitussin Sf) 200 mg PO Q4H PRN PRN Reason: Cough Hydralazine HCl (Apresoline) 10 mg SLOW IVP Q4H PRN PRN Reason: SBP > 180 and HR < 70 Ceftriaxone Sodium 1 gm/ (Sodium Chloride) 100 mls @ 200 mls/hr IVPB 1600 [facility] Last Admin: 12/12/18 16:18 Dose: 100 mls Dextrose/Sodium Chloride (D5 0.9% Ns) 1,000 mls @ 100 mls/hr IV .Q10H [facility] Last Admin: 12/13/18 06:04 Dose: 1,000 mls Levetiracetam (Keppra) 750 mg PO BID [facility] Last Admin: 12/13/18 09:11 Dose: 750 mg Loperamide HCl (Imodium) 2 mg PO PRN PRN PRN Reason: Diarrhea/Loose Stools Loratadine (Claritin) 10 mg PO DAILYPRN PRN PRN Reason: Sinus Symptoms Magnesium Oxide (Magnesium Oxide) 250 mg PO DAILY [facility] Last Admin: 12/13/18 09:10 Dose: 250 mg Megestrol Acetate (Megace) 40 mg PO BID [facility] Last Admin: 12/13/18 10:33 Dose: 40 mg Mineral Oil/White Petrolatum (Eucerin Cream) 0 gm TOP BIDPRN PRN PRN Reason: Dry Skin Ondansetron HCl (Zofran Odt) 4 mg SL Q6H PRN PRN Reason: Nausea/Vomiting Ondansetron HCl (Zofran) 4 mg IVP Q6H PRN PRN Reason: Nausea/Vomiting Phenytoin Sodium (Dilantin Er) 300 mg PO DAILY [facility] Last Admin: 12/13/18 09:11 Dose: 300 mg Sodium Chloride ([place] Nasal [place] 0.65%) 0 ml EA NARE QIDPRN PRN PRN Reason: Nasal Congestion Throat Lozenges (Cepastat Lozenges) 1 adelfo PO Q2H PRN PRN Reason: Sore Throat Zolpidem Tartrate (Ambien) 5 mg PO HSPRN PRN PRN Reason: Insomnia
[2018-12-13] MEDS: cefTRIAXone\\ROCEPHIN 1 GM in Sodium Chloride 0.9% 100 ML IVPB SCH (18:23)
--- NOTE | 2018-12-13 18:30 | MRI ---
Noncontrast enhanced MRI images brain. History: Left-sided neglect facial droop evaluate for stroke. Noncontrast enhanced MRI images of the brain obtained. Comparison made to previous exam from 9. MRI images brain demonstrate extensive right frontal and anterior temporal areas of gliosis and encep halomalacic changes. This likely is due to postsurgical changes. There does appear to be areas of diffusion restriction and T2 signal abnormalities seen along the rig ht frontal and temporal lobes adjacent to the previously noted right middle cranial fossa mass which has been surgically removed. This may represent areas of vasogenic edema as well as cytotoxic e brian. IMPRESSION: Postsurgical changes with areas of gliosis and encephalomalacia and peripheral areas of c ytotoxic edema.
[2018-12-14] MEDS: Dextrose 5 % And 0.9 % NaCl 1,000 ML IV SCH ×2 (02:22→05:21)
[2018-12-14 09:57] LABS: Hemoglobin 10.7 g/dL (12.0-16.0); Mean Corpuscular HGB CONC 33.6 g/dL (32.0-36.0); Mean Corpuscular Hemoglobin 31.6 pg (27.0-31.0); Mean Corpuscular Volume 94.1 fL (78.0-98.0); Mean Platelet Volume 6.3 fL (7.4-10.4); Platelet Count 201 thou/uL (130-400); Red Blood Cell (RBC) Count 3.38 mill/uL (4.20-5.40)
[2018-12-14 10:11] LABS: Band 3 % (5-11); Eosinophils 1 % (0-10); Lymphocytes 10 % (21-51); MDiff Complete? YES; Monocytes 9 % (0-10); Neutrophil 77 % (42-75); Platelet Morphology Comment Appears Adequate; Polychromasia SLIGHT = 2-3 cells (100X) (0-2/hpf)
[2018-12-14 10:20] LABS: Anion Gap 11 mmol/L (10-20); BUN (Urea Nitrogen) 12 mg/dL (9.8-20.1); Calc. Creatinine Clearance 87 mL/min (70-130); Calcium 8.8 mg/dL (7.8-10.44); Carbon Dioxide 24 mmol/L (23-31); Chloride 102 mmol/L (98-107); Estimated GFR-MDRD Greater than 90; Glucose 146 mg/dL (83-110); Potassium 3.8 mmol/L (3.5-5.1); Sodium 133 mmol/L (136-145)
[2018-12-14] MEDS: Folic Acid 1 MG TAB PO SCH (10:34)
[2018-12-14] MEDS: levETIRAcetam 500 MG TAB PO SCH (10:35)
[2018-12-14] MEDS: Megestrol Acetate 40 MG TAB PO SCH (10:35)
[2018-12-14] MEDS: Magnesium Oxide 250 MG TAB PO SCH (10:35)
[2018-12-14] MEDS: Cyanocobalamin (Vitamin B-12) 1,000 MCG TAB PO SCH (10:43)
--- NOTE | 2018-12-14 11:08 | DIS ---
DATE OF ADMISSION: 12/08/2018 DATE OF DISCHARGE: 12/14/2018 ADDENDUM: The patient stayed in hospital because she was waiting for rehab. Please see my discharge summary dictated on December 12 for further information. We also did MRI of brain yesterday, which did show encephalomalacia surrounding cytotoxic edema without any new finding. Dose of Keppra was reduced to 750 mg b.i.d. and Macrobid was added for urinary tract infection. This patient also needs some nutritional supplements and that is why we added calcium with vitamin D. The patient also needs some appetite stimulants and that is why we added Megace. Rest of medication will be continued as per previous. The patient is seen and examined at bedside today. Please see my progress note from today for further detail. If rehab have bed available today, then she will be able to go today. Job ID: [id number]
--- NOTE | 2018-12-14 11:16 | PDOC.PN ---
- Subjective Encounter Start Date: 12/14/18 Encounter Start Time: 07:30 Patient seen and examined. No new complaints. No overnight events - Objective Resuscitation Status - Order Detail: 12/08/18 12:19 Resuscitation Status Routine Resuscitation Status: FULL: Full Resuscitation Discussed with: patient and MAR Reviewed: Yes Vital Signs & Weight: Vital Signs (12 hours) Temp Pulse Resp BP Pulse Ox 12/14/18 07:40 99.9 F H 98 16 128/69 95 12/14/18 04:00 99 F 92 16 137/79 96 12/14/18 00:00 98.4 F 99 16 141/65 H 96 Weight Weight 135 lb 12.8 oz I&O: 12/13/18 12/14/18 12/15/18 06:59 06:59 06:59 Intake Total 3118 Output Total 800 Balance -800 3118 Result Diagrams: 12/14/18 09:44 12/14/18 09:44 Additional Labs: Accuchecks 12/13/18 11:10 POC Glucose 153 H Radiology Reviewed by me: Yes (MRI noted) EKG Reviewed by me: Yes (nsr) Phys Exam - Physical Examination Constitutional: NAD HEENT: PERRLA, moist MMs, sclera anicteric Neck: no JVD, supple Respiratory: no wheezing, no rales, no rhonchi Cardiovascular: RRR, no significant murmur, no rub Gastrointestinal: soft, non-tender, no distention, positive bowel sounds Musculoskeletal: no edema, pulses present Neurological: moves all 4 limbs Lymphatic: no nodes Psychiatric: normal affect Skin: no rash, normal turgor Dx/Plan (1) Encephalopathy acute Code(s): G93.40 - ENCEPHALOPATHY, UNSPECIFIED Status: Resolved Comment: now improved to baseline (2) UTI (urinary tract infection) Status: Acute Comment: on rocephin (3) H/O malignant neoplasm of breast Code(s): Z85.3 - PERSONAL HISTORY OF MALIGNANT NEOPLASM OF BREAST Status: Chronic Comment: (4) H/O meningioma of the brain Code(s): Z86.011 - PERSONAL HISTORY OF BENIGN NEOPLASM OF THE BRAIN Status: Chronic (5) Seizure disorder Code(s): G40.909 - EPILEPSY, UNSP, NOT INTRACTABLE, WITHOUT STATUS EPILEPTICUS Status: Chronic - Plan cont current plan of care, continue antibiotics, PT/OT, 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 Review of Systems - Review of Systems ENT: negative: Ear Pain, Ear Discharge, Nose Pain, Nose Discharge, Nose Congestion, Mouth Pain, Mouth Swelling, Throat Pain, Throat Swelling, Other Respiratory: negative: Cough, Dry, Shortness of Breath, Hemoptysis, SOB with Excertion, Pleuritic Pain, Sputum, Wheezing Cardiovascular: negative: chest pain, palpitations, orthopnea, paroxysmal nocturnal dyspnea, edema, light headedness, other Gastrointestinal: negative: Nausea, Vomiting, Abdominal Pain, Diarrhea, Constipation, Melena, Hematochezia, Other Genitourinary: negative: Dysuria, Frequency, Incontinence, Hematuria, Retention , Other Musculoskeletal: negative: Neck Pain, Shoulder Pain, Arm Pain, Back Pain, Hand Pain, Leg Pain, Foot Pain, Other - Medications/Allergies Allergies/Adverse Reactions: Allergies Allergy/AdvReac Type Severity Reaction Status Date / Time No Known Allergies Allergy Verified 12/08/18 14:38 Medications: Current Medications Acetaminophen (Tylenol) 650 mg PO Q4H PRN PRN Reason: Headache/Fever/Mild Pain (1-3) Last Admin: 12/11/18 20:46 Dose: 650 mg Artificial Tears (Tears Naturale) 2 drop EA EYE PRN PRN PRN Reason: Dry Eyes Bisacodyl (Dulcolax) 10 mg PO DAILYPRN PRN PRN Reason: Constipation Last Admin: 12/11/18 18:01 Dose: 10 mg Bisacodyl (Dulcolax) 10 mg IN DAILYPRN PRN PRN Reason: Constipation Calcium/Vitamin D (Caltrate 600 + Vit D) 1 tab PO BID-[facility] Cyanocobalamin (Vitamin B-12) 1,000 mcg PO DAILY [facility] Last Admin: 12/14/18 10:43 Dose: 1,000 mcg Folic Acid (Folvite) 1 mg PO DAILY [facility] Last Admin: 12/14/18 10:34 Dose: 1 mg Guaifenesin (Robitussin Sf) 200 mg PO Q4H PRN PRN Reason: Cough Hydralazine HCl (Apresoline) 10 mg SLOW IVP Q4H PRN PRN Reason: SBP > 180 and HR < 70 Dextrose/Sodium Chloride (D5 0.9% Ns) 1,000 mls @ 100 mls/hr IV .Q10H [facility] Last Admin: 12/14/18 05:21 Dose: 1,000 mls Levetiracetam (Keppra) 750 mg PO BID [facility] Last Admin: 12/14/18 10:35 Dose: 750 mg Loperamide HCl (Imodium) 2 mg PO PRN PRN PRN Reason: Diarrhea/Loose Stools Loratadine (Claritin) 10 mg PO DAILYPRN PRN PRN Reason: Sinus Symptoms Magnesium Oxide (Magnesium Oxide) 250 mg PO DAILY [facility] Last Admin: 12/14/18 10:35 Dose: 250 mg Megestrol Acetate (Megace) 40 mg PO BID [facility] Last Admin: 12/14/18 10:35 Dose: 40 mg Mineral Oil/White Petrolatum (Eucerin Cream) 0 gm TOP BIDPRN PRN PRN Reason: Dry Skin Ondansetron HCl (Zofran Odt) 4 mg SL Q6H PRN PRN Reason: Nausea/Vomiting Ondansetron HCl (Zofran) 4 mg IVP Q6H PRN PRN Reason: Nausea/Vomiting Phenytoin Sodium (Dilantin Er) 300 mg PO DAILY [facility] Last Admin: 12/14/18 10:35 Dose: 300 mg Sodium Chloride ([place] Nasal [place] 0.65%) 0 ml EA NARE QIDPRN PRN PRN Reason: Nasal Congestion Throat Lozenges (Cepastat Lozenges) 1 adelfo PO Q2H PRN PRN Reason: Sore Throat Zolpidem Tartrate (Ambien) 5 mg PO HSPRN PRN PRN Reason: Insomnia
[2018-12-14 15:38] VITALS: BP 142/70; TEMP 98.4
[2018-12-14] MEDS ORDERED: Calcium Carbonate + Vit D 1 TAB PO SCH (17:00)
== END 2018-12-14 17:02 | DRG 689 ==
LOC: ERS 07:56 → 2SE 14:14
PROVIDERS: ADMIT Internal Medicine; ATTEND Internal Medicine
DX: N39.0 Urinary tract infection, site not specified (principal); G93.41 Metabolic encephalopathy; G40.909 Epilepsy, unspecified, not intractable, without status epilepticus; F03.90 Unspecified dementia, unspecified severity, without behavioral disturbance, psychotic disturbance, mood disturbance, and anxiety; Z85.3 Personal history of malignant neoplasm of breast; Z90.10 Acquired absence of unspecified breast and nipple; Z90.49 Acquired absence of other specified parts of digestive tract; Z79.52 Long term (current) use of systemic steroids; Z79.899 Other long term (current) drug therapy; Z86.011 Personal history of benign neoplasm of the brain
CPT/HCPCS: 36415; 36416; 51701; 70450; 70551; 71045; 80048; 80053; 80177; 80185; 80306; 80307; 81003; 81015; 82550; 83605; 84443; 84484; 85025; 85610; 85730; 87040; 87086; 93005; 96360; 96361; A4353; J0696; J2060; J3490; S0179

== ENCOUNTER 2019-02-06 12:00 | Emergency (ER) | payer MEDICARE ==
--- NOTE | 2019-02-06 13:02 | CT ---
CT Brain WO Con: 02/06/2019 12:11 PM CLINICAL HISTORY: Trauma. COMPARISON: None. FINDINGS: Hemorrhage: None. Ventricular system: Ex vacuo dilatation. Cerebral parenchyma: Prominent sized region of right cerebral hemispheric encephalomalacia is redemon strated, superimposed upon mild chronic ischemic disease of cerebral white matter Midline shift: None. Mass: No mass effect. Calvarium: Stable postoperative appearance. Visualized Paranasal sinuses: Clear. IMPRESSION: No acute intracranial abnormalities. Persistent prominent sized region of cavitary encephalomalacia of the right cerebral hemisphere, with ex vacuo dilatation of ventricular system.
[2019-02-06 13:07] LABS: Bilirubin Negative (Negative); Blood, Urine Negative (Negative); Clarity Clear (Clear); Glucose, Urine (Dipstick) Normal (Negative); Leukocyte Negative Leu/uL (Negative); Nitrite Negative (Negative); Protein, Urine (Dipstick) 50 mg/dL (Neg-Trace)
[2019-02-06 13:09] LABS: Bacteria/HPF None Seen HPF (None Seen); RBC/HPF 0-3 HPF (0-3); Squamous Epithelial 0-3 HPF (0-3); WBC/HPF 0-3 HPF (0-3)
[2019-02-06 13:10] LABS: Calcium Oxalate Crystals 2+ HPF (None Seen); Mucous/LPF 1+ LPF (<2+)
[2019-02-06] MEDS ORDERED: Acetaminophen 500 MG TAB ONE (14:10)
--- NOTE | 2019-02-06 14:24 | RAD ---
LEFT HIP 2 VIEWS: Date: )02/06/19 INDICATION: Fall with left hip pain. COMPARISON: None. IMPRESSION: There is mild degenerative arthrosis of left hip. No acute fracture or subluxation is evident. POS: [facility]
--- NOTE | 2019-02-06 14:24 | RAD ---
AP VIEW PELVIS: Date: 02/06/19 INDICATION: History of fall with right-sided hip pain. IMPRESSION: No acute fracture or subluxation is evident. There is mild degenerative arthrosis of both hips. Visua lized bowel gas pattern is unremarkable appearing. POS: CET
== END 2019-02-06 14:06 | disposition home or self-care (01) ==
LOC: ERS 12:00
DX: S01.81XA Laceration without foreign body of other part of head, initial encounter (principal); W18.30XA Fall on same level, unspecified, initial encounter
CPT/HCPCS: 51701; 70450; 72170; 81003; 81015

== ENCOUNTER 2019-02-07 10:30 | Outpatient (CLI) | payer MEDICARE ==
[2019-02-07 11:17] LABS: Estimated GFR-MDRD - POC Greater than 90
--- NOTE | 2019-02-07 12:42 | MRI ---
BRAIN MRI WITH AND WITHOUT CONTRAST: 02/07/19 COMPARISON: MRI of brain dated 12/13/[address] 02/06/19. CLINICAL HISTORY: Brain tumor, follow-up (C71.9). FINDINGS: There is diffuse pachymeningeal enhancement overlying each cerebral hemisphere. Bur holes and craniot maría defect involve right calvarium, with underlying prominent sized region of cavitary encephalomalac ia. There are interspersed foci of intrinsic T1 hyperintensity. Ex vacuo dilatation of ventricular s ystem is present. No significant midline shift or evidence of acute territorial infarction. Hyperint ensity about the site of encephalomalacia on diffusion imaging is redemonstrated, although less prono unced. Mild hemosiderin staining also remains. Within the right middle cranial fossa, there is an ext ra-axial dural based enhancing mass that measures 1.7 cm transverse x 1.1 cm AP. Size of this lesion is note reliably comparable to the preceding noncontrast brain MRI. IMPRESSION: 1. Persistent large region of encephalomalacia involving the anterior and mid right cerebral hem isphere with overlying surgical alteration of the calvarium. There is diffuse pachymeningeal enhancem ent. 2. There is a dural based enhancing extra-axial mass of the right middle cranial fossa indicatin g residua/recurrence of patient's known resected tumor. Recommend continued imaging follow-up. POS: KARISSA
== END 2019-02-07 10:31 | disposition home or self-care (01) ==
LOC: MRI 10:30
PROVIDERS: ATTEND Neurological Surgery
DX: D49.6 Neoplasm of unspecified behavior of brain (principal); G93.89 Other specified disorders of brain
CPT/HCPCS: 70553; 82565

== ENCOUNTER 2019-05-25 14:23 | Emergency (ER) | payer MEDICARE, OTHER ==
--- NOTE | 2019-05-25 15:11 | CT ---
CT BRAIN WITHOUT CONTRAST: HISTORY: Fall, left-sided head injury. FINDINGS: Comparison is made with the exam of 02/06/2019. Postop changes of right-sided craniotomy and encephalomalacia in the right temporofrontal lobes are a gain seen. Ventricular size is stable and the basilar cisterns patent. No evidence of acute infarct , hemorrhage, midline shift, or abnormal extraaxial fluid collections is seen. No acute gallbladder fracture is identified. The visualized paranasal sinuses and mastoid air cells are well aerated. IMPRESSION: No CT evidence of acute intracranial process. POS: [facility]
== END 2019-05-25 15:45 | disposition home or self-care (01) ==
LOC: ERS 14:23
DX: S05.12XA Contusion of eyeball and orbital tissues, left eye, initial encounter (principal); Z79.899 Other long term (current) drug therapy; W18.30XA Fall on same level, unspecified, initial encounter; Y92.002 Bathroom of unspecified non-institutional (private) residence as the place of occurrence of the external cause
CPT/HCPCS: 70450

== ENCOUNTER 2019-06-09 14:09 | Outpatient (CLI) | payer MEDICARE ==
--- NOTE | 2019-06-09 14:29 | RAD ---
Exam:2 views right hip HISTORY: Pain COMPARISON: None FINDINGS: Joint spaces preserved. Contour of the femoral head is maintained. No fracture. IMPRESSION: Unremarkable 2 views right hip
== END 2019-06-09 14:10 | disposition home or self-care (01) ==
LOC: BICRAD 14:09
PROVIDERS: ATTEND Family Medicine
DX: M25.551 Pain in right hip (principal)

== ENCOUNTER 2019-11-16 11:30 | Outpatient (CLI) | payer MEDICARE ==
--- NOTE | 2019-11-16 15:10 | MRI ---
LUMBAR SPINE MRI WITHOUT IV CONTRAST: HISTORY: Lumbar spondylosis, right hip pain, injury from a fall in April. FINDINGS: Multiplanar, multisequence MRI examination of the lumbar spine is performed. There are diffuse disk desiccation changes and ligament and facet hypertrophic changes. There are several T1 hypointense, T 2 hyperintense foci involving the kidneys, the largest in the left kidney measuring 1.6 cm, statistic ally small cysts. The conus medullaris region is unremarkable. T12-L1 disk: Generalized disk protrusion resulting in moderate central canal stenosis and moderate l ateral recess stenosis with some inferior central diskal migration down to the level of the L1 pedicl e without significant foraminal stenosis. L1-L2 disk: No canal or foraminal stenosis. L2-L3 disk: Heterogeneous disk-osteophytosis with severe central canal and lateral recess stenosis a nd moderate to severe bilateral foraminal stenosis. L3-L4 disk: Mild lateral recess stenosis. L4-L5 disk: Generalized disk bulging with mild lateral recess stenosis and mild bilateral foraminal stenosis. L5-S1 disk: Broad-based central protrusion with some central thecal sac compression without signific ant associated stenosis. IMPRESSION: Multilevel variable severity canal, lateral recess, and foraminal stenosis as above, particularly at T12-L1 and L2-L3 levels. POS: [facility]
--- NOTE | 2019-11-16 15:32 | MRI ---
BRAIN MRI WITH AND WITHOUT CONTRAST: DATE: 11/16/2019. COMPARISON: 02/07/2019. HISTORY: Meningioma status post surgery. TECHNIQUE: Multiplanar, multisequence MR imaging of the brain is obtained with and without contrast. FINDINGS: The diffusion weighted imaging demonstrates no evidence for acute infarction. There is a postoperative cavity on the right which involves the anterior inferior aspect of the right temporal lobe as well as the lateral aspect of the right frontal lobe, similar when compared to prio r imaging. The gradient echo imaging demonstrates stable blooming artifact within the anterior super ior aspect of the postoperative cavity consistent with stable residual blood products. Stable cranio siena changes are present on the right. Stable encephalomalacia within the right temporal and frontal lobe. There is no midline shift or mass effect. Stable prominence of the temporal horn and frontal horn of right lateral ventricle on the basis of encephalomalacia. There are linear areas of increased T1 signal involving the cortex in the temporal lobe and frontal l obe on the basis of stable right-sided laminar necrosis. There is an enhancing extraaxial mass within the anterior aspect of the middle cranial fossa on the r ight medially measuring approximately 1.9 cm in transverse dimension and 1.2 cm in AP dimension consi stent with residual meningioma, unchanged when compared to the 02/07/2019 exam. The postcontrast imag ing demonstrates stable postoperative dural enhancement bilaterally. Arterial flow voids at the axial level of the skull base appear grossly unremarkable. Of note, the distal aspect of the M1 segment and proximal aspect of the M2 segment on the right are i nseparable from the residual mass in the right middle cranial fossa. IMPRESSION: Stable residual enhancing extraaxial mass lesion in the ventral aspect of the middle cranial fossa on the right, consistent with residual meningioma. Continued followup advised. POS: JORJE
== END 2019-11-16 11:31 | disposition home or self-care (01) ==
LOC: MRI 11:30
PROVIDERS: ATTEND Neurological Surgery
DX: D33.2 Benign neoplasm of brain, unspecified (principal); M47.816 Spondylosis without myelopathy or radiculopathy, lumbar region; G93.9 Disorder of brain, unspecified; M48.061 Spinal stenosis, lumbar region without neurogenic claudication; M48.05 Spinal stenosis, thoracolumbar region
CPT/HCPCS: 70553; 72148; 82565

== ENCOUNTER 2020-11-27 10:36 | Outpatient (CLI) | payer MEDICARE ==
[2020-11-27] MEDS ORDERED: Magnevist 469MG/ML 20 ML VIAL ONE (15:13)
== END 2020-11-27 10:37 | disposition home or self-care (01) ==
LOC: TBSIIMAG 10:36
PROVIDERS: ATTEND Neurological Surgery
DX: C71.9 Malignant neoplasm of brain, unspecified (principal); G93.89 Other specified disorders of brain; Z98.890 Other specified postprocedural states
CPT/HCPCS: 70553; A9579

== ENCOUNTER 2021-06-06 14:37 | Outpatient (CLI) | payer MEDICARE | END 2021-06-06 14:38 | disposition home or self-care (01) | LOC: BICMAMMO 14:37 | PROVIDERS: ATTEND Internal Medicine Hematology & Oncology | DX: Z13.820 Encounter for screening for osteoporosis (principal); T88.7XXA Unspecified adverse effect of drug or medicament, initial encounter; T38.6X5A Adverse effect of antigonadotrophins, antiestrogens, antiandrogens, not elsewhere classified, initial encounter; M85.851 Other specified disorders of bone density and structure, right thigh; M85.852 Other specified disorders of bone density and structure, left thigh | CPT/HCPCS: 77080 ==

== ENCOUNTER 2021-07-16 13:30 | Outpatient (CLI) | payer MEDICARE | END 2021-07-16 13:31 | disposition home or self-care (01) | LOC: MRI 13:30 | PROVIDERS: ATTEND Radiology Radiation Oncology | DX: D32.0 Benign neoplasm of cerebral meninges (principal) | CPT/HCPCS: 70553; 82565 ==

== ENCOUNTER 2021-09-17 09:14 | Outpatient (CLI) | payer MEDICARE | END 2021-09-17 09:15 | disposition home or self-care (01) | LOC: MRI 09:14 | PROVIDERS: ATTEND Anesthesiology Pain Medicine | DX: M51.26 Other intervertebral disc displacement, lumbar region (principal); M47.816 Spondylosis without myelopathy or radiculopathy, lumbar region | CPT/HCPCS: 72148 ==

== ENCOUNTER 2021-11-22 16:41 | Emergency (ER) | payer MEDICARE | END 2021-11-22 17:46 | disposition home or self-care (01) | LOC: ERS 16:41 | DX: Z71.1 Person with feared health complaint in whom no diagnosis is made (principal); Z85.3 Personal history of malignant neoplasm of breast; Z79.899 Other long term (current) drug therapy | CPT/HCPCS: 36416; 99284 ==

== ENCOUNTER 2022-01-18 09:08 | Observation (INO) | payer MEDICARE ==
[2022-01-18 09:34] LABS: #Eosinphils 0.2 thou/uL (0.0-0.7); #Lymphocytes 1.1 thou/uL (1.20-3.40); #Monocytes 0.4 thou/uL (0.11-0.59); #Neutrophils 3.1 thou/uL (1.40-6.50); %Basophils 0.9 % (0.0-1.0); %Eosinophils 4.1 % (0.0-10.0); %Lymphocytes 22.8 % (21.0-51.0); %Monocytes 7.9 % (0.0-10.0); %Neutrophils 64.3 % (42.0-75.0); Hemoglobin 14.3 g/dL (12.0-16.0); Mean Corpuscular HGB CONC 33.2 g/dL (32.0-36.0); Mean Corpuscular Hemoglobin 33.5 pg (27.0-31.0); Mean Platelet Volume 7.3 fL (7.4-10.4); Platelet Count 169 thou/uL (130-400); RBC Distribution Width 11.9 % (11.5-14.5); Red Blood Cell (RBC) Count 4.27 mill/uL (4.20-5.40); White Blood Cell (WBC) Count 4.8 thou/uL (4.8-10.8)
[2022-01-18 09:48] LABS: Prothrombin Time 12.8 sec (12.0-14.7)
[2022-01-18] MEDS ORDERED: Aspirin Chewable 81 MG TAB ONE (09:55)
[2022-01-18 09:56] LABS: ALT (SGPT) 15 U/L (8-55); AST (SGOT) 19 U/L (5-34); Alkaline Phosphatase 60 U/L (40-110); Anion Gap 13 mmol/L (10-20); BUN (Urea Nitrogen) 16 mg/dL (9.8-20.1); Bilirubin, Total 0.4 mg/dL (0.2-1.2); Calc. Creatinine Clearance 0 mL/min (70-130); Calcium 10.1 mg/dL (7.8-10.44); Carbon Dioxide 28 mmol/L (23-31); Chloride 105 mmol/L (98-107); Globulin 3.1 g/dL (2.4-3.5); Glucose 146 mg/dL (83-110); Potassium 3.8 mmol/L (3.5-5.1); Protein, Total 7.1 g/dL (5.8-8.1); Sodium 142 mmol/L (136-145)
[2022-01-18 10:49] LABS: Bilirubin Negative (Negative); Blood, Urine Negative (Negative); Clarity Turbid (Clear); Glucose, Urine (Dipstick) Normal (Negative); Ketone, Urine Negative (Negative); Leukocyte Negative Leu/uL (Negative); Nitrite Negative (Negative); Protein, Urine (Dipstick) 10 mg/dL (Neg-Trace); Urobilinogen Normal mg/dL (Less than 2)
[2022-01-18] MEDS ORDERED: Ondansetron ODT 4 MG TAB PO PRN (12:26)
[2022-01-18] MEDS ORDERED: Ondansetron PF 4 MG/2 ML Vial IVP PRN (12:26)
[2022-01-18] MEDS ORDERED: hydrALAZINE 20 MG/ML VIAL SLOW IVP PRN (12:26)
[2022-01-18 12:36] LABS: Troponin I 0.012 ng/mL (< 0.028)
[2022-01-18 13:29] LABS: Magnesium 1.9 mg/dL (1.6-2.6)
[2022-01-18 13:33] LABS: SARS-CoV-2 NAA Rapid Test Not Detected (NotDetected)
[2022-01-18] MEDS ORDERED: Magnevist 469MG/ML 20 ML VIAL ONE (13:44)
[2022-01-18 15:51] LABS: Troponin I 0.013 ng/mL (< 0.028)
[2022-01-18 16:46] VITALS: BMI 24.0
[2022-01-18] MEDS: Atorvastatin Calcium 40 MG TAB PO SCH (20:45)
[2022-01-18] MEDS: Acetaminophen 325 MG TAB PO PRN (20:45)
[2022-01-19 05:12] LABS: #Eosinphils 0.2 thou/uL (0.0-0.7); #Lymphocytes 1.1 thou/uL (1.20-3.40); #Monocytes 0.7 thou/uL (0.11-0.59); #Neutrophils 3.5 thou/uL (1.40-6.50); %Basophils 0.3 % (0.0-1.0); %Eosinophils 3.8 % (0.0-10.0); %Lymphocytes 20.4 % (21.0-51.0); %Neutrophils 62.5 % (42.0-75.0); Hemoglobin 13.5 g/dL (12.0-16.0); Mean Corpuscular HGB CONC 33.5 g/dL (32.0-36.0); Mean Corpuscular Hemoglobin 33.7 pg (27.0-31.0); Mean Platelet Volume 7.1 fL (7.4-10.4); Platelet Count 158 thou/uL (130-400); RBC Distribution Width 11.8 % (11.5-14.5); Red Blood Cell (RBC) Count 4.01 mill/uL (4.20-5.40); White Blood Cell (WBC) Count 5.6 thou/uL (4.8-10.8)
[2022-01-19 05:41] LABS: Anion Gap 12 mmol/L (10-20); BUN (Urea Nitrogen) 18 mg/dL (9.8-20.1); Calc. Creatinine Clearance 65 mL/min (70-130); Calcium 9.7 mg/dL (7.8-10.44); Carbon Dioxide 25 mmol/L (23-31); Cardiac Risk 4.1 (Less than 4.5); Chloride 108 mmol/L (98-107); Cholesterol 198 mg/dl (< 200 Desired); Glucose 102 mg/dL (83-110); HDL Cholesterol 48 mg/dL (>60 Neg Risk); LDL Cholesterol, Calculated 124 mg/dL; Sodium 141 mmol/L (136-145); Triglycerides 130 mg/dL (Less than 150)
[2022-01-19] MEDS: Aspirin Chewable 81 MG TAB PO SCH (08:45)
[2022-01-19] MEDS ORDERED: Phenytoin 50 MG Chewable Tablet PO SCH (09:00)
[2022-01-19] MEDS ORDERED: hydrALAZINE 20 MG/ML VIAL SLOW IVP PRN (12:35)
[2022-01-19] MEDS: Phenytoin 50 MG Chewable Tablet PO SCH (20:37)
[2022-01-19] MEDS: Atorvastatin Calcium 40 MG TAB PO SCH (20:37)
[2022-01-20] MEDS: Phenytoin 50 MG Chewable Tablet PO SCH (08:30)
[2022-01-20] MEDS: Aspirin Chewable 81 MG TAB PO SCH (08:30)
[2022-01-20] MEDS: Acetaminophen 325 MG TAB PO PRN (08:41)
[2022-01-20 11:26] VITALS: BP 132/57; TEMP 98.1
== END 2022-01-20 14:57 | disposition home or self-care (01) ==
LOC: ERS 09:08 → NEURO 11:01
PROVIDERS: ADMIT Family Medicine; ATTEND Internal Medicine
DX: R47.81 Slurred speech (principal); R29.810 Facial weakness; Z20.822 Contact with and (suspected) exposure to COVID-19; R07.9 Chest pain, unspecified; I10 Essential (primary) hypertension; G40.909 Epilepsy, unspecified, not intractable, without status epilepticus; Z79.899 Other long term (current) drug therapy; Z91.041 Radiographic dye allergy status; Z85.3 Personal history of malignant neoplasm of breast; Z86.011 Personal history of benign neoplasm of the brain
CPT/HCPCS: 70450; 70553; 71045; 80048; 80061; 80185 ×2; 81003; 82962; 83735; 84484 ×2; 85025; 85610; 85730; 93005; 93306; 93880; 94760 ×2; 95712; 95819; 95957; 97116; 99285; U0002; 36415; 36416; 80053; 84443; 96374; A9579; G0378; Q0162; Q2009

== ENCOUNTER 2022-04-02 10:52 | Outpatient (CLI) | payer MEDICARE ==
[2022-04-02] MEDS ORDERED: Magnevist 469MG/ML 20 ML VIAL ONE (16:11)
== END 2022-04-02 10:53 | disposition home or self-care (01) ==
LOC: MRI 10:52
PROVIDERS: ATTEND Radiology Radiation Oncology
DX: D32.0 Benign neoplasm of cerebral meninges (principal); R22.0 Localized swelling, mass and lump, head
CPT/HCPCS: 70553; A9579

== ENCOUNTER 2023-06-17 18:36 | Emergency (ER) | payer OTHER, MEDICARE ==
[2023-06-17] MEDS ORDERED: Ondansetron PF 4 MG/2 ML Vial ONE (19:47)
[2023-06-17] MEDS ORDERED: Ketorolac Tromethamine 30 MG/ML VIAL ONE (19:47)
[2023-06-17] MEDS ORDERED: Morphine 4 MG/ML VIAL ONE (19:47)
[2023-06-17] MEDS ORDERED: Acetaminophen 500 MG TAB ONE (22:17)
== END 2023-06-17 21:29 | disposition home or self-care (01) ==
LOC: ERS 18:36
DX: S42.201A Unspecified fracture of upper end of right humerus, initial encounter for closed fracture (principal); M25.551 Pain in right hip; W01.0XXA Fall on same level from slipping, tripping and stumbling without subsequent striking against object, initial encounter; Z79.899 Other long term (current) drug therapy
CPT/HCPCS: 72170; 96374; 96375; J1885; J2270; J2405

== ENCOUNTER 2023-06-19 09:49 | Inpatient (IN) | payer MEDICARE ==
[2023-06-19 11:26] LABS: #Eosinphils 0.2 thou/uL (0.0-0.7); #Monocytes 1.3 thou/uL (0.11-0.59); %Basophils 0.2 % (0.0-1.0); %Eosinophils 2.3 % (0.0-10.0); %Lymphocytes 10.8 % (21.0-51.0); %Monocytes 13.9 % (0.0-10.0); %Neutrophils 72.6 % (42.0-75.0); Hematocrit 36.6 % (36.0-47.0); Hemoglobin 12.3 g/dL (12.0-16.0); Mean Corpuscular HGB CONC 33.6 g/dL (32.0-36.0); Mean Corpuscular Hemoglobin 32.7 pg (27.0-31.0); Mean Corpuscular Volume 97.3 fl (78.0-98.0); Mean Platelet Volume 9.6 fL (7.4-10.4); Platelet Count 188 10x3/uL (130-400); RBC Distribution Width 13.5 % (11.5-14.5); Red Blood Cell (RBC) Count 3.76 mill/uL (4.20-5.40); White Blood Cell (WBC) Count 9.6 10x3/uL (4.8-10.8)
[2023-06-19 11:46] LABS: ALT (SGPT) 20 U/L (8-55); AST (SGOT) 25 U/L (5-34); Albumin 3.4 g/dL (3.4-4.8); Alkaline Phosphatase 74 U/L (40-110); Anion Gap 13 mmol/L (10-20); BUN (Urea Nitrogen) 19 mg/dL (9.8-20.1); Bilirubin, Total 0.6 mg/dL (0.2-1.2); Calc. Creatinine Clearance 0 mL/min (70-130); Calcium 9.7 mg/dL (7.8-10.44); Carbon Dioxide 27 mmol/L (23-31); Chloride 105 mmol/L (98-107); Estimated GFR 88; Globulin 3.1 g/dL (2.4-3.5); Glucose 124 mg/dL (83-110); Protein, Total 6.5 g/dL (5.8-8.1); Sodium 141 mmol/L (136-145)
[2023-06-19] MEDS ORDERED: Ketorolac Tromethamine 30 MG/ML VIAL ONE ×2 (12:11→13:37)
[2023-06-19 12:35] LABS: Troponin I 0.046 ng/mL (< 0.028)
[2023-06-19] MEDS ORDERED: Nitroglycerin 0.4 MG TAB 1 EACH ONE (13:07)
[2023-06-19] MEDS ORDERED: Nitroglycerin 2% Ointment 1 INCH/1 GM Packet ONE (13:38)
[2023-06-19 15:16] LABS: Troponin I 0.049 ng/mL (< 0.028)
[2023-06-19] MEDS ORDERED: Ondansetron ODT 4 MG TAB PO PRN (15:49)
[2023-06-19] MEDS ORDERED: Acetaminophen 325 MG TAB PO PRN (15:49)
[2023-06-19] MEDS: Sodium Chloride 0.9% 1,000 ML IV SCH (17:39)
[2023-06-19 18:02] LABS: Bacteria/HPF None Seen HPF (None Seen); Bilirubin Negative (Negative); Blood, Urine Negative (Negative); CAUTI Indications for Culture Pelvic or flank pain; Clarity Clear (Clear); Glucose, Urine (Dipstick) Normal (Negative); Ketone, Urine Negative (Negative); Leukocyte Negative Leu/uL (Negative); Nitrite Negative (Negative); Protein, Urine (Dipstick) 10 mg/dL (Neg-Trace); RBC/HPF 0-3 HPF (0-3); Specific Gravity, Urine 1.024 (1.002-1.036); Squamous Epithelial 0-3 HPF (0-3); Urobilinogen Normal mg/dL (Less than 2); WBC/HPF 0-3 HPF (0-3); pH, Urine 6.5 (5.0-9.0)
[2023-06-19 18:03] LABS: Urine Culture Reflex No No
[2023-06-19 18:42] LABS: Dilantin 5.1 ug/mL (10.0-20.0)
[2023-06-19 18:49] LABS: Troponin I 0.056 ng/mL (< 0.028)
[2023-06-19] MEDS: HYDROcodone/Acetaminophen 5/325 mg Tablet PO PRN (20:37)
[2023-06-19 20:50] VITALS: BMI 24.9
[2023-06-20] MEDS: HYDROcodone/Acetaminophen 5/325 mg Tablet PO PRN ×3 (01:21→23:06)
[2023-06-20 05:31] LABS: Anion Gap 8 mmol/L (10-20); BUN (Urea Nitrogen) 21 mg/dL (9.8-20.1); Calc. Creatinine Clearance 72 mL/min (70-130); Calcium 8.6 mg/dL (7.8-10.44); Carbon Dioxide 25 mmol/L (23-31); Chloride 110 mmol/L (98-107); Estimated GFR 87; Glucose 111 mg/dL (83-110); Potassium 3.8 mmol/L (3.5-5.1); Sodium 139 mmol/L (136-145)
[2023-06-20] MEDS: Sodium Chloride 0.9% 1,000 ML IV SCH ×2 (06:10→22:00)
[2023-06-20] MEDS ORDERED: Isosorbide Mononitrate 30 MG ER.TAB PO SCH (09:00)
[2023-06-20] MEDS ORDERED: Phenytoin 50 MG Chewable Tablet PO SCH (09:00)
[2023-06-20] MEDS: Isosorbide Mononitrate 60 MG ER.TAB PO SCH (09:23)
[2023-06-20] MEDS: Magnesium Oxide 400 MG TAB PO SCH ×2 (09:23→22:00)
[2023-06-20] MEDS: Lidocaine 4% Patch TD SCH (09:31)
[2023-06-20] MEDS: Phenytoin Extended Release 100 MG CAP PO SCH ×3 (09:35→22:00)
[2023-06-20] MEDS: Transdermal Patch Removal TOP SCH (22:00)
[2023-06-21 06:10] LABS: Anion Gap 10 mmol/L (10-20); BUN (Urea Nitrogen) 12 mg/dL (9.8-20.1); Calc. Creatinine Clearance 76 mL/min (70-130); Calcium 8.7 mg/dL (7.8-10.44); Carbon Dioxide 26 mmol/L (23-31); Chloride 107 mmol/L (98-107); Estimated GFR 89; Glucose 108 mg/dL (83-110); Potassium 4.1 mmol/L (3.5-5.1); Sodium 139 mmol/L (136-145)
[2023-06-21 06:14] LABS: Troponin I 0.016 ng/mL (< 0.028)
[2023-06-21] MEDS: HYDROcodone/Acetaminophen 5/325 mg Tablet PO PRN ×3 (09:26→20:59)
[2023-06-21] MEDS: Isosorbide Mononitrate 60 MG ER.TAB PO SCH (09:26)
[2023-06-21] MEDS: Lidocaine 4% Patch TD SCH (09:26)
[2023-06-21] MEDS: Phenytoin Extended Release 100 MG CAP PO SCH ×3 (09:26→20:53)
[2023-06-21] MEDS: Magnesium Oxide 400 MG TAB PO SCH ×2 (09:26→21:00)
[2023-06-21] MEDS: Sodium Chloride 0.9% 1,000 ML IV SCH ×2 (12:30→21:40)
[2023-06-21] MEDS ORDERED: Amlodipine 5 MG TAB PO SCH (17:15)
[2023-06-21] MEDS: Transdermal Patch Removal TOP SCH (21:01)
[2023-06-22] MEDS: Magnesium Oxide 400 MG TAB PO SCH ×2 (08:52→20:42)
[2023-06-22] MEDS: Isosorbide Mononitrate 60 MG ER.TAB PO SCH (08:52)
[2023-06-22] MEDS: Amlodipine 5 MG TAB PO SCH (08:52)
[2023-06-22] MEDS: Lidocaine 4% Patch TD SCH (08:52)
[2023-06-22] MEDS ORDERED: FLU VACC QS2023(65UP)/MF59C/PF 60 MCG/0.5 ML SYRINGE IM ONE (09:00)
[2023-06-22] MEDS: HYDROcodone/Acetaminophen 5/325 mg Tablet PO PRN ×3 (09:13→16:56)
[2023-06-22] MEDS: Phenytoin Extended Release 100 MG CAP PO SCH ×3 (09:14→20:42)
[2023-06-22] MEDS: Sodium Chloride 0.9% 1,000 ML IV SCH (09:16)
[2023-06-22] MEDS: Transdermal Patch Removal TOP SCH (20:42)
[2023-06-23] MEDS: Sodium Chloride 0.9% 1,000 ML IV SCH ×2 (01:40→15:41)
[2023-06-23] MEDS: Phenytoin Extended Release 100 MG CAP PO SCH ×3 (08:10→20:36)
[2023-06-23] MEDS: Lidocaine 4% Patch TD SCH (08:10)
[2023-06-23] MEDS: Magnesium Oxide 400 MG TAB PO SCH ×2 (08:12→20:36)
[2023-06-23] MEDS: Amlodipine 5 MG TAB PO SCH (08:12)
[2023-06-23] MEDS: Isosorbide Mononitrate 60 MG ER.TAB PO SCH (08:12)
[2023-06-23] MEDS: HYDROcodone/Acetaminophen 5/325 mg Tablet PO PRN (10:27)
[2023-06-23] MEDS: Transdermal Patch Removal TOP SCH (20:36)
[2023-06-24] MEDS: Sodium Chloride 0.9% 1,000 ML IV SCH ×2 (05:10→16:56)
[2023-06-24] MEDS: Lidocaine 4% Patch TD SCH (08:50)
[2023-06-24] MEDS: Isosorbide Mononitrate 60 MG ER.TAB PO SCH (08:50)
[2023-06-24] MEDS: Magnesium Oxide 400 MG TAB PO SCH ×2 (08:50→20:55)
[2023-06-24] MEDS: Amlodipine 5 MG TAB PO SCH (08:50)
[2023-06-24] MEDS: Phenytoin Extended Release 100 MG CAP PO SCH ×3 (08:50→20:55)
[2023-06-24] MEDS: HYDROcodone/Acetaminophen 5/325 mg Tablet PO PRN ×2 (08:54→20:54)
[2023-06-24] MEDS ORDERED: Ketorolac Tromethamine 30 MG/ML VIAL IVP SCH (22:15)
[2023-06-24] MEDS: Transdermal Patch Removal TOP SCH (22:28)
[2023-06-25] MEDS: HYDROcodone/Acetaminophen 5/325 mg Tablet PO PRN ×3 (02:31→21:26)
[2023-06-25 04:42] LABS: #Eosinphils 0.2 thou/uL (0.0-0.7); #Neutrophils 3.7 thou/uL (1.40-6.50); %Basophils 0.6 % (0.0-1.0); %Eosinophils 3.6 % (0.0-10.0); %Monocytes 15.6 % (0.0-10.0); %Neutrophils 58.9 % (42.0-75.0); Hematocrit 36.4 % (36.0-47.0); Hemoglobin 12.3 g/dL (12.0-16.0); Mean Corpuscular HGB CONC 33.8 g/dL (32.0-36.0); Mean Corpuscular Hemoglobin 33.2 pg (27.0-31.0); Mean Corpuscular Volume 98.1 fl (78.0-98.0); Mean Platelet Volume 9.2 fL (7.4-10.4); Platelet Count 224 10x3/uL (130-400); RBC Distribution Width 13.8 % (11.5-14.5); Red Blood Cell (RBC) Count 3.71 mill/uL (4.20-5.40); White Blood Cell (WBC) Count 6.3 10x3/uL (4.8-10.8)
[2023-06-25 05:28] LABS: Anion Gap 12 mmol/L (10-20); BUN (Urea Nitrogen) 23 mg/dL (9.8-20.1); Calc. Creatinine Clearance 68 mL/min (70-130); Calcium 9.5 mg/dL (7.8-10.44); Carbon Dioxide 25 mmol/L (23-31); Chloride 104 mmol/L (98-107); Estimated GFR 81; Glucose 97 mg/dL (83-110); Potassium 4.2 mmol/L (3.5-5.1); Sodium 137 mmol/L (136-145)
[2023-06-25] MEDS: Sodium Chloride 0.9% 1,000 ML IV SCH ×2 (05:34→16:43)
[2023-06-25] MEDS: Isosorbide Mononitrate 60 MG ER.TAB PO SCH (08:59)
[2023-06-25] MEDS: Amlodipine 5 MG TAB PO SCH (08:59)
[2023-06-25] MEDS: Phenytoin Extended Release 100 MG CAP PO SCH ×3 (08:59→21:26)
[2023-06-25] MEDS: Magnesium Oxide 400 MG TAB PO SCH ×2 (09:00→21:26)
[2023-06-25] MEDS: Lidocaine 4% Patch TD SCH (09:00)
[2023-06-25] MEDS: Transdermal Patch Removal TOP SCH (21:26)
[2023-06-26] MEDS: HYDROcodone/Acetaminophen 5/325 mg Tablet PO PRN (05:25)
[2023-06-26 08:11] VITALS: BP 150/76; TEMP 98.3
[2023-06-26] MEDS: Phenytoin Extended Release 100 MG CAP PO SCH (08:12)
[2023-06-26] MEDS: Amlodipine 5 MG TAB PO SCH (08:12)
[2023-06-26] MEDS: Isosorbide Mononitrate 60 MG ER.TAB PO SCH (08:12)
[2023-06-26] MEDS: Magnesium Oxide 400 MG TAB PO SCH (08:12)
[2023-06-26] MEDS: Lidocaine 4% Patch TD SCH (08:13)
[2023-06-26] MEDS: Sodium Chloride 0.9% 1,000 ML IV SCH (08:13)
== END 2023-06-26 12:23 | disposition home or self-care (01) | DRG 562 ==
LOC: ERS 09:49 → ERHOLD 15:20 → 2NO 19:21 → MSONC 06-21 22:02
PROVIDERS: ADMIT Internal Medicine; ATTEND Internal Medicine
DX: S42.291A Other displaced fracture of upper end of right humerus, initial encounter for closed fracture (principal); I21.A1 Myocardial infarction type 2; I16.0 Hypertensive urgency; G40.909 Epilepsy, unspecified, not intractable, without status epilepticus; I10 Essential (primary) hypertension; D32.0 Benign neoplasm of cerebral meninges; Z91.041 Radiographic dye allergy status; Z79.899 Other long term (current) drug therapy; Z98.890 Other specified postprocedural states; Z90.12 Acquired absence of left breast and nipple; Z90.11 Acquired absence of right breast and nipple; Z90.49 Acquired absence of other specified parts of digestive tract; Z90.89 Acquired absence of other organs; M25.551 Pain in right hip; W01.0XXA Fall on same level from slipping, tripping and stumbling without subsequent striking against object, initial encounter
CPT/HCPCS: 36415; 70450; 70553; 71045; 72072; 72100; 72170; 80048; 80053; 80185; 81001; 82550; 83735; 84484; 85025; 93005; 93010; 93306; 96361; 96374; 96375; 96376; J1885; J2270; J2405; J7050; Q0162

== ENCOUNTER 2023-09-03 18:58 | Inpatient (IN) | payer MEDICARE ==
[2023-09-03 19:23] LABS: #Eosinphils 0.1 thou/uL (0.0-0.7); #Monocytes 0.8 thou/uL (0.11-0.59); #Neutrophils 4.8 thou/uL (1.40-6.50); %Basophils 0.6 % (0.0-1.0); %Eosinophils 1.7 % (0.0-10.0); %Lymphocytes 19.3 % (21.0-51.0); %Monocytes 11.2 % (0.0-10.0); %Neutrophils 66.9 % (42.0-75.0); Hematocrit 41.9 % (36.0-47.0); Mean Corpuscular HGB CONC 33.4 g/dL (32.0-36.0); Mean Corpuscular Hemoglobin 32.4 pg (27.0-31.0); Mean Platelet Volume 9.2 fL (7.4-10.4); Platelet Count 268 10x3/uL (130-400); RBC Distribution Width 12.7 % (11.5-14.5); Red Blood Cell (RBC) Count 4.32 mill/uL (4.20-5.40); White Blood Cell (WBC) Count 7.2 10x3/uL (4.8-10.8)
[2023-09-03] MEDS ORDERED: Ketorolac Tromethamine 30 MG (1 mL) VIAL ONE (19:36)
[2023-09-03] MEDS ORDERED: Sodium Chloride 0.9% 100 ML ONE (19:41)
[2023-09-03] MEDS ORDERED: Ampicillin/Sulbactam 3 GM VIAL ONE (19:41)
[2023-09-03 19:50] LABS: ALT (SGPT) 12 U/L (8-55); AST (SGOT) 16 U/L (5-34); Albumin 3.9 g/dL (3.4-4.8); Alkaline Phosphatase 108 U/L (40-110); Anion Gap 10 mmol/L (10-20); BUN (Urea Nitrogen) 20 mg/dL (9.8-20.1); Bilirubin, Total 0.2 mg/dL (0.2-1.2); Calc. Creatinine Clearance 0 mL/min (70-130); Carbon Dioxide 30 mmol/L (23-31); Chloride 104 mmol/L (98-107); Estimated GFR 73; Globulin 3.3 g/dL (2.4-3.5); Glucose 107 mg/dL (83-110); Potassium 3.9 mmol/L (3.5-5.1); Protein, Total 7.2 g/dL (5.8-8.1); Sodium 140 mmol/L (136-145)
[2023-09-04] MEDS: Phenytoin 100 MG (4 mL) UDCUP PO SCH (00:51)
[2023-09-04] MEDS: Phenytoin Extended Release 100 MG CAP PO SCH (01:24)
[2023-09-04] MEDS: Ampicillin/Sulbactam 3 GM in Sodium Chloride 0.9% 100 ML IVPB SCH (01:56)
[2023-09-04] MEDS: HYDROcodone/Acetaminophen 5/325 mg Tablet PO PRN (02:08)
[2023-09-04] MEDS: Vancomycin (BATCH) 1.5 GM in Premix 1 BAG IVPB SCH (03:04)
[2023-09-04] MEDS: Ondansetron PF 4 MG/2 ML Vial IVP PRN (04:34)
[2023-09-04] MEDS: Amlodipine 10 MG TAB PO SCH (08:09)
[2023-09-04] MEDS: Chlorhexidine Gluconate 15 ML UDCUP SSP SCH (08:10)
[2023-09-04] MEDS ORDERED: Vancomycin 1 GM in Premix 1 BAG IVPB SCH (14:00)
[2023-09-04 17:59] LABS: #Eosinphils 0.2 thou/uL (0.0-0.7); #Monocytes 0.7 thou/uL (0.11-0.59); #Neutrophils 4.3 thou/uL (1.40-6.50); %Basophils 0.6 % (0.0-1.0); %Eosinophils 2.4 % (0.0-10.0); %Lymphocytes 14.9 % (21.0-51.0); %Monocytes 11.8 % (0.0-10.0); %Neutrophils 70.1 % (42.0-75.0); Hematocrit 40.9 % (36.0-47.0); Hemoglobin 13.4 g/dL (12.0-16.0); Mean Corpuscular HGB CONC 32.8 g/dL (32.0-36.0); Mean Corpuscular Hemoglobin 31.1 pg (27.0-31.0); Mean Corpuscular Volume 94.9 fl (78.0-98.0); Mean Platelet Volume 9.3 fL (7.4-10.4); Platelet Count 250 10x3/uL (130-400); RBC Distribution Width 12.5 % (11.5-14.5); Red Blood Cell (RBC) Count 4.31 mill/uL (4.20-5.40); White Blood Cell (WBC) Count 6.2 10x3/uL (4.8-10.8)
[2023-09-04 18:26] LABS: Anion Gap 9 mmol/L (10-20); BUN (Urea Nitrogen) 12 mg/dL (9.8-20.1); Calc. Creatinine Clearance 69 mL/min (70-130); Calcium 8.7 mg/dL (7.8-10.44); Carbon Dioxide 26 mmol/L (23-31); Chloride 106 mmol/L (98-107); Estimated GFR 87; Glucose 80 mg/dL (83-110); Potassium 4.1 mmol/L (3.5-5.1); Sodium 137 mmol/L (136-145)
[2023-09-05 06:30] LABS: Anion Gap 11 mmol/L (10-20); BUN (Urea Nitrogen) 9 mg/dL (9.8-20.1); Calc. Creatinine Clearance 73 mL/min (70-130); Calcium 8.9 mg/dL (7.8-10.44); Carbon Dioxide 26 mmol/L (23-31); Chloride 107 mmol/L (98-107); Estimated GFR 89; Glucose 103 mg/dL (83-110); Potassium 3.9 mmol/L (3.5-5.1); Sodium 140 mmol/L (136-145)
[2023-09-05 07:38] LABS: #Basophils 0.1 thou/uL (0.0-0.2); #Eosinphils 0.2 thou/uL (0.0-0.7); #Monocytes 0.6 thou/uL (0.11-0.59); #Neutrophils 3.2 thou/uL (1.40-6.50); %Eosinophils 3.4 % (0.0-10.0); %Lymphocytes 20.5 % (21.0-51.0); %Monocytes 11.7 % (0.0-10.0); %Neutrophils 63.2 % (42.0-75.0); Hematocrit 39.1 % (36.0-47.0); Mean Corpuscular HGB CONC 33.2 g/dL (32.0-36.0); Mean Corpuscular Hemoglobin 31.9 pg (27.0-31.0); Mean Corpuscular Volume 95.8 fl (78.0-98.0); Mean Platelet Volume 9.7 fL (7.4-10.4); Platelet Count 246 10x3/uL (130-400); RBC Distribution Width 12.6 % (11.5-14.5); Red Blood Cell (RBC) Count 4.08 mill/uL (4.20-5.40)
[2023-09-05] MEDS: Carbamide Peroxide 6.5% Otic Drops 15 ml Bottle R EAR SCH (10:29)
[2023-09-07] MEDS: Acetaminophen 325 MG TAB PO PRN (20:12)
[2023-09-09] MEDS ORDERED: Bupivacaine 0.25% HCL 30 ML VIAL ONE (09:44)
[2023-09-09] MEDS ORDERED: Lidocaine 1% PF 5 ML VIAL ONE ×2 (09:44→10:09)
[2023-09-09] MEDS ORDERED: EPINEPHrine 1 MG/ML VIAL ONE (09:44)
[2023-09-09] MEDS ORDERED: Chlorhexidine Gluconate 15 ML UDCUP SSP ONE (09:45)
[2023-09-09] MEDS ORDERED: Lidocaine 2% 6 ML (Jelly) SYR ONE (09:59)
[2023-09-09] MEDS ORDERED: Oxymetazoline HCl 0.05% (30 ML BOT) ONE (09:59)
[2023-09-09] MEDS ORDERED: Rocuronium Bromide 10 MG/ML (10ML VIAL) ONE (10:09)
[2023-09-09] MEDS ORDERED: SUCCINYLCHOLINE/SOD CL,ISO/PF 200 MG/10 ML SYRINGE FS ONE (10:09)
[2023-09-09] MEDS ORDERED: Ondansetron PF 4 MG/2 ML Vial ONE (10:09)
[2023-09-09] MEDS ORDERED: PROPOFOL 20 ML ONE (10:09)
[2023-09-09] MEDS ORDERED: MINERAL OIL/WHITE PETROLATUM 3.5 GM TUBE ONE (10:12)
[2023-09-09] MEDS ORDERED: fentaNYL 50 mcg/mL 1 mL Vial ONE (10:13)
[2023-09-09] MEDS ORDERED: Dexamethasone 20 MG/5 ML VIAL ONE (10:43)
[2023-09-09] MEDS ORDERED: ePHEDrine Sulfate 50 MG/10 ML VIAL ONE (10:44)
[2023-09-09] MEDS ORDERED: Morphine Sulfate 2 MG/ML SYRINGE SLOW IVP PRN (11:06)
[2023-09-09] MEDS ORDERED: Promethazine HCl 25 MG/ML VIAL IM PRN (11:06)
[2023-09-09] MEDS ORDERED: Ondansetron HCl/PF 4 MG/2 ML Vial IVP PRN (11:06)
[2023-09-09] MEDS ORDERED: Glycopyrrolate 0.2 MG/ML 5 ML SYRINGE ONE (11:56)
[2023-09-09] MEDS ORDERED: NEOSTIGMINE 3 MG/3 ML SYR 3 MG/3 ML SYRINGE ONE (11:56)
[2023-09-09] MEDS ORDERED: Morphine 4 MG/ML VIAL ONE (12:38)
[2023-09-10] MEDS ORDERED: Sodium Bicarbonate 2.5 MEQ/5 ML SDV ONE (07:51)
[2023-09-10] MEDS ORDERED: Lidocaine 1% PF 5 ML VIAL ONE (07:51)
[2023-09-10 08:13] LABS: #Eosinphils 0.1 thou/uL (0.0-0.7); #Monocytes 0.7 thou/uL (0.11-0.59); #Neutrophils 4.6 thou/uL (1.40-6.50); %Basophils 0.4 % (0.0-1.0); %Eosinophils 1.6 % (0.0-10.0); %Lymphocytes 23.5 % (21.0-51.0); %Monocytes 9.5 % (0.0-10.0); %Neutrophils 64.9 % (42.0-75.0); Hematocrit 43.5 % (36.0-47.0); Hemoglobin 14.5 g/dL (12.0-16.0); Mean Corpuscular HGB CONC 33.3 g/dL (32.0-36.0); Mean Corpuscular Hemoglobin 32.1 pg (27.0-31.0); Mean Corpuscular Volume 96.2 fl (78.0-98.0); Mean Platelet Volume 9.2 fL (7.4-10.4); Platelet Count 246 10x3/uL (130-400); RBC Distribution Width 12.7 % (11.5-14.5); Red Blood Cell (RBC) Count 4.52 mill/uL (4.20-5.40)
[2023-09-10 08:34] LABS: Anion Gap 11 mmol/L (10-20); BUN (Urea Nitrogen) 11 mg/dL (9.8-20.1); Calc. Creatinine Clearance 68 mL/min (70-130); Calcium 9.7 mg/dL (7.8-10.44); Carbon Dioxide 27 mmol/L (23-31); Chloride 104 mmol/L (98-107); Estimated GFR 88; Glucose 90 mg/dL (83-110); Potassium 4.3 mmol/L (3.5-5.1); Sodium 138 mmol/L (136-145)
[2023-09-10 14:36] VITALS: BMI 23.2
[2023-09-15 05:01] LABS: #Eosinphils 0.4 thou/uL (0.0-0.7); #Monocytes 0.7 thou/uL (0.11-0.59); #Neutrophils 3.9 thou/uL (1.40-6.50); %Basophils 0.5 % (0.0-1.0); %Eosinophils 6.6 % (0.0-10.0); %Monocytes 10.7 % (0.0-10.0); Hematocrit 41.5 % (36.0-47.0); Hemoglobin 13.8 g/dL (12.0-16.0); Mean Corpuscular HGB CONC 33.3 g/dL (32.0-36.0); Mean Corpuscular Hemoglobin 32.1 pg (27.0-31.0); Mean Corpuscular Volume 96.5 fl (78.0-98.0); Mean Platelet Volume 9.3 fL (7.4-10.4); Platelet Count 221 10x3/uL (130-400); RBC Distribution Width 13.1 % (11.5-14.5); White Blood Cell (WBC) Count 6.3 10x3/uL (4.8-10.8)
[2023-09-15 05:38] LABS: Anion Gap 9 mmol/L (10-20); BUN (Urea Nitrogen) 16 mg/dL (9.8-20.1); Calc. Creatinine Clearance 66 mL/min (70-130); Calcium 9.4 mg/dL (7.8-10.44); Carbon Dioxide 29 mmol/L (23-31); Chloride 105 mmol/L (98-107); Estimated GFR 86; Glucose 100 mg/dL (83-110); Potassium 4.2 mmol/L (3.5-5.1); Sodium 139 mmol/L (136-145)
[2023-09-15] MEDS: Ibuprofen 600 MG TAB PO PRN (17:15)
[2023-09-16 08:13] VITALS: BP 122/69; TEMP 97.8
[2023-09-16] MEDS ORDERED: Acetaminophen 325 MG TAB PO SCH (18:00)
[2023-09-16] MEDS ORDERED: Ibuprofen 600 MG TAB PO SCH (22:00)
[2023-09-17 07:07] LABS: Reference Lab Name LABCORP
== END 2023-09-16 17:05 | disposition home or self-care (01) | DRG 159 ==
LOC: ERS 18:58 → T4-A 22:55
PROVIDERS: ADMIT Internal Medicine; ATTEND Family Medicine
PROC: 02HV33Z Insertion of Infusion Device into Superior Vena Cava, Percutaneous Approach (ICD-10-PCS; principal; 2023-09-10)
PROC: B5181ZA Fluoroscopy of Superior Vena Cava using Low Osmolar Contrast, Guidance (ICD-10-PCS; 2023-09-10)
PROC: 3E04329 Introduction of Other Anti-infective into Central Vein, Percutaneous Approach (ICD-10-PCS; 2023-09-10)
PROC: B548ZZA Ultrasonography of Superior Vena Cava, Guidance (ICD-10-PCS; 2023-09-10)
DX: M27.2 Inflammatory conditions of jaws (principal); D32.9 Benign neoplasm of meninges, unspecified; G40.909 Epilepsy, unspecified, not intractable, without status epilepticus; H61.21 Impacted cerumen, right ear; I10 Essential (primary) hypertension; Z88.8 Allergy status to other drugs, medicaments and biological substances; Z90.89 Acquired absence of other organs; Z79.899 Other long term (current) drug therapy; Z85.3 Personal history of malignant neoplasm of breast; Z90.49 Acquired absence of other specified parts of digestive tract; Z90.11 Acquired absence of right breast and nipple; Z90.12 Acquired absence of left breast and nipple; Z98.890 Other specified postprocedural states; Z79.2 Long term (current) use of antibiotics
CPT/HCPCS: 36415; 36569; 70491; 80048; 80053; 83605; 85025; 86140; 87040; 87070; 87076; 87205; 88305; 96365; 96366; 96375; C1713; C1751; J0171; J0295; J0665; J1100; J1885; J2270; J2405; J2704; J3010; J3370; J3490

== ENCOUNTER 2023-09-21 15:30 | Emergency (ER) | payer MEDICARE ==
[2023-09-21] MEDS ORDERED: Morphine 4 MG/ML VIAL ONE ×2 (16:06→16:11)
[2023-09-21] MEDS ORDERED: Ondansetron PF 4 MG/2 ML Vial ONE (16:06)
[2023-09-21] MEDS ORDERED: Ertapenem 1 GM in Sodium Chloride 0.9% 100 ML IVPB SCH (16:15)
== END 2023-09-21 17:23 | disposition home or self-care (01) ==
LOC: ERS 15:30
DX: S02.40CA Maxillary fracture, right side, initial encounter for closed fracture (principal); S02.40EA Zygomatic fracture, right side, initial encounter for closed fracture; W01.10XA Fall on same level from slipping, tripping and stumbling with subsequent striking against unspecified object, initial encounter; Z55.6 Problems related to health literacy; Z75.3 Unavailability and inaccessibility of health-care facilities
CPT/HCPCS: 70450; 72125; 72131; 96365; 96375; J1335; J2270; J2405; J3490

== ENCOUNTER 2023-09-22 12:18 | Inpatient (IN) | payer MEDICARE ==
[2023-09-22 13:23] LABS: #Basophils 0.1 thou/uL (0.0-0.2); #Eosinphils 0.1 thou/uL (0.0-0.7); #Monocytes 0.9 thou/uL (0.11-0.59); #Neutrophils 5.6 thou/uL (1.40-6.50); %Basophils 0.7 % (0.0-1.0); %Eosinophils 0.8 % (0.0-10.0); %Lymphocytes 12.8 % (21.0-51.0); %Monocytes 11.3 % (0.0-10.0); %Neutrophils 74.1 % (42.0-75.0); Hematocrit 40.2 % (36.0-47.0); Hemoglobin 13.7 g/dL (12.0-16.0); Mean Corpuscular HGB CONC 34.1 g/dL (32.0-36.0); Mean Corpuscular Hemoglobin 32.3 pg (27.0-31.0); Mean Corpuscular Volume 94.8 fl (78.0-98.0); Mean Platelet Volume 9.6 fL (7.4-10.4); Platelet Count 187 10x3/uL (130-400); RBC Distribution Width 13.1 % (11.5-14.5); Red Blood Cell (RBC) Count 4.24 mill/uL (4.20-5.40); White Blood Cell (WBC) Count 7.5 10x3/uL (4.8-10.8)
[2023-09-22 13:40] LABS: ALT (SGPT) 23 U/L (8-55); AST (SGOT) 39 U/L (5-34); Albumin 3.9 g/dL (3.4-4.8); Alkaline Phosphatase 115 U/L (40-110); Anion Gap 9 mmol/L (10-20); BUN (Urea Nitrogen) 18 mg/dL (9.8-20.1); Bilirubin, Total 0.5 mg/dL (0.2-1.2); Calc. Creatinine Clearance 0 mL/min (70-130); Calcium 9.9 mg/dL (7.8-10.44); Carbon Dioxide 29 mmol/L (23-31); Chloride 105 mmol/L (98-107); Estimated GFR 90; Globulin 2.9 g/dL (2.4-3.5); Glucose 138 mg/dL (83-110); Lipase 10 U/L (8-78); Magnesium 1.9 mg/dL (1.6-2.6); Potassium 3.8 mmol/L (3.5-5.1); Protein, Total 6.8 g/dL (5.8-8.1); Sodium 139 mmol/L (136-145)
[2023-09-22 13:44] LABS: Troponin I Less than 0.010 ng/mL (< 0.028)
[2023-09-22] MEDS ORDERED: Morphine 2 MG/ML VIAL ONE (14:33)
[2023-09-22 18:23] LABS: Bacteria/HPF None Seen HPF (None Seen); Bilirubin Negative (Negative); Blood, Urine Negative (Negative); CAUTI Indications for Culture Pelvic or flank pain; Clarity Extra Turbid (Clear); Glucose, Urine (Dipstick) Normal (Negative); Ketone, Urine Negative (Negative); Leukocyte Negative Leu/uL (Negative); Nitrite Negative (Negative); Protein, Urine (Dipstick) 10 mg/dL (Neg-Trace); RBC/HPF 0-3 HPF (0-3); Specific Gravity, Urine 1.018 (1.002-1.036); Squamous Epithelial 0-3 HPF (0-3); Urobilinogen Normal mg/dL (Less than 2); WBC/HPF 0-3 HPF (0-3)
[2023-09-22 18:24] LABS: Urine Culture Reflex No No
[2023-09-22] MEDS ORDERED: Labetalol HCl 100 MG/20 ML VIAL ONE (18:52)
[2023-09-22] MEDS ORDERED: Senokot S 8.6-50 MG TAB PO PRN (19:01)
[2023-09-22] MEDS ORDERED: Calcium Carbonate 500 MG ChewTAB PO PRN (19:01)
[2023-09-22] MEDS ORDERED: Morphine 2 MG/ML VIAL SLOW IVP PRN (19:59)
[2023-09-22 20:05] VITALS: BMI 23.5
[2023-09-22] MEDS: Meropenem 1 GM in Sodium Chloride 0.9% 100 ML IVPB SCH (20:39)
[2023-09-22] MEDS: Ampicillin/Sulbactam 3 GM in Sodium Chloride 0.9% 100 ML IVPB SCH (20:39)
[2023-09-22] MEDS: Chlorhexidine Gluconate 15 ML UDCUP SSP SCH (20:40)
[2023-09-22] MEDS: Phenytoin Extended Release 100 MG CAP PO SCH (20:40)
[2023-09-23 06:34] LABS: #Basophils 0.1 thou/uL (0.0-0.2); #Eosinphils 0.3 thou/uL (0.0-0.7); #Monocytes 0.8 thou/uL (0.11-0.59); #Neutrophils 5.7 thou/uL (1.40-6.50); %Basophils 0.6 % (0.0-1.0); %Eosinophils 3.2 % (0.0-10.0); %Lymphocytes 13.7 % (21.0-51.0); %Monocytes 9.6 % (0.0-10.0); %Neutrophils 72.8 % (42.0-75.0); Hematocrit 41.7 % (36.0-47.0); Hemoglobin 13.9 g/dL (12.0-16.0); Mean Corpuscular HGB CONC 33.3 g/dL (32.0-36.0); Mean Corpuscular Hemoglobin 32.1 pg (27.0-31.0); Mean Corpuscular Volume 96.3 fl (78.0-98.0); Mean Platelet Volume 9.7 fL (7.4-10.4); Platelet Count 177 10x3/uL (130-400); RBC Distribution Width 13.2 % (11.5-14.5); Red Blood Cell (RBC) Count 4.33 mill/uL (4.20-5.40); White Blood Cell (WBC) Count 7.8 10x3/uL (4.8-10.8)
[2023-09-23] MEDS: Ondansetron PF 4 MG/2 ML Vial IVP PRN (06:47)
[2023-09-23 07:05] LABS: ALT (SGPT) 22 U/L (8-55); AST (SGOT) 37 U/L (5-34); Albumin 3.7 g/dL (3.4-4.8); Alkaline Phosphatase 112 U/L (40-110); Anion Gap 14 mmol/L (10-20); BUN (Urea Nitrogen) 12 mg/dL (9.8-20.1); Bilirubin, Total 0.4 mg/dL (0.2-1.2); Calc. Creatinine Clearance 71 mL/min (70-130); Calcium 9.1 mg/dL (7.8-10.44); Carbon Dioxide 26 mmol/L (23-31); Chloride 105 mmol/L (98-107); Estimated GFR 89; Glucose 107 mg/dL (83-110); Potassium 3.8 mmol/L (3.5-5.1); Protein, Total 6.7 g/dL (5.8-8.1); Sodium 141 mmol/L (136-145)
[2023-09-23] MEDS: Amlodipine 10 MG TAB PO SCH (09:18)
[2023-09-23] MEDS: Enoxaparin 40 MG (0.4 mL) SYRINGE SC SCH (09:19)
[2023-09-23] MEDS ORDERED: Meropenem 1 GM in Sodium Chloride 0.9% 100 ML IVPB SCH (14:00)
[2023-09-23] MEDS: Meropenem 1 GM in Sodium Chloride 0.9% 100 ML IVPB SCH ×2 (14:12→20:42)
[2023-09-23] MEDS: Phenytoin Extended Release 100 MG CAP PO SCH (20:41)
[2023-09-23] MEDS: Acetaminophen 325 MG TAB PO PRN (20:42)
[2023-09-24 04:56] LABS: #Eosinphils 0.3 thou/uL (0.0-0.7); #Monocytes 0.7 thou/uL (0.11-0.59); %Basophils 0.8 % (0.0-1.0); %Eosinophils 5.6 % (0.0-10.0); %Lymphocytes 17.3 % (21.0-51.0); %Monocytes 13.6 % (0.0-10.0); %Neutrophils 62.5 % (42.0-75.0); Hematocrit 42.4 % (36.0-47.0); Hemoglobin 13.9 g/dL (12.0-16.0); Mean Corpuscular HGB CONC 32.8 g/dL (32.0-36.0); Mean Corpuscular Hemoglobin 31.7 pg (27.0-31.0); Mean Corpuscular Volume 96.6 fl (78.0-98.0); Mean Platelet Volume 9.9 fL (7.4-10.4); Platelet Count 147 10x3/uL (130-400); RBC Distribution Width 13.1 % (11.5-14.5); Red Blood Cell (RBC) Count 4.39 mill/uL (4.20-5.40); White Blood Cell (WBC) Count 4.8 10x3/uL (4.8-10.8)
[2023-09-24 05:24] LABS: Anion Gap 11 mmol/L (10-20); BUN (Urea Nitrogen) 13 mg/dL (9.8-20.1); Calc. Creatinine Clearance 72 mL/min (70-130); Calcium 8.9 mg/dL (7.8-10.44); Carbon Dioxide 26 mmol/L (23-31); Chloride 108 mmol/L (98-107); Estimated GFR 89; Glucose 105 mg/dL (83-110); Sodium 141 mmol/L (136-145)
[2023-09-25 04:35] LABS: #Eosinphils 0.2 thou/uL (0.0-0.7); #Monocytes 0.6 thou/uL (0.11-0.59); #Neutrophils 3.1 thou/uL (1.40-6.50); %Basophils 0.4 % (0.0-1.0); %Eosinophils 4.3 % (0.0-10.0); %Lymphocytes 26.2 % (21.0-51.0); %Monocytes 11.6 % (0.0-10.0); %Neutrophils 57.3 % (42.0-75.0); Hematocrit 41.9 % (36.0-47.0); Hemoglobin 14.1 g/dL (12.0-16.0); Mean Corpuscular HGB CONC 33.7 g/dL (32.0-36.0); Mean Corpuscular Hemoglobin 32.1 pg (27.0-31.0); Mean Corpuscular Volume 95.4 fl (78.0-98.0); Mean Platelet Volume 9.8 fL (7.4-10.4); Platelet Count 178 10x3/uL (130-400); RBC Distribution Width 13.1 % (11.5-14.5); Red Blood Cell (RBC) Count 4.39 mill/uL (4.20-5.40); White Blood Cell (WBC) Count 5.4 10x3/uL (4.8-10.8)
[2023-09-25 05:01] LABS: Anion Gap 11 mmol/L (10-20); BUN (Urea Nitrogen) 17 mg/dL (9.8-20.1); Calc. Creatinine Clearance 70 mL/min (70-130); Calcium 9.3 mg/dL (7.8-10.44); Carbon Dioxide 26 mmol/L (23-31); Chloride 108 mmol/L (98-107); Estimated GFR 89; Glucose 99 mg/dL (83-110); Potassium 4.2 mmol/L (3.5-5.1); Sodium 141 mmol/L (136-145)
[2023-09-26 05:09] LABS: #Eosinphils 0.2 thou/uL (0.0-0.7); #Monocytes 0.7 thou/uL (0.11-0.59); #Neutrophils 3.4 thou/uL (1.40-6.50); %Basophils 0.7 % (0.0-1.0); %Eosinophils 4.1 % (0.0-10.0); %Lymphocytes 19.1 % (21.0-51.0); %Monocytes 12.4 % (0.0-10.0); %Neutrophils 63.5 % (42.0-75.0); Hematocrit 43.7 % (36.0-47.0); Hemoglobin 14.6 g/dL (12.0-16.0); Mean Corpuscular HGB CONC 33.4 g/dL (32.0-36.0); Mean Corpuscular Hemoglobin 32.2 pg (27.0-31.0); Mean Corpuscular Volume 96.3 fl (78.0-98.0); Mean Platelet Volume 9.4 fL (7.4-10.4); Platelet Count 182 10x3/uL (130-400); RBC Distribution Width 13.2 % (11.5-14.5); Red Blood Cell (RBC) Count 4.54 mill/uL (4.20-5.40); White Blood Cell (WBC) Count 5.4 10x3/uL (4.8-10.8)
[2023-09-26 05:57] LABS: Anion Gap 12 mmol/L (10-20); BUN (Urea Nitrogen) 14 mg/dL (9.8-20.1); Calc. Creatinine Clearance 73 mL/min (70-130); Calcium 9.1 mg/dL (7.8-10.44); Carbon Dioxide 28 mmol/L (23-31); Chloride 106 mmol/L (98-107); Estimated GFR 90; Glucose 103 mg/dL (83-110); Sodium 142 mmol/L (136-145)
[2023-09-27 08:52] LABS: #Eosinphils 0.2 thou/uL (0.0-0.7); #Monocytes 0.5 thou/uL (0.11-0.59); #Neutrophils 2.9 thou/uL (1.40-6.50); %Basophils 0.9 % (0.0-1.0); %Eosinophils 4.9 % (0.0-10.0); %Lymphocytes 21.7 % (21.0-51.0); %Monocytes 11.3 % (0.0-10.0); Hematocrit 46.3 % (36.0-47.0); Hemoglobin 15.7 g/dL (12.0-16.0); Mean Corpuscular HGB CONC 33.9 g/dL (32.0-36.0); Mean Corpuscular Hemoglobin 32.3 pg (27.0-31.0); Mean Corpuscular Volume 95.3 fl (78.0-98.0); Mean Platelet Volume 9.2 fL (7.4-10.4); Platelet Count 184 10x3/uL (130-400); RBC Distribution Width 13.2 % (11.5-14.5); Red Blood Cell (RBC) Count 4.86 mill/uL (4.20-5.40); White Blood Cell (WBC) Count 4.7 10x3/uL (4.8-10.8)
[2023-09-27 09:06] LABS: Anion Gap 13 mmol/L (10-20); BUN (Urea Nitrogen) 12 mg/dL (9.8-20.1); Calc. Creatinine Clearance 67 mL/min (70-130); Carbon Dioxide 27 mmol/L (23-31); Chloride 104 mmol/L (98-107); Estimated GFR 86; Glucose 162 mg/dL (83-110); Potassium 4.1 mmol/L (3.5-5.1); Sodium 140 mmol/L (136-145)
[2023-09-27 19:59] VITALS: BP 153/74; TEMP 97.6
== END 2023-09-27 21:59 | DRG 159 ==
LOC: ERS 12:18 → SUATTDRO 12:18 → T4-B 19:06 → OBSVTOIN 09-24 12:31
PROVIDERS: ADMIT Internal Medicine; ATTEND Internal Medicine
DX: S02.40CA Maxillary fracture, right side, initial encounter for closed fracture (principal); R53.81 Other malaise; S02.40EA Zygomatic fracture, right side, initial encounter for closed fracture; I10 Essential (primary) hypertension; W19.XXXA Unspecified fall, initial encounter; R53.1 Weakness; M27.2 Inflammatory conditions of jaws; G40.909 Epilepsy, unspecified, not intractable, without status epilepticus; Z91.041 Radiographic dye allergy status; Z79.899 Other long term (current) drug therapy; W01.10XA Fall on same level from slipping, tripping and stumbling with subsequent striking against unspecified object, initial encounter; Z55.6 Problems related to health literacy; Z75.3 Unavailability and inaccessibility of health-care facilities
CPT/HCPCS: 70450; 71045; 72125; 72131; 80048; 80053; 81001; 83605; 83690; 83735; 84484; 85025; 86140; 93005; 96365; 96372; 96374; 96375; 96376; G0378; J0295; J1335; J1650; J2185; J2270; J2272; J2405; J3490

== ENCOUNTER 2023-12-26 09:49 | Inpatient (IN) | payer MEDICARE ==
[2023-12-26] MEDS ORDERED: Morphine 4 MG/ML VIAL ONE ×2 (10:53→11:25)
[2023-12-26] MEDS ORDERED: Ketorolac Tromethamine 30 MG (1 mL) VIAL ONE (11:25)
[2023-12-26] MEDS ORDERED: Ondansetron PF 4 MG/2 ML Vial ONE (11:25)
[2023-12-26] MEDS ORDERED: Dextrose 50% Abboject 50 ML SYRINGE SLOW IVP PRN (11:30)
[2023-12-26] MEDS ORDERED: Ondansetron ODT 4 MG TAB PO PRN (11:30)
[2023-12-26] MEDS ORDERED: Glucagon 1 MG/ML KIT IM PRN (11:30)
[2023-12-26] MEDS ORDERED: Morphine 2 MG/ML VIAL SLOW IVP PRN (11:30)
[2023-12-26] MEDS ORDERED: Ipratropium/Albuterol 3 ML NEB NEB PRN (11:30)
[2023-12-26] MEDS ORDERED: Dextrose 5% in Water 1,000 ML IV PRN (11:30)
[2023-12-26 12:15] LABS: #Basophils 0.03 10x3/uL (0.0-0.2); %Basophils 0.3 % (0.0-1.0); %Eosinophils 1.7 % (0.0-10.0); %Lymphocytes 11.1 % (21.0-51.0); %Monocytes 8.6 % (0.0-10.0); %Neutrophils 77.6 % (42.0-75.0); Hematocrit 44.8 % (36.0-47.0); Hemoglobin 14.8 g/dL (12.0-16.0); Mean Corpuscular Hemoglobin 32.7 pg (27.0-31.0); Mean Corpuscular Volume 99.1 fL (78.0-98.0); Mean Platelet Volume 10.1 fL (7.4-10.4); Platelet Count 177 10x3/uL (130-400); RBC Distribution Width 13.5 % (11.5-14.5); Red Blood Cell (RBC) Count 4.52 mill/uL (4.20-5.40)
[2023-12-26 12:32] LABS: ALT (SGPT) 14 U/L (8-55); AST (SGOT) 22 U/L (5-34); Albumin 3.8 g/dL (3.4-4.8); Alkaline Phosphatase 103 U/L (40-110); Anion Gap 13 mmol/L (10-20); BUN (Urea Nitrogen) 17 mg/dL (9.8-20.1); Bilirubin, Total 0.3 mg/dL (0.2-1.2); Calc. Creatinine Clearance 0 mL/min (70-130); Carbon Dioxide 27 mmol/L (23-31); Chloride 105 mmol/L (98-107); Estimated GFR 90; Globulin 3.2 g/dL (2.4-3.5); Glucose 103 mg/dL (83-110); Potassium 3.9 mmol/L (3.5-5.1); Sodium 141 mmol/L (136-145)
[2023-12-26 12:39] LABS: Troponin I Less than 0.010 ng/mL (< 0.028)
[2023-12-26 14:22] VITALS: BMI 24.2
[2023-12-26] MEDS: HYDROcodone/Acetaminophen 5/325 mg Tablet PO PRN (14:40)
[2023-12-26] MEDS: hydrALAZINE 20 MG/ML VIAL SLOW IVP PRN (14:41)
[2023-12-26] MEDS ORDERED: hydrALAZINE 25 MG TAB PO PRN (15:16)
[2023-12-26 15:36] LABS: Dilantin 10.7 ug/mL (10.0-20.0)
[2023-12-26 15:38] LABS: Phosphorus 3.3 mg/dL (2.3-4.7)
[2023-12-26 15:43] LABS: Troponin I 0.011 ng/mL (< 0.028)
[2023-12-26] MEDS: Amlodipine 5 MG TAB PO SCH ×2 (16:20→20:11)
[2023-12-26] MEDS: Calcium Carbonate 600 MG + Vit D TAB PO SCH (16:25)
[2023-12-26] MEDS: Morphine 4 MG/ML VIAL SLOW IVP PRN (16:26)
[2023-12-26 19:16] LABS: Troponin I 0.021 ng/mL (< 0.028)
[2023-12-26] MEDS: Phenytoin Extended Release 100 MG CAP PO SCH (20:11)
[2023-12-26] MEDS: Famotidine 20 MG TAB PO SCH (20:11)
[2023-12-27 06:08] LABS: #Basophils 0.05 10x3/uL (0.0-0.2); %Basophils 0.4 % (0.0-1.0); %Eosinophils 2.2 % (0.0-10.0); %Lymphocytes 6.3 % (21.0-51.0); %Monocytes 8.3 % (0.0-10.0); %Neutrophils 82.4 % (42.0-75.0); Hematocrit 48.7 % (36.0-47.0); Hemoglobin 15.5 g/dL (12.0-16.0); Mean Corpuscular HGB CONC 31.8 g/dL (32.0-36.0); Mean Corpuscular Volume 100.6 fL (78.0-98.0); Mean Platelet Volume 9.3 fL (7.4-10.4); Platelet Count 142 10x3/uL (130-400); RBC Distribution Width 13.6 % (11.5-14.5); Red Blood Cell (RBC) Count 4.84 mill/uL (4.20-5.40)
[2023-12-27 06:31] LABS: Anion Gap 19 mmol/L (10-20); BUN (Urea Nitrogen) 13 mg/dL (9.8-20.1); Calc. Creatinine Clearance 70 mL/min (70-130); Calcium 9.5 mg/dL (7.8-10.44); Carbon Dioxide 22 mmol/L (23-31); Chloride 102 mmol/L (98-107); Estimated GFR 87; Glucose 123 mg/dL (83-110); Potassium 4.9 mmol/L (3.5-5.1); Sodium 138 mmol/L (136-145)
[2023-12-27] MEDS ORDERED: CEFAZOLIN 2 GM in Sodium Chloride 0.9% 100 ML IVPB SCH (08:15)
[2023-12-27] MEDS: Escitalopram Oxalate 10 mg Tablet PO SCH (09:34)
[2023-12-27] MEDS: Docusate 100 MG CAP PO SCH (12:00)
[2023-12-27] MEDS: Cyanocobalamin (Vitamin B-12) 1,000 MCG TAB PO SCH (12:00)
[2023-12-27] MEDS ORDERED: CEFAZOLIN 2 GM VIAL ONE (13:15)
[2023-12-27] MEDS ORDERED: Sodium Chloride 0.9% 100 ML ONE (13:16)
[2023-12-27] MEDS ORDERED: Lidocaine 1% PF 5 ML VIAL ONE (13:18)
[2023-12-27] MEDS ORDERED: PROPOFOL 20 ML ONE (13:19)
[2023-12-27] MEDS ORDERED: PHENYLEPHRINE-NS 100 MCG/ML 10 ML SYRINGE ONE (13:46)
[2023-12-27] MEDS ORDERED: fentaNYL PF 100 MCG/2 ML SYRINGE ONE (13:53)
[2023-12-27] MEDS ORDERED: Dexamethasone 20 MG/5 ML VIAL ONE (14:05)
[2023-12-27] MEDS ORDERED: Ondansetron PF 4 MG/2 ML Vial ONE (14:05)
[2023-12-27] MEDS: Acetaminophen 325 MG TAB PO PRN (20:46)
[2023-12-27] MEDS: CEFAZOLIN 2 GM in Sodium Chloride 0.9% 100 ML IVPB SCH (20:47)
[2023-12-28 05:37] LABS: #Basophils Less than 0.03 10x3/uL (0.0-0.2); %Basophils 0.2 % (0.0-1.0); %Eosinophils 2.8 % (0.0-10.0); %Lymphocytes 7.8 % (21.0-51.0); %Monocytes 9.7 % (0.0-10.0); %Neutrophils 79.2 % (42.0-75.0); Hematocrit 38.5 % (36.0-47.0); Hemoglobin 12.7 g/dL (12.0-16.0); Mean Corpuscular Hemoglobin 32.6 pg (27.0-31.0); Mean Platelet Volume 9.6 fL (7.4-10.4); Platelet Count 131 10x3/uL (130-400); RBC Distribution Width 13.5 % (11.5-14.5); Red Blood Cell (RBC) Count 3.89 mill/uL (4.20-5.40)
[2023-12-28 05:54] LABS: Dilantin 8.2 ug/mL (10.0-20.0)
[2023-12-28] MEDS: Aspirin 81 mg Enteric Coated Tablet PO SCH (08:50)
[2023-12-28] MEDS: Ondansetron PF 4 MG/2 ML Vial IVP PRN (13:19)
[2023-12-28] MEDS: traMADol HCl 50 MG TAB PO PRN (14:23)
[2023-12-29 05:54] LABS: #Basophils Less than 0.03 10x3/uL (0.0-0.2); %Basophils 0.2 % (0.0-1.0); %Lymphocytes 8.7 % (21.0-51.0); %Monocytes 12.7 % (0.0-10.0); %Neutrophils 73.9 % (42.0-75.0); Hematocrit 34.6 % (36.0-47.0); Hemoglobin 11.7 g/dL (12.0-16.0); Mean Corpuscular HGB CONC 33.8 g/dL (32.0-36.0); Mean Corpuscular Hemoglobin 32.7 pg (27.0-31.0); Mean Corpuscular Volume 96.6 fL (78.0-98.0); Platelet Count 142 10x3/uL (130-400); RBC Distribution Width 13.2 % (11.5-14.5); Red Blood Cell (RBC) Count 3.58 mill/uL (4.20-5.40)
[2023-12-30] MEDS: Aspirin 81 mg Enteric Coated Tablet PO SCH (09:57)
[2023-12-30] MEDS ORDERED: Chlorhexidine Gluconate 15 ML UDCUP SSP PRN (10:24)
[2023-12-30 15:22] VITALS: TEMP 97.5
[2023-12-31 00:01] VITALS: BP 132/61
== END 2023-12-30 21:40 | DRG 522 ==
LOC: ERS 09:49 → SURG A 12:47
PROVIDERS: ADMIT Surgery; ATTEND Internal Medicine
PROC: 0SRS0JZ Replacement of Left Hip Joint, Femoral Surface with Synthetic Substitute, Open Approach (ICD-10-PCS; principal; 2023-12-28)
DX: S72.002A Fracture of unspecified part of neck of left femur, initial encounter for closed fracture (principal); M86.9 Osteomyelitis, unspecified; I50.32 Chronic diastolic (congestive) heart failure; F41.9 Anxiety disorder, unspecified; G40.909 Epilepsy, unspecified, not intractable, without status epilepticus; I11.0 Hypertensive heart disease with heart failure; Z85.3 Personal history of malignant neoplasm of breast; Z90.49 Acquired absence of other specified parts of digestive tract; Z90.89 Acquired absence of other organs; Z79.899 Other long term (current) drug therapy
CPT/HCPCS: 36415; 71045; 72170; 80048; 80053; 80185; 82306; 83735; 84100; 84484; 85025; 93005; 96374; 96375; 96376; C1776; G0390; J0360; J1100; J1885; J2270; J2405; J2704; J3490

== ENCOUNTER 2024-08-22 19:43 | Inpatient (IN) | payer MEDICARE ==
[~2024-08-22 19:43] MED LIST changes: -Iopamidol 370 76% 50 ML VIAL FS ONE; +Iopamidol-370 76% 500 ML MDV (1 ML CHARGE) ONE
[2024-08-22 20:40] LABS: #Basophils 0.04 10x3/uL (0.0-0.2); %Basophils 0.8 % (0.0-1.0); %Eosinophils 4.2 % (0.0-10.0); %Lymphocytes 20.7 % (21.0-51.0); %Neutrophils 62.1 % (42.0-75.0); Hematocrit 38.1 % (36.0-47.0); Hemoglobin 12.3 g/dL (12.0-16.0); Mean Corpuscular HGB CONC 32.3 g/dL (32.0-36.0); Mean Corpuscular Hemoglobin 32.3 pg (27.0-31.0); Mean Platelet Volume 9.3 fL (7.4-10.4); Platelet Count 187 10x3/uL (130-400); Red Blood Cell (RBC) Count 3.81 mill/uL (4.20-5.40)
[2024-08-22 20:58] LABS: Bilirubin 1+ (Negative); Blood, Urine Negative (Negative); CAUTI Indications for Culture Alt mental st,lethar; Clarity Turbid (Clear); Glucose, Urine (Dipstick) Normal (Negative); Ketone, Urine Negative (Negative); Leukocyte Negative Leu/uL (Negative); Nitrite 1+ (Negative); Protein, Urine (Dipstick) 10 mg/dL (Neg-Trace); RBC/HPF 0-3 HPF (0-3); Specific Gravity, Urine 1.017 (1.002-1.036); WBC/HPF 0-3 HPF (0-3)
[2024-08-22 21:02] LABS: Bacteria/HPF 1+ HPF (None Seen)
[2024-08-22 21:03] LABS: Urine Culture Reflex No No
[2024-08-22 21:14] LABS: ALT (SGPT) 8 U/L (Less than 34); AST (SGOT) 25 U/L (11-34); Alkaline Phosphatase 108 U/L (40-110); Anion Gap 12 mmol/L (10-20); BUN (Urea Nitrogen) 14 mg/dL (9.8-20.1); Bilirubin, Total 0.4 mg/dL (0.3-1.2); Calc. Creatinine Clearance 0 mL/min (70-130); Calcium 9.9 mg/dL (7.8-10.44); Carbon Dioxide 28 mmol/L (23-31); Chloride 106 mmol/L (98-107); Estimated GFR 75; Globulin 3.3 g/dL (2.4-3.5); Glucose 97 mg/dL (83-110); Magnesium 1.7 mg/dL (1.6-2.6); Protein, Total 7.3 g/dL (5.8-8.1); Sodium 142 mmol/L (136-145)
[2024-08-22 21:17] LABS: Troponin I 0.017 ng/mL (< 0.028)
[2024-08-22] MEDS ORDERED: Sodium Chloride 0.9% 100 ML ONE (23:01)
[2024-08-22] MEDS ORDERED: cefTRIAXone (ROCEPHIN) 2 GM VIAL ONE (23:01)
[2024-08-22] MEDS ORDERED: Enoxaparin 30 MG (0.3 mL) SYRINGE ONE (23:01)
[2024-08-22] MEDS ORDERED: cefTRIAXone (ROCEPHIN) 1 GM VIAL ONE (23:02)
[2024-08-22] MEDS ORDERED: Ondansetron PF 4 MG/2 ML Vial IVP PRN (23:02)
[2024-08-22] MEDS ORDERED: Ondansetron ODT 4 MG TAB PO PRN (23:02)
[2024-08-22] MEDS ORDERED: Enoxaparin 40 MG (0.4 mL) SYRINGE ONE (23:02)
[2024-08-23 00:24] VITALS: BMI 23.6
[2024-08-23 05:02] LABS: #Basophils 0.03 10x3/uL (0.0-0.2); %Basophils 0.6 % (0.0-1.0); %Eosinophils 4.3 % (0.0-10.0); %Lymphocytes 25.8 % (21.0-51.0); %Neutrophils 55.9 % (42.0-75.0); Hematocrit 36.5 % (36.0-47.0); Hemoglobin 11.9 g/dL (12.0-16.0); Mean Corpuscular HGB CONC 32.6 g/dL (32.0-36.0); Mean Corpuscular Hemoglobin 32.6 pg (27.0-31.0); Mean Platelet Volume 9.5 fL (7.4-10.4); Platelet Count 167 10x3/uL (130-400); RBC Distribution Width 12.7 % (11.5-14.5); Red Blood Cell (RBC) Count 3.65 mill/uL (4.20-5.40)
[2024-08-23 05:25] LABS: Albumin 3.4 g/dL (3.1-4.5); Chloride 107 mmol/L (98-107); Potassium 3.9 mmol/L (3.5-5.1); Sodium 141 mmol/L (136-145)
[2024-08-23 05:26] LABS: Glucose 91 mg/dL (83-110); Protein, Total 6.4 g/dL (5.8-8.1)
[2024-08-23 05:27] LABS: Anion Gap 12 mmol/L (10-20); Carbon Dioxide 26 mmol/L (23-31)
[2024-08-23 05:29] LABS: Alkaline Phosphatase 89 U/L (40-110); Bilirubin, Total 0.3 mg/dL (0.3-1.2)
[2024-08-23 05:30] LABS: BUN (Urea Nitrogen) 13 mg/dL (9.8-20.1); Calc. Creatinine Clearance 77 mL/min (70-130); Estimated GFR 91
[2024-08-23 05:32] LABS: ALT (SGPT) 7 U/L (Less than 34); AST (SGOT) 30 U/L (11-34)
[2024-08-23] MEDS ORDERED: HYDROcodone/Acetaminophen 10/325 mg Tablet PO PRN (07:51)
[2024-08-23] MEDS: Enoxaparin 80 MG (0.8 mL) SYRINGE SC SCH (08:56)
[2024-08-23] MEDS: Amlodipine 10 MG TAB PO SCH (08:57)
[2024-08-23] MEDS: Escitalopram Oxalate 10 mg Tablet PO SCH (08:57)
[2024-08-23] MEDS: Phenytoin Extended Release 100 MG CAP PO SCH (08:57)
[2024-08-23] MEDS: Famotidine 20 MG TAB PO SCH (08:57)
[2024-08-24] MEDS: cefTRIAXone\\ROCEPHIN 1 GM in Sodium Chloride 0.9% 100 ML IVPB SCH (00:52)
[2024-08-24] MEDS: Acetaminophen 325 MG TAB PO PRN (01:16)
[2024-08-24 04:08] LABS: #Basophils 0.04 10x3/uL (0.0-0.2); %Basophils 0.8 % (0.0-1.0); %Lymphocytes 26.1 % (21.0-51.0); %Monocytes 10.2 % (0.0-10.0); %Neutrophils 58.7 % (42.0-75.0); Hematocrit 37.9 % (36.0-47.0); Hemoglobin 12.3 g/dL (12.0-16.0); Mean Corpuscular HGB CONC 32.5 g/dL (32.0-36.0); Mean Corpuscular Hemoglobin 32.6 pg (27.0-31.0); Mean Corpuscular Volume 100.5 fL (78.0-98.0); Mean Platelet Volume 9.2 fL (7.4-10.4); Platelet Count 162 10x3/uL (130-400); RBC Distribution Width 12.9 % (11.5-14.5); Red Blood Cell (RBC) Count 3.77 mill/uL (4.20-5.40)
[2024-08-24 05:40] LABS: Anion Gap 14 mmol/L (10-20); BUN (Urea Nitrogen) 13 mg/dL (9.8-20.1); Calc. Creatinine Clearance 63 mL/min (70-130); Carbon Dioxide 23 mmol/L (23-31); Chloride 109 mmol/L (98-107); Estimated GFR 80; Glucose 94 mg/dL (83-110); Potassium 4.1 mmol/L (3.5-5.1); Sodium 142 mmol/L (136-145)
[2024-08-24] MEDS: Apixaban 5 MG TAB PO SCH (20:34)
[2024-08-24] MEDS: traMADol HCl 50 MG TAB PO PRN (23:34)
[2024-08-25 03:57] LABS: #Basophils 0.03 10x3/uL (0.0-0.2); %Basophils 0.6 % (0.0-1.0); %Eosinophils 3.9 % (0.0-10.0); %Lymphocytes 30.1 % (21.0-51.0); %Monocytes 12.7 % (0.0-10.0); %Neutrophils 52.5 % (42.0-75.0); Hematocrit 38.8 % (36.0-47.0); Hemoglobin 12.9 g/dL (12.0-16.0); Mean Corpuscular HGB CONC 33.2 g/dL (32.0-36.0); Mean Corpuscular Hemoglobin 32.8 pg (27.0-31.0); Mean Corpuscular Volume 98.7 fL (78.0-98.0); Mean Platelet Volume 9.3 fL (7.4-10.4); Platelet Count 168 10x3/uL (130-400); RBC Distribution Width 12.7 % (11.5-14.5); Red Blood Cell (RBC) Count 3.93 mill/uL (4.20-5.40)
[2024-08-25 04:09] LABS: Anion Gap 13 mmol/L (10-20); BUN (Urea Nitrogen) 16 mg/dL (9.8-20.1); Calc. Creatinine Clearance 60 mL/min (70-130); Calcium 9.3 mg/dL (7.8-10.44); Carbon Dioxide 25 mmol/L (23-31); Chloride 107 mmol/L (98-107); Estimated GFR 75; Glucose 86 mg/dL (83-110); Sodium 141 mmol/L (136-145)
[2024-08-25 11:52] VITALS: BP 135/60; TEMP 98.3
== END 2024-08-25 15:52 | disposition home or self-care (01) | DRG 176 ==
LOC: ERS 19:43 → PCU 23:04 → OBSVTOIN 08-23 11:38
PROVIDERS: ADMIT Internal Medicine; ATTEND Internal Medicine
DX: I26.99 Other pulmonary embolism without acute cor pulmonale (principal); N39.0 Urinary tract infection, site not specified; W19.XXXA Unspecified fall, initial encounter; F32.A Depression, unspecified; I10 Essential (primary) hypertension; G40.909 Epilepsy, unspecified, not intractable, without status epilepticus; Z90.49 Acquired absence of other specified parts of digestive tract; Z90.89 Acquired absence of other organs; Z79.899 Other long term (current) drug therapy; Z85.3 Personal history of malignant neoplasm of breast; Z86.011 Personal history of benign neoplasm of the brain; S22.43XD Multiple fractures of ribs, bilateral, subsequent encounter for fracture with routine healing
CPT/HCPCS: 36415; 36416; 51701; 70450; 71045; 71275; 72125; 74177; 80048; 80053; 81001; 83735; 83880; 84484; 85025; 87086; 93005; 96372; 96374; J0696; J1650; Q9967

== ENCOUNTER 2025-03-25 14:17 | Emergency (ER) | payer MEDICARE | END 2025-03-25 18:55 | disposition home or self-care (01) | LOC: ERS 14:17 | DX: S09.90XA Unspecified injury of head, initial encounter (principal); C71.9 Malignant neoplasm of brain, unspecified; C50.911 Malignant neoplasm of unspecified site of right female breast; M86.9 Osteomyelitis, unspecified; Z55.6 Problems related to health literacy; Z79.899 Other long term (current) drug therapy; W05.0XXA Fall from non-moving wheelchair, initial encounter; Y92.129 Unspecified place in nursing home as the place of occurrence of the external cause | CPT/HCPCS: 70450; 72125 ==

== ENCOUNTER 2025-04-07 22:45 | Emergency (ER) | payer MEDICARE ==
[2025-04-08 00:45] LABS: #Basophils 0.05 10x3/uL (0.0-0.2); #Eosinophils 0.19 10x3/uL (0.0-0.7); #Monocytes 0.73 10x3/uL (0.11-0.59); #Neutrophils 4.81 10x3/uL (1.40-6.50); %Basophils 0.7 % (0.0-1.0); %Eosinophils 2.6 % (0.0-10.0); %Lymphocytes 20.5 % (21.0-51.0); %Monocytes 10.0 % (0.0-10.0); %Neutrophils 66.1 % (42.0-75.0); Hematocrit 47.8 % (36.0-47.0); Hemoglobin 14.6 g/dL (12.0-16.0); Mean Corpuscular Hemoglobin 31.2 pg (27.0-31.0); Mean Corpuscular Volume 102.1 fL (78.0-98.0); Platelet Count 154 10x3/uL (130-400); Red Blood Cell (RBC) Count 4.68 mill/uL (4.20-5.40); White Blood Cell (WBC) Count 7.28 10x3/uL (4.8-10.8)
[2025-04-08 01:35] LABS: ALT (SGPT) 9 U/L (Less than 34); AST (SGOT) 19 U/L (11-34); Albumin 3.7 g/dL (3.1-4.5); Alkaline Phosphatase 102 U/L (40-110); Anion Gap 15 mmol/L (10-20); BUN (Urea Nitrogen) 18 mg/dL (9.8-20.1); Bilirubin, Total 0.3 mg/dL (0.3-1.2); CK (CPK) 32 U/L (29-168); Calc. Creatinine Clearance 0 mL/min (70-130); Calcium 9.3 mg/dL (7.8-10.44); Carbon Dioxide 25 mmol/L (23-31); Chloride 108 mmol/L (98-107); Globulin 3.0 g/dL (2.4-3.5); Glucose 87 mg/dL (83-110); Potassium 3.9 mmol/L (3.5-5.1); Sodium 144 mmol/L (136-145)
== END 2025-04-08 03:35 | disposition home or self-care (01) ==
LOC: ERS 22:45
DX: S09.90XA Unspecified injury of head, initial encounter (principal); F03.90 Unspecified dementia, unspecified severity, without behavioral disturbance, psychotic disturbance, mood disturbance, and anxiety; I10 Essential (primary) hypertension; W18.30XA Fall on same level, unspecified, initial encounter; Y93.89 Activity, other specified; Y92.091 Bathroom in other non-institutional residence as the place of occurrence of the external cause; Z55.6 Problems related to health literacy
CPT/HCPCS: 36415; 70450; 72125; 80053; 82550; 85025; 93005

== ENCOUNTER 2025-06-07 16:56 | Emergency (ER) | payer MEDICAID, MEDICARE ==
[2025-06-07] MEDS ORDERED: Acetaminophen 500 MG TAB ONE (19:35)
== END 2025-06-07 19:52 | disposition home or self-care (01) ==
LOC: ERS 16:56
DX: S42.034A Nondisplaced fracture of lateral end of right clavicle, initial encounter for closed fracture (principal); S42.211A Unspecified displaced fracture of surgical neck of right humerus, initial encounter for closed fracture; I10 Essential (primary) hypertension; J44.9 Chronic obstructive pulmonary disease, unspecified; W18.11XA Fall from or off toilet without subsequent striking against object, initial encounter; Y92.002 Bathroom of unspecified non-institutional (private) residence as the place of occurrence of the external cause
CPT/HCPCS: 23600; 70450; 72125

== ENCOUNTER 2025-06-22 16:39 | Emergency (ER) | payer MEDICARE ==
[2025-06-22] MEDS ORDERED: Acetaminophen 500 MG TAB ONE (18:27)
== END 2025-06-22 19:00 ==
LOC: ERS 16:39
DX: S09.90XA Unspecified injury of head, initial encounter (principal); I10 Essential (primary) hypertension; J44.9 Chronic obstructive pulmonary disease, unspecified; W06.XXXA Fall from bed, initial encounter; Y92.129 Unspecified place in nursing home as the place of occurrence of the external cause
CPT/HCPCS: 70450; 71045; 72125; 72128; 72131; 72170; 93005

== ENCOUNTER 2025-07-07 15:06 | Emergency (ER) | payer MEDICARE | END 2025-07-07 18:57 | disposition home or self-care (01) | LOC: ERS 15:06 | DX: S09.90XA Unspecified injury of head, initial encounter (principal); I10 Essential (primary) hypertension; J44.9 Chronic obstructive pulmonary disease, unspecified; W01.198A Fall on same level from slipping, tripping and stumbling with subsequent striking against other object, initial encounter | CPT/HCPCS: 70450 ==

== ENCOUNTER 2025-07-12 10:10 | Emergency (ER) | payer MEDICARE ==
[2025-07-12 12:07] LABS: #Basophils 0.03 10x3/uL (0.0-0.2); #Eosinophils 0.12 10x3/uL (0.0-0.7); #Monocytes 0.80 10x3/uL (0.11-0.59); #Neutrophils 3.34 10x3/uL (1.40-6.50); %Basophils 0.6 % (0.0-1.0); %Eosinophils 2.2 % (0.0-10.0); %Lymphocytes 21.3 % (21.0-51.0); %Monocytes 14.7 % (0.0-10.0); %Neutrophils 61.2 % (42.0-75.0); Hematocrit 43.1 % (36.0-47.0); Hemoglobin 13.5 g/dL (12.0-16.0); Mean Corpuscular Hemoglobin 31.5 pg (27.0-31.0); Mean Corpuscular Volume 100.7 fL (78.0-98.0); Platelet Count 141 10x3/uL (130-400); Red Blood Cell (RBC) Count 4.28 mill/uL (4.20-5.40); White Blood Cell (WBC) Count 5.45 10x3/uL (4.8-10.8)
[2025-07-12 12:17] LABS: ALT (SGPT) Less than 7 U/L (Less than 34); AST (SGOT) 18 U/L (11-34); Albumin 3.6 g/dL (3.1-4.5); Alkaline Phosphatase 108 U/L (40-110); Anion Gap 13 mmol/L (10-20); BUN (Urea Nitrogen) 13 mg/dL (9.8-20.1); Bilirubin, Total 0.2 mg/dL (0.3-1.2); CK (CPK) 32 U/L (29-168); Calc. Creatinine Clearance 0 mL/min (70-130); Calcium 8.9 mg/dL (7.8-10.44); Carbon Dioxide 22 mmol/L (23-31); Chloride 111 mmol/L (98-107); Globulin 2.8 g/dL (2.4-3.5); Glucose 71 mg/dL (83-110); Potassium 4.0 mmol/L (3.5-5.1); Sodium 142 mmol/L (136-145)
[2025-07-12 13:05] LABS: Magnesium 1.9 mg/dL (1.6-2.6)
== END 2025-07-12 21:24 | disposition home or self-care (01) ==
LOC: ERS 10:10
DX: R55 Syncope and collapse (principal); R94.31 Abnormal electrocardiogram [ECG] [EKG]; I10 Essential (primary) hypertension; J44.9 Chronic obstructive pulmonary disease, unspecified
CPT/HCPCS: 36415; 70450; 71045; 72125; 80053; 82550; 83735; 83880; 84484; 85025; 87077; 87086; 87186; 93005